=== PATIENT | male | born 1940 | race African-American/Black ===

== ENCOUNTER 2016-06-15 08:30 | Inpatient (IN) ==
--- NOTE | 2016-06-15 08:56 | Emergency Department Note ---
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 pt states having abd swelling . states he was seen here last week for same complaint. Mode of Arrival: Stretcher Limitations: No Limitations Source: Patient, Old Records Reviewed, RN Notes Reviewed Time Seen by Provider: 06/15/16 08:45 - History of Present Illness HPI Narrative: Patient is a 75-year-old black male with a known history of shortness of breath for the last 3 weeks. Patient was seen last week in the emergency department and diagnosed with congestive heart failure. Patient has a history of hypertension. He states that he has been taking his medications. He is unsure why he is on chronic anticoagulation. Patient states that he has orthopnea and wakes up multiple times during the night short of breath. The patient has dyspnea on exertion and can only walk short distances before becoming short of breath. Patient's Lasix was increased last week. He denies any lower extremity edema. Patient denies alcohol use over the last 20 years. He does not smoke having quit about 20 years ago at the same time he quit drinking. Onset (ago): week(s) (3) Consistency: constant Severity: moderate Allergies/Adverse Reactions: Allergies Allergy/AdvReac Type Severity Reaction Status Date / Time No Known Allergies Allergy Verified 03/30/15 08:48 Home Medications: Home Medications Medication Instructions Recorded Confirmed Type Allopurinol [Zyloprim] 300 mg PO QAM 06/03/16 06/15/16 History Carvedilol [Coreg] 25 mg PO BID 06/03/16 06/15/16 History Colchicine 0.6 mg PO QAM 06/03/16 06/15/16 History Furosemide Tab [Lasix Tab] 40 mg PO DAILY 06/03/16 06/15/16 History Potassium Chloride [Klor-Con M20] 20 meq PO BID 06/03/16 06/15/16 History Warfarin [Coumadin] 1 - 2 mg PO DAILY 06/03/16 06/15/16 History amLODIPine [Norvasc] 10 mg PO QAM 06/03/16 06/15/16 History Loratadine Tab [Claritin Tab] 10 mg PO DAILY 06/15/16 06/15/16 History Review of System - Review of System 12 point system: reviewed and no additional remarkable complaints except as stated - Review of System Constitutional: Absent: chills, fever Respiratory: Present: cough. Absent: respiratory distress, wheezing Cardiovascular: Present: dyspnea on exertion, orthopnea. Absent: chest pain, edema, syncope Medical,Surgical,& Family Hx - Medical History Cardio: History of: Hypertension, Cardiovascular Problems (? heart problems) Rheumatology: History of;: Gout - Social History Smoking Status: Never smoker Frequency of Alcohol Use: None Type of Drug Use: None Functional capacity: independent ambulation Exam Vital Signs: Vital Signs Temperature 98.4 F 06/15/16 08:30 Pulse Rate 91 H 06/15/16 08:30 Respiratory Rate 18 06/15/16 08:50 Blood Pressure 140/78 06/15/16 08:30 O2 Sat by Pulse Oximetry 99 06/15/16 08:30 GENERAL: This is a well-nourished well-developed black male chronically ill- appearing in no apparent distress. VITAL SIGNS: Reviewed HEENT: Head is atraumatic and normocephalic. Pupils are equal round react to light. Extraocular movements are intact. Oropharynx is benign with moist mucous membranes. NECK: Neck is soft and supple without tenderness. There are no masses. There is no lymphadenopathy. LUNGS: Lungs are clear to auscultation. Chest rises symmetrically. There is no chest wall tenderness. CV: Heart is regular rate and rhythm without murmurs rubs or gallops. No JVD. ABDOMEN: Abdomen is soft, nontender to palpation. There are no abdominal abnormal masses palpated. There is no organomegaly. Bowel sounds are present and active. SKIN: Skin is warm and dry. No rash. EXTREMITIES: Patient has full range of motion without tenderness. There is no pedal edema. NEUROLOGIC: Awake alert and oriented 4. Cranial nerves II through XII are grossly intact. Motor is 5 over 5 in all extremities bilaterally. Course - Consultations Consultation #1: Discussed with hospitalist. Patient will be admitted to their service. Time: 10:32 Results - Labs CBC & BMP: 06/15/16 08:42 06/15/16 08:42 Lab Results: I have reviewed the patients labs Labs: Laboratory Tests 06/15/16 08:42 B-Natriuretic Peptide 436 H - EKG EKG results: interpreted by ERMD - Impressions EKG: Normal sinus rhythm with rate of 89, first-degree AV block, LVH with ST segment changes. Normal axis. - Diagnostic Findings Procedure: Chest x-ray: image reviewed by me (Increased pulmonary markings bilaterally) Disposition Clinical Impression: Congestive heart failure, Essential hypertension, LVH (left ventricular hypertrophy), Chronic anticoagulation Case discussed with: patient Disposition: Still a Patient Condition: Stable Time of Disposition: 10:32
[2016-06-15 09:03] LABS: Basophils # 0.1 10*3/uL (0.0-0.2); Basophils % 0.5 % (0.0-0.8); Eosinophils # 0.1 10*3/uL (0.0-0.87); Eosinophils % 1.2 % (0.00-10.9); Immature Granulocytes % 0.6 %; Immature Granulocytes Absolute 0.07 #; Lymphocytes # 1.4 10*3/uL (1.4-4.0); Lymphocytes % 11.6 % (21.2-54.2); Mean Corpuscular HGB Conc 33.3 GM/DL (32-36); Mean Corpuscular Hemoglobin 33 PG (27-34); Mean Corpuscular Volume 98.2 FL (87-102); Mean Platelet Volume 12.5 FL (9.6-12.0); Monocytes # 0.7 10*3/uL (0.11-0.8); Monocytes % 6.1 % (1.7-12.7); Neutrophils # 9.7 10*3/uL (1.4-7.4); Platelet Count 236 T/CUMM (130-400); Red Blood Count 3.36 MC/CUMM (3.8-5.5); White Blood Count 12.2 T/CUMM (4-12)
--- NOTE | 2016-06-15 09:13 | XRay Report ---
Chest, 2 views History short of breath Comparison 06/03/2016 The heart and vessels are enlarged. Hilar contours unchanged The lungs are chronically hyperbarics and 8 There has been development of increasing bilateral hazy and interstitial pulmonary opacities with curly B lines in the lung bases and this light increasing pleural fluid. No more focal consolidation is seen Impression: Worsening of the pulmonary edema PROCEDURE INTERPRETED AT [facility] DEPARTMENT OF RADIOLOGY Final Report Signed by: Dr. Shanda Leach
[2016-06-15 09:18] LABS: INR 3.5
[2016-06-15 09:20] LABS: Apearance,Urine CLEAR (Clear); Bilirubin,Urine Negative (Negative); Blood, Urine Negative (Negative); Glucose,Urine (UA) Negative (Negative); Hyaline Casts,Urine 1 /LPF (0-3); Ketones,Urine Negative (Negative); Mucus,Urine Occasional /LPF (Occasional); Nitrite,Urine Negative (Negative); Protein,Urine >=500 MG/DL; RBC,Urine <1 /HPF (0-4); Squamous Epithelial Cell,Urine Occasional /HPF (0-10); Urine Color Yellow (Yellow); Urine Specific Gravity 1.014 (1.001-1.035); Urine Urobilinogen < 2.0 EU/DL (0.2-1.0); WBC,Urine <1 /HPF (0-6)
[2016-06-15 09:23] LABS: PT Patient Result 39.6 SECS; Partial Thromboplastin Time 58.7 SECS (0-40)
[2016-06-15 09:27] LABS: Barbiturates Screen,Urine Negative (Negative); Benzodiazepines Screen,Urine Negative (Negative); Cannabinoid Screen,Urine Negative (Negative); Opiate Screen,Urine Negative (Negative); Phencyclidine Screen,Urine Negative (Negative)
[2016-06-15 09:36] LABS: Alanine Aminotransferase 42 U/L (16-61); Albumin 3.6 G/DL (3.4-5.0); Alkaline Phosphatase 66 U/L (45-117); Aspartate Amino Transferase 29 U/L (0-37); Blood Urea Nitrogen 24 MG/DL (7-18); Calcium 8.5 MG/DL (8.5-10.1); Glucose 93 MG/DL (74-106); Osmolality,Calculated 284.3 MOS/KG (273-304); Potassium 4.3 MMOL/L (3.5-5.1); Sodium 141 MMOL/L (136-145); Total Protein 6.6 G/DL (6.4-8.3); Troponin I Only < 0.015 NG/ML (0.00-0.045)
--- NOTE | 2016-06-15 11:14 | Ultrasound Report ---
History short of breath Bilateral lower extremity venous Doppler performed with grayscale, spectral Doppler, and color flow analysis performed and interpreted. No evidence of echogenic, noncompressible thrombus seen in either common femoral, superficial femoral, popliteal, or saphenous veins Impression: No evidence of DVT seen in either lower extremity. PROCEDURE INTERPRETED AT [facility] DEPARTMENT OF RADIOLOGY Final Report Signed by: Dr. Shanda Leach
--- NOTE | 2016-06-15 11:18 | Hospitalist History & Physical ---
Assessment and Plan (1) Chronic anticoagulation Status: Acute Assessment and plan: The patient requires life-long anticoagulation due to paroxysmal atrial fib. We will obtain baseline PT/INR and adjust accordingly. Current Visit: Yes (2) Congestive heart failure Status: Acute Assessment and plan: We will obtain echocardiogram, bilateral venous and carotid dopplers. Will obtain BNP, lipid and thyroid panel now. CXR, CMP, Mg, Phos, and CBC in AM. Current Visit: Yes (3) Essential hypertension Status: Acute Assessment and plan: Will resume home medications and manage during the clinical encounter. Current Visit: Yes (4) LVH (left ventricular hypertrophy) Status: Acute Assessment and plan: Will obtain echocardiogram to assess current heart function. Will consult cardiology to assist in management. Current Visit: Yes History of Present Illness Chief complaint: "shortness of breath" History of present illness: This is a pleasant 75 year-old male that presents to the ED this morning with a chief compliant of "shortness of breath". The patient has a rather extensive medical history of hypertension, paroxysmal atrial fibrillation , hypertensive cardiomyopathy, and gouty arthritis. He also reports a remote history of alcohol and tobacco abuse; however reports he reports "stopping over 20 years ago". He reports the onset of shortness of breath about "two months ago " with gradual worsening of condition; for which he presented to the ED two times in recent months. He reports that the dyspnea is increased with exertion and during the night time hours. Pertinent positives include: cough ,vertigo, and dyspnea. Pertinent negatives include: chest pain, nausea, and vomiting. He reports that he is a current patient of Dr. Scanlon; whom currently manages his coumadin and cardiomyopathy. He will be admitted to the hospitalist services for continuation of care. We will consult Dr. Scanlon patient is known to him to assist in his care during this clinical encounter. Home Medications Medication Instructions Recorded Confirmed Type Allopurinol [Zyloprim] 300 mg PO QAM 06/03/16 06/15/16 History Carvedilol [Coreg] 25 mg PO BID 06/03/16 06/15/16 History Colchicine 0.6 mg PO QAM 06/03/16 06/15/16 History Furosemide Tab [Lasix Tab] 40 mg PO DAILY 06/03/16 06/15/16 History Potassium Chloride [Klor-Con M20] 20 meq PO BID 06/03/16 06/15/16 History Warfarin [Coumadin] 1 - 2 mg PO DAILY 06/03/16 06/15/16 History amLODIPine [Norvasc] 10 mg PO QAM 06/03/16 06/15/16 History Loratadine Tab [Claritin Tab] 10 mg PO DAILY 06/15/16 06/15/16 History Allergies Allergy/AdvReac Type Severity Reaction Status Date / Time No Known Allergies Allergy Verified 03/30/15 08:48 Medical,Surgical,& Family Hx - Medical History Cardio: History of: Hypertension, Cardiovascular Problems (? heart problems) Rheumatology: History of;: Gout - Social History Smoking Status: Former smoker (Remote history; reports stopping in 1999) Frequency of Alcohol Use: None (Remote histroy of ETOH abuse;reports stopping in 1999) Type of Drug Use: None 12 point system: reviewed and no additional remarkable complaints except as stated Exam - Constitutional Vitals: Period Temp Pulse Resp BP Sys/Garcia Pulse Ox Last 24 Hr 98.4 F-98.4 F 91-91 18-18 140-140/78-78 99 General appearance: normal weight, no acute distress - Head Head exam: Present: normal inspection, normocephalic, atraumatic - Eye Eye exam: Present: EOMI Pupils: Present: LORETTA - ENT ENT exam: Present: normal exam - Neck Neck exam: Present: normal inspection. Absent: lymphadenopathy, meningismus, tenderness, thyromegaly - Respiratory Respiratory exam: Present: decreased breath sounds. Absent: accessory muscle use, rales, rhonchi, stridor, wheezes - Cardiovascular Cardiovascular exam: Present: regular rate and rhythm. Absent: gallop, JVD, rubs, tachycardia - GI/Abdominal GI/Abdominal exam: Present: normal bowel sounds, soft. Absent: firm, guarding - Extremities Exam Extremities exam: Present: full ROM. Absent: normal inspection, edema - Back Exam Back exam: Present: normal inspection - Neurological Exam Neurological exam: Present: alert, oriented X3, CN II-XII intact - Psychiatric Psychiatric exam: Present: normal affect - Skin Skin exam: Present: normal color, dry Results - Labs CBC & BMP: 06/15/16 08:42 06/15/16 08:42 Lab Results: I have reviewed the past 24 hour labs Quality Measures - VTE Deep Vein Thrombosis/Pulmonary Embolism Present on Admission: No
--- NOTE | 2016-06-15 13:37 | Ultrasound Report ---
History is hypertension Grayscale, spectral Doppler, and color flow analysis performed and interpreted There is a [id number] amount of soft and partially calcified plaque in the distal common and proximal internal carotid arteries bilaterally There is more prominent elongated soft plaque in the distal common carotid artery on the right maximum systolic velocities are 73 in the right and 49 on the left Peak systolic ratios are 0.3 on the right and 1.1 on the left There is antegrade flow in both vertebral arteries NASCET criteria utilized Impression: 1. Mild to moderate amounts of plaque with less than 50% diameter stenoses of both proximal ICAs. 2. Elevated velocities and large amount of soft plaque in the distal common carotid artery on the right raising question of at least moderate right common carotid artery stenosis PROCEDURE INTERPRETED AT [facility] DEPARTMENT OF RADIOLOGY Final Report Signed by: Dr. Shanda Leach
[2016-06-15] MEDS ORDERED: MORPHINE 2 MG/1 ML SYRINGE IV PRN (15:45)
[2016-06-15] MEDS ORDERED: ONDANSETRON 4 MG/2 ML VIAL IV PRN (15:45)
[2016-06-15] MEDS ORDERED: DOCUSATE SODIUM 100 MG CAPSULE PO PRN (15:45)
[2016-06-15] MEDS ORDERED: ZALEPLON 5 MG CAPSULE PO PRN (15:45)
[2016-06-15] MEDS ORDERED: ACETAMINOPHEN 325 MG TABLET PO PRN (15:45)
[2016-06-15] MEDS ORDERED: guaiFENesin/DM ER 600-30 MG TABLET PO PRN (15:45)
[2016-06-15] MEDS ORDERED: ALBUTEROL/IPRATROPIUM 3 ML NEB RESP TX PRN (15:49)
[2016-06-15] MEDS ORDERED: methylPREDNISolone SOD SUC 125 MG/2 ML VIAL IV ONE (15:49)
[2016-06-15] MEDS ORDERED: FUROSEMIDE 40 MG/4 ML VIAL IV STA (15:51)
[2016-06-15] MEDS ORDERED: FUROSEMIDE 40 MG/4 ML VIAL IV SCH (16:00)
[2016-06-15] MEDS: ALBUTEROL/IPRATROPIUM 3 ML NEB RESP TX SCH ×2 (16:01→20:42)
[2016-06-15] MEDS: cefTRIAXone 1,000 MG in SODIUM CHLORIDE 0.9% 100 ML IV SCH (17:07)
[2016-06-15 17:13] LABS: INR 3.1
[2016-06-15 17:29] LABS: Troponin I Only < 0.015 NG/ML (0.00-0.045)
--- NOTE | 2016-06-15 17:48 | ECHO Report ---
Aki Terry Exam Date: 06/15/2016 09:36 Referring Physician: Technologist: Age: 75 Ht (in): Wt (lb): Gender: M Exam Location: [facility] Echo Indications: BP: / HR: Rhythm: Sinus Technical Quality: IMPRESSIONS Mildly increased left ventricular cavity size. Mild concentric hypertrophy. Severe global hypokinesis, estimated left ventricle ejection fraction 15%. Grade 3 diastolic dysfunction. Mildly dilated right ventricle, with normal systolic function and mild pulmonary hypertension. Mild biatrial enlargement. Mild to moderate mitral valve regurgitation. Mild aortic valve sclerosis, without stenosis or insufficiency. MEASUREMENTS (Male / Female) Normal Values 2D ECHO LV Diastolic Diameter PLAX 5.1 cm 4.2 - 5.9 / 3.9 - 5.3 cm LV Systolic Diameter PLAX 4.9 cm LV Fractional Shortening PLAX 4.1 % IVS Diastolic Thickness 1.1 cm 0.6 - 1.0 / 0.6 - 0.9 cm LVPW Diastolic Thickness 1.2 cm 0.6 - 1.0 / 0.6 - 0.9 cm RV Internal Dim ED PLAX 2.6 cm Aortic Root Diameter 2.9 cm LA Systolic Diameter LX 4.3 cm 3.0 - 4.0 / 2.7 - 3.8 cm DOPPLER TR Peak Velocity 345.0 cm/s TR Peak Gradient 47.6 mmHg FINDINGS Left Ventricle Mildly increased left ventricular cavity size. Mild concentric hypertrophy. Severe global hypokinesis, estimated left ventricle ejection fraction 15%. Grade 3 diastolic dysfunction Right Ventricle Mildly dilated right ventricle, with normal systolic function. Right Atrium Mild right atrial enlargement. Left Atrium Mild left atrial enlargement. Mitral Valve Mild to moderate mitral valve regurgitation, structurally normal mitral valve. Aortic Valve Mild aortic valve sclerosis, without stenosis or insufficiency. Tricuspid Valve Mild tricuspid valve sclerosis. Moderate tricuspid valve regurgitation. Tricuspid regurgitation velocities suggest a PAP of 47.6 mmHg + RAP. Pulmonic Valve Morphologically normal pulmonic valve. Pericardium No pericardial effusion. Aorta Normal size aortic root and proximal ascending aorta. Amarjit Dockery (Electronically Signed) Final Date: 15 June 2016 17:47
--- NOTE | 2016-06-15 17:59 | Cardiology Consult Note ---
Roby Grier Vanessa, RN, am scribing for, and in the presence of, Amarjit Dockery MD 17 :57. Assessment and Plan - Time spent with patient Time spent with patient: Greater than 30 minutes (Due to assessment, planning, documentation, medication review) (1) Congestive heart failure Status: Acute Assessment and plan: 75 year old black male with PMHx of HTN, NICM, PAF, CRI, hypertensive heart disease, former tobacco and ETOH abuse, GERD. He has chronic dyspnea and easy fatigability. Admitted with worsening of shortness of breath, orthopnea, PND, and abd swelling over the past 3-4 days. 12 lead EKG is without acute ST changes , cardiac biomarkers are normal. Chest x-ray with worsening of pulmonary edema vs CXR on 06/03/16. LVEF 15%, mild PHTN. NSVT on telemetry. Na, Bp in normal range. -Acute on chronic systolic plus diastolic CHF. Fair response to diuretics so far. Continue Lasix 40 mg IV twice daily, monitor electrolytes and replete as needed. -Nonsustained VT. Continue beta-giovana, as blood pressure allows. -If becomes hypotensive, may hold CCB -Follow renal Fx. May add ACEI if stable. Otherwise, NTG/hydralazine will be an option -He seems to be adequately perfused, but has severe systolic dysfunction. It is difficult to diurese, may consider dobutamine or milrinone. -PAF. No in SR. Continue anticoagulation with Coumadin. -Cardiac rehab consult Current Visit: Yes (2) NICM (nonischemic cardiomyopathy) Status: Acute Current Visit: Yes (3) Chronic anticoagulation Status: Acute Current Visit: Yes (4) Essential hypertension Status: Acute Current Visit: Yes (5) LVH (left ventricular hypertrophy) Status: Acute Current Visit: Yes History of Present Illness - Data of Consult Patient: known to practice within the last 3 years Consult date: 06/15/16 Requesting Physician: Hugh Davila Primary care physician: Zaida Nieves - Consult Narrative Reason for consult: shortness of breath History of present illness: Mr. Terry is a 75 year old black male followed by Dr. Pino Scanlon for cardiology. PMHx includes HTN, hypertensive heart disease, NICM with EF 35-40%, paroxsymal AF, chronic anticoagulation, former tobacco and ETOH abuse, GERD, gout, and arthritis. Presented to the ER today with c/o of increasing dyspnea at rest and with exertion, orthopnea, and abd swelling, onset 3-4 days ago. He was seen in the ER with same complaint on 06/03/16 with similar complaint. Chest x-ray on 06/03 with pulmonary edema vs PNA. Home Lasix dosage was increased from 40 mg by mouth daily to twice daily. Chest x-ray today showed worsening of pulmonary edema. He is now admitted to telemetry to hospitalist service for further treatment of CHF. Cardiology has been consulted for evaluation. 12 lead EKG shows SR with pulse rate 80s, LVH, no acute ST segment changes. Venous doppler US BLE's negative for DVT findings. Carotid doppler US mild to moderate plaque with less than 50% stenoses of bilateral proximal ICA's. Cardiac biomarkers are normal. BNP on today's blood work is 436 (599 on 06/03). Other labs reviewed: WBC 12,200, H/H 11 & 33, INR 3.5, K+ 4.3, creatinine is 1.5 with GFR 56 (last creatinine 1.9 on 06/03), Na+ 141. Last cardiac catheterization was in 1998. He has widely patent coronary arteries and decreased LV EF 25-30% range. Says he has not seen Dr. Scanlon in clinic in "about 2 years." He does go for routine INR checks at [facility] as he is anticoagulated with Coumadin for stroke prevention. Last echocardiogram December 2014 with EF 35-40%, severe anteroapical hypokinesis, mild TR with PA pressure 40 mmHg, aortic sclerosis, grade I diastolic dysfunction. Echocardiogram has been ordered this admission and will be reviewed. Patient seen and examined in room on telemetry. Family is present at bedside. His resp distress improved.effort. Oxygen via NC. Denies recent or current CP. Denies recent or current LE edema. Reports chronic shortness of breath, but orthopnea worsened over the past few days and he has to elevate to 90 degrees to breathe comfortably. Reports PND which has worsened over last 3-4 days also. No recent chills or fever. Does have wet, nonproductive cough. Denies phlegm production. Slight abd discomfort with palpation, no rebound tenderness, and it is not severely distended. BP is 140/70. CC: Erika Da Silva MD - Home Medications and Allergies Home Medications: Home Medications Medication Instructions Recorded Confirmed Type Allopurinol [Zyloprim] 300 mg PO QAM 06/03/16 06/15/16 History Carvedilol [Coreg] 25 mg PO BID 06/03/16 06/15/16 History Colchicine 0.6 mg PO QAM 06/03/16 06/15/16 History Furosemide Tab [Lasix Tab] 40 mg PO DAILY 06/03/16 06/15/16 History Potassium Chloride [Klor-Con M20] 20 meq PO BID 06/03/16 06/15/16 History Warfarin [Coumadin] 3 mg PO MOWEFR 06/03/16 06/15/16 History amLODIPine [Norvasc] 10 mg PO QAM 06/03/16 06/15/16 History Hydrocodone/Acetaminophen 1 tablet PO TID PRN 06/15/16 06/15/16 History [Hydrocodon-Acetaminoph 7.5-325] Loratadine Tab [Claritin Tab] 10 mg PO DAILY 06/15/16 06/15/16 History Warfarin [Coumadin] 1.5 mg PO TUTHSA 06/15/16 06/15/16 History Allergies/Adverse Reactions: Allergies Allergy/AdvReac Type Severity Reaction Status Date / Time No Known Allergies Allergy Verified 03/30/15 08:48 - Constitutional Constitutional: Present: daytime sleepiness, weakness. Absent: chills, fever(s) , night sweats, stops breathing during sleep, weight gain, weight loss - EENT Ears: Absent: decreased hearing Nose, mouth and throat: Absent: dysphagia, epistaxis, neck pain, sinus pressure , throat swelling, vertigo - Cardiovascular Cardiovascular: Present: dyspnea, dyspnea on exertion, orthopnea, PND. Absent: chest pain at rest, chest pain with activity, claudication, diaphoresis, edema, radiating jaw, neck or arm pain, lightheadedness, palpitations - Respiratory Respiratory: Present: cough (nonproductive), dyspnea, dyspnea on exertion, wheezing (expiratory). Absent: hemoptysis, snoring, change in phlegm color - Gastrointestinal Gastrointestinal: Absent: abdominal pain, bloating, constipation, cramping, dyspepsia, dysphagia, heartburn, melena, nausea, vomiting - Genitourinary Genitourinary: Present: difficulty urinating, dysuria. Absent: flank pain, hematuria, testicular pain, urinary frequency, urinary incontinence - Musculoskeletal Musculoskeletal: Present: arthralgias. Absent: limited range of motion, myalgias - Neurological Neurological: Absent: abnormal speech, confusion, dizziness, syncope, tremor(s) - Psychiatric Psychiatric: Absent: anxiety, difficulty concentrating - Endocrine Endocrine: Present: fatigue. Absent: cold intolerance, heat intolerance - Hematologic/Lymphatic Hematologic/Lymphatic: Present: easy bleeding, easy bruising Medical,Surgical,& Family Hx - Medical History Cardio: History of: Cardiac Dysrhythmia (pAF), CHF, Hypertension, Cardiovascular Problems (: states has "heart problems and heart doctor but doenst know why") No history of: Congenital Heart Disease, VT, Pacemaker, PVD Neurology: No history of: Seizures, TIA Endocrine: No history of: Diabetes Mellitus (IDDM), Diabetes Mellitus (NIDDM) Rheumatology: History of;: Gout Respiratory: History of: COPD Renal: History of: Renal Problems (Chronic renal insufficiency) Gastrointestinal: History of: GERD Musculoskeletal: History of: Musculoskeletal Problems (Arthritis) Hematology: No history of: Anemia, Bleeding Problems, Clotting Problems, Hematologic Cancer Other: No history of: Cancer - Surgical History Cardiac Surgeries: Sugical HX of: Cardiac Catheterization (1998- patent coronaries, EF 25-30%) Patient Denies: Cardiac Surgery, Carotid Endarterectomy, Internal Defibrillator HEENT Surgeries: Patient denies: Carotid Endarterectomy - Family History Family History: Reports;: Family Diabetes (brother mother), Family Heart Disease , Family Hypertension, Family Stroke - Social History Smoking Status: Never smoker Frequency of Alcohol Use: None Type of Drug Use: None Marital Status: Single Functional capacity: independent ambulation Physical Examination Vital Signs Temp Pulse Resp BP Pulse Ox 98.4 F 91 H 18 140/78 99 06/15/16 08:30 06/15/16 08:30 06/15/16 08:30 06/15/16 08:30 06/15/16 08:30 General: Present: Other (mild distress) HEENT: Present: PERRL, Normocephaly, Mucus Membranes Moist. Absent: Jaundice, Pallor Neck: Present: Supple Neck, Midline Trachea, JVD/HJR, No Masses, No Bruit Cardiac: Present: Reg Rate and Rhythm, No Murmur. Absent: Tachycardia, Bradycardia Lungs: Present: Decreased Breath Sounds, Rales - Left, Rales - Right, Wheezes ( expirational; RLL), Oxygen. Absent: Ventilated Respirations Neuro: Present: Grossly Intact. Absent: Numbness, Weakness, Resting Tremor, Essential Tremor Abdomen: Present: Soft, Active Bowel Sounds. Absent: Ascites, Tender, Firm Skin: Present: Clear. Absent: Rash, Suspicious Lesions Musculoskeletal: Present: Decreased Range of Motion, No Fluid Collection Extremities: Present: No Clubbing, No Cyanosis, Normal Upper Extr. Pulses (2+ bilaterally), Normal Lower Extr. Pulses (2+ bilaterally), Capillary Refill ( normal) Result/EKG - Labs CBC & BMP: 06/15/16 08:42 06/15/16 08:42 Lab Results: I have reviewed the past 24 hour labs Labs: Laboratory Results - last 24 hr 06/15/16 06/15/16 16:21 16:21 INR 3.1 PT Patient/Control Mix 35.0 Total Creatine Kinase 111 CK-MB (CK-2) 1.5 Troponin I < 0.015 - Diagnostic Findings Procedure: Chest x-ray: report reviewed by me, image reviewed by me (06/15/16: Worsening of pulmonary edema when compared to film on 06/03/16), Ultrasound: image reviewed by me, report reviewed by me - EKG EKG results: interpreted by me EKG shows: sinus rhythm Quality Measures - VTE Deep Vein Thrombosis/Pulmonary Embolism Present on Admission: No Nahed Grier Attila, MD, personally performed the services described in this documentation, ascribed by Cathy Ca RN in my presence, and it is both accurate and complete 759 .
[2016-06-15] MEDS ORDERED: WARFARIN 3 MG TABLET PO SCH (18:00)
[2016-06-15] MEDS: POTASSIUM CHLORIDE 20 MEQ TABLET PO SCH (20:25)
[2016-06-15] MEDS: CARVEDILOL 25 MG TABLET PO SCH (20:26)
[2016-06-15 22:28] LABS: Troponin I Only < 0.015 NG/ML (0.00-0.045)
[2016-06-16] MEDS: methylPREDNISolone SOD SUC 125 MG/2 ML VIAL IV SCH ×4 (00:25→23:53)
[2016-06-16] MEDS: ALBUTEROL/IPRATROPIUM 3 ML NEB RESP TX SCH ×4 (01:06→19:46)
[2016-06-16 06:25] LABS: Hematocrit 32.9 VOL% (42.0-52.0); Immature Granulocytes % 0.6 %; Immature Granulocytes Absolute 0.04 #; Lymphocytes # 0.6 10*3/uL (1.4-4.0); Lymphocytes % 8.7 % (21.2-54.2); Mean Corpuscular HGB Conc 33.4 GM/DL (32-36); Mean Corpuscular Hemoglobin 33 PG (27-34); Mean Corpuscular Volume 98.2 FL (87-102); Mean Platelet Volume 12.9 FL (9.6-12.0); Monocytes % 0.6 % (1.7-12.7); Neutrophils # 5.9 10*3/uL (1.4-7.4); Neutrophils % 90.1 % (38.7-73.9); Platelet Count 189 T/CUMM (130-400); Red Blood Count 3.35 MC/CUMM (3.8-5.5); Red Cell Distribution Width 15.7 % (9.3-17.3); White Blood Count 6.5 T/CUMM (4-12)
[2016-06-16 06:39] LABS: INR 2.7
[2016-06-16 07:01] LABS: Magnesium 2.7 MG/DL (1.8-2.4); Phosphorous 1.8 MG/DL (2.5-4.9)
[2016-06-16 07:12] LABS: Blood Urea Nitrogen 30 MG/DL (7-18); Calcium 8.9 MG/DL (8.5-10.1); Cholesterol 173 MG/DL (50-200); Glucose 209 MG/DL (74-106); HDL Cholesterol 66 MG/DL (40-60); Potassium 4.2 MMOL/L (3.5-5.1); Risk Ratio 2.62; Sodium 136 MMOL/L (136-145); Triglycerides 117 MG/DL (2-150); Troponin I Only < 0.015 NG/ML (0.00-0.045); VLDL CHOLESTEROL 23.4 MG/DL
--- NOTE | 2016-06-16 07:44 | XRay Report ---
Referring Physician: ALCON Davila Exam: XR chest 1V portable Date: June 16, 2016 at 6:12 AM Reason: COPD Comparison: Chest 2 views June 15, 2016 Findings: The heart is borderline enlarged. The interstitial markings are prominent bilaterally, which likely reflects mild pulmonary edema. No pneumothorax or pleural effusion is identified. No acute osseous process is seen. Impression: Mild pulmonary edema, improved since the previous study. PROCEDURE INTERPRETED AT [facility] DEPARTMENT OF RADIOLOGY Final Report Signed by: Dr. Susu Sanon
[2016-06-16] MEDS ORDERED: FUROSEMIDE 20 MG/2 ML VIAL IV ONE (08:02)
[2016-06-16] MEDS: amLODIPine 10 MG TABLET PO SCH (09:12)
[2016-06-16] MEDS: COLCHICINE 0.6 MG TABLET PO SCH (09:12)
[2016-06-16] MEDS: PANTOPRAZOLE 40 MG TABLET PO SCH (09:13)
[2016-06-16] MEDS: CARVEDILOL 25 MG TABLET PO SCH ×2 (09:13→21:16)
[2016-06-16] MEDS: POTASSIUM CHLORIDE 20 MEQ TABLET PO SCH ×2 (09:14→21:20)
[2016-06-16] MEDS: LORATADINE 10 MG TABLET PO SCH (09:14)
[2016-06-16] MEDS: ALLOPURINOL 300 MG TABLET PO SCH (09:14)
[2016-06-16] MEDS: FUROSEMIDE 40 MG/4 ML VIAL IV SCH ×2 (09:38→15:45)
--- NOTE | 2016-06-16 10:06 | EKG Report ---
Stationary ECG Study 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
--- NOTE | 2016-06-16 11:09 | Hospitalist Progress Note ---
Assessment and Plan (1) Chronic anticoagulation Status: Chronic Assessment and plan: The patient requires life-long anticoagulation due to paroxysmal atrial fib. Coumadin held on yesterday; INR 3.1. INR today 2.7; will resume Coumadin dose per Cardiology recommendations. Current Visit: Yes (2) Congestive heart failure Status: Acute Assessment and plan: Diuresed on yesterday; however BNP increased to 797 from 436 on yesterday. Will give an extra dose of lasix this morning and recheck BNP in AM. Current Visit: Yes (3) Essential hypertension Status: Chronic Assessment and plan: Will resume home medications and manage during the clinical encounter. Current Visit: Yes (4) LVH (left ventricular hypertrophy) Status: Chronic Assessment and plan: Echo on yesterday confirmed an EF of 15%. Cardiology to mange medically. Current Visit: Yes (5) Paroxysmal atrial fibrillation Status: Acute Assessment and plan: Continue coumadin per Cardiology recommendations. Current Visit: Yes (6) Renal function impairment Status: Acute Assessment and plan: Subtle changes in renal function; BUN/Creatinine 30/1.90 today; up from 24/1.50 on yesterday. Agree with Cardiology recommendations to start nitrates/hydralize. Current Visit: Yes Hospitalist: Subjective Interval history: Patient seen and examined. No signficant overnight events reported. Diuresed on yesterday; UOP significant; however BNP elevated further at 797 up from 436. He appears to be in no acute distress and is not short of breath at the time of encounter. He states " I feel much better than I did when I came here". Exam - Constitutional Vitals: Period Temp Pulse Resp BP Sys/Garcia Pulse Ox Last 24 Hr 97.2 F-99.2 F 60-112 16-20 119-146/57-81 93-100 General appearance: normal weight, no acute distress - Head Head exam: Present: normal inspection, normocephalic - Eye Eye exam: Present: EOMI. Absent: conjunctival injection, nystagmus, periorbital swelling, scleral icterus Pupils: Present: LORETTA, normal accommodation - ENT ENT exam: Present: normal exam - Neck Neck exam: Present: normal inspection. Absent: lymphadenopathy, meningismus, tenderness, thyromegaly - Respiratory Respiratory exam: Present: decreased breath sounds. Absent: rales, rhonchi, stridor, wheezes - Cardiovascular Cardiovascular exam: Present: regular rate and rhythm. Absent: carotid bruit, diastolic murmur, gallop, JVD, rubs, systolic murmur - GI/Abdominal GI/Abdominal exam: Present: normal bowel sounds, soft. Absent: distended, guarding, mass, tenderness - Extremities Exam Extremities exam: Present: normal inspection, edema (+2 lower extremeties) - Neurological Exam Neurological exam: Present: alert, oriented X3, CN II-XII intact - Psychiatric Psychiatric exam: Present: normal affect, normal mood - Skin Skin exam: Present: normal color, warm, dry Results - Labs CBC & BMP: 06/16/16 05:42 06/16/16 05:42 Lab Results: I have reviewed the past 24 hour labs Quality Measures - VTE Deep Vein Thrombosis/Pulmonary Embolism Present on Admission: No Specialty Discharge - Follow Up or Referrals
[2016-06-16] MEDS: cefTRIAXone 1,000 MG in SODIUM CHLORIDE 0.9% 100 ML IV SCH (16:22)
--- NOTE | 2016-06-16 16:55 | Cardiology Progress Note ---
Roby Grier Vanessa, RN, am scribing for, and in the presence of, Amarjit Dockery MD 16 :50. Assessment and Plan - Time spent with patient Time spent with patient: Greater than 30 minutes (1) Congestive heart failure Status: Acute Assessment and plan: 75 year old black male with PMHx of HTN, NICM, PAF, CRI, hypertensive heart disease, former tobacco and ETOH abuse, GERD. He has chronic dyspnea and easy fatigability. Admitted with worsening of shortness of breath, orthopnea, PND, and abd swelling over the past 3-4 days. 12 lead EKG is without acute ST changes , cardiac biomarkers remain normal. CXR with improvement of pulmonary edema today. Echo yesterday with LV EF 15%, mild PHTN. BP good range. 1. Acute on chronic systolic + diastolic CHF. Continue diuresis with IV Lasix. Continue to monitor electrolytes, replete as needed. 2. NSVT- continue BB. BP tolerating well. 3. HTN - well controlled 4. Worsened CMP. Add Imdur 30 mg qd, hydralazine 10 mg tid. If hypotension limit dose titration, may d/c amlodipine. CKD limits ACEI 5. PAF- remains in SR. Continue Coumadin 6. NSVT - no recurrence since CHF improved. If LVEF remains depressed despite medical management, he can be a candidate for ICD. No SCIENTIFIC ILLUSTRATOR indication Current Visit: Yes (2) NICM (nonischemic cardiomyopathy) Status: Chronic Current Visit: Yes (3) Chronic anticoagulation Status: Chronic Current Visit: Yes (4) Essential hypertension Status: Chronic Current Visit: Yes (5) LVH (left ventricular hypertrophy) Status: Chronic Current Visit: Yes Cardiology - PN: Subj Interval history: Feeling much better today. Denies CP, SOB. Some mild FONSECA with ambulation to bathroom and back to bed. BP stable. Chest x-ray with some improvement, BNP is elevated today to 797. Creatinine increased to 1.9 today. SR with HR 80s. Telemetry reviewed and no recurrence of NSVT overnight. Exam (Progress Note) - Constitutional Vitals: Period Temp Pulse Resp BP Sys/Garcia Pulse Ox Last 24 Hr 97.2 F-99.2 F 60-112 16-20 119-146/57-81 93-100 Exam: General: Present: No acute distress HEENT: Present: PERRL, Normocephaly, Mucus Membranes Moist. Absent: Jaundice, Pallor Neck: Present: Supple Neck, Midline Trachea, JVD/HJR, No Masses, No Bruit Cardiac: Present: Reg Rate and Rhythm, No Murmur. Absent: Tachycardia, Bradycardia Lungs: Present: Decreased Breath Sounds, scattered rales throughout-some improvement today, Oxygen. Absent: Ventilated Respirations, wheeze, rhonchi Neuro: Present: Grossly Intact. Absent: Numbness, Weakness, Resting Tremor, Essential Tremor Abdomen: Present: Soft, Active Bowel Sounds. Absent: Ascites, Tender, Firm Skin: Present: Clear. Absent: Rash, Suspicious Lesions Musculoskeletal: Present: Decreased Range of Motion, No Fluid Collection Extremities: Present: No Clubbing, No Cyanosis, Normal Upper Extr. Pulses (2+ bilaterally), Normal Lower Extr. Pulses (2+ bilaterally), Capillary Refill ( normal) Result/EKG - Labs CBC & BMP: 06/16/16 05:42 06/16/16 05:42 Lab Results: I have reviewed the past 24 hour labs Labs: Laboratory Results - last 24 hr 06/15/16 06/15/16 06/15/16 16:21 16:21 21:21 WBC RBC Hgb Hct MCV MCH MCHC RDW Plt Count MPV Neut % (Auto) Lymph % (Auto) [place]not[place] % (Auto) Eos % (Auto) Baso % (Auto) Neut # (Auto) Lymph # (Auto) [place] # (Auto) Eos # (Auto) Baso # (Auto) Immature Gran % Nucleated RBC % Immature Gran # Nucleated RBCs # INR 3.1 PT Patient/Control Mix 35.0 Sodium Potassium Chloride Carbon Dioxide Anion Gap BUN Creatinine GFR Calculation BUN/Creatinine Ratio Glucose Calculated Osmolality Calcium Phosphorus Magnesium Total Creatine Kinase 111 114 CK-MB (CK-2) 1.5 1.4 Troponin I < 0.015 < 0.015 B-Natriuretic Peptide Triglycerides Cholesterol LDL Cholesterol VLDL Cholesterol HDL Cholesterol Heart Disease Risk Ratio TSH 3rd Generation 06/16/16 06/16/16 06/16/16 05:42 05:42 05:42 WBC RBC Hgb Hct MCV MCH MCHC RDW Plt Count MPV Neut % (Auto) Lymph % (Auto) [place] % (Auto) Eos % (Auto) Baso % (Auto) Neut # (Auto) Lymph # (Auto) [place] # (Auto) Eos # (Auto) Baso # (Auto) Immature Gran % Nucleated RBC % Immature Gran # Nucleated RBCs # INR 2.7 PT Patient/Control Mix 31.0 Sodium 136 Potassium 4.2 Chloride 103 Carbon Dioxide 23 Anion Gap 14.2 BUN 30 H Creatinine 1.90 H GFR Calculation 42 BUN/Creatinine Ratio 15.00 Glucose 209 H Calculated Osmolality 283.0 Calcium 8.9 Phosphorus Magnesium Total Creatine Kinase 115 CK-MB (CK-2) 1.0 Troponin I < 0.015 B-Natriuretic Peptide 797 H Triglycerides 117 Cholesterol 173 LDL Cholesterol 97.0 VLDL Cholesterol 23.4 HDL Cholesterol 66 H Heart Disease Risk Ratio 2.62 TSH 3rd Generation 1.210 06/16/16 06/16/16 05:42 05:42 WBC 6.5 D RBC 3.35 L Hgb 11.0 L Hct 32.9 L MCV 98.2 MCH 33 MCHC 33.4 RDW 15.7 Plt Count 189 MPV 12.9 H Neut % (Auto) 90.1 H Lymph % (Auto) 8.7 L Knott % (Auto) 0.6 L Eos % (Auto) 0.0 Baso % (Auto) 0.0 Neut # (Auto) 5.9 Lymph # (Auto) 0.6 L K[place]t # (Auto) 0.0 L Eos # (Auto) 0.0 Baso # (Auto) 0.0 Immature Gran % 0.6 Nucleated RBC % 0.0 Immature Gran # 0.04 Nucleated RBCs # 0.00 INR PT Patient/Control Mix Sodium Potassium Chloride Carbon Dioxide Anion Gap BUN Creatinine GFR Calculation BUN/Creatinine Ratio Glucose Calculated Osmolality Calcium Phosphorus 1.8 L Magnesium 2.7 H Total Creatine Kinase CK-MB (CK-2) Troponin I B-Natriuretic Peptide Triglycerides Cholesterol LDL Cholesterol VLDL Cholesterol HDL Cholesterol Heart Disease Risk Ratio TSH 3rd Generation - Diagnostic Findings Procedure: Chest x-ray: image reviewed by me, report reviewed by me (06/16/16: mild pulmonary edema; improved from previous film) - EKG EKG results: interpreted by me EKG shows: sinus rhythm Quality Measures - VTE Deep Vein Thrombosis/Pulmonary Embolism Present on Admission: No Specialty Discharge - Follow Up or Referrals Nahed Grier Attila, MD, personally performed the services described in this documentation, ascribed by Cathy Ca RN in my presence, and it is both accurate and complete 655 .
[2016-06-16] MEDS ORDERED: WARFARIN 2 MG TABLET ONE (17:39)
[2016-06-16] MEDS ORDERED: WARFARIN 3 MG TABLET PO SCH (18:00)
[2016-06-16] MEDS: hydrALAZINE 10 MG TABLET PO SCH (21:20)
[2016-06-16] MEDS: ISOSORBIDE MONONITRATE 30 MG TABLET PO SCH (21:21)
[2016-06-17] MEDS: ALBUTEROL/IPRATROPIUM 3 ML NEB RESP TX SCH ×2 (01:33→06:56)
[2016-06-17 04:03] LABS: Basophils % 0.1 % (0.0-0.8); Hematocrit 30.3 VOL% (42.0-52.0); Hemoglobin 10.1 GM/DL (14.0-18.0); Immature Granulocytes % 0.6 %; Immature Granulocytes Absolute 0.07 #; Lymphocytes # 0.8 10*3/uL (1.4-4.0); Lymphocytes % 6.7 % (21.2-54.2); Mean Corpuscular HGB Conc 33.3 GM/DL (32-36); Mean Corpuscular Hemoglobin 33 PG (27-34); Mean Corpuscular Volume 97.7 FL (87-102); Mean Platelet Volume 13.2 FL (9.6-12.0); Monocytes # 0.2 10*3/uL (0.11-0.8); Monocytes % 1.5 % (1.7-12.7); NRBC # 0.03 10*3/uL; Neutrophils # 10.6 10*3/uL (1.4-7.4); Neutrophils % 91.1 % (38.7-73.9); Platelet Count 189 T/CUMM (130-400); Red Cell Distribution Width 15.6 % (9.3-17.3); White Blood Count 11.6 T/CUMM (4-12)
[2016-06-17 04:13] LABS: INR 2.4
[2016-06-17 04:23] LABS: PT Patient Result 27.4 SECS
[2016-06-17 04:39] LABS: Albumin 3.3 G/DL (3.4-5.0); Bilirubin,Total 0.6 MG/DL (0.2-1.0); Calcium 8.9 MG/DL (8.5-10.1); Hypochromasia Slight; Lymphocytes 5 % (20-55); Osmolality,Calculated 289.5 MOS/KG (273-304); Phosphorous 3.1 MG/DL (2.5-4.9); Platelet Estimate Adequate; Potassium 4.6 MMOL/L (3.5-5.1); Segmented Neutrophils 95 % (50-85); Target Cells Slight; Total Cells Counted 100; Total Protein 6.2 G/DL (6.4-8.3)
[2016-06-17 04:40] LABS: Magnesium 2.8 MG/DL (1.8-2.4); Osmolality,Calculated 287.7 MOS/KG (273-304); Potassium 4.6 MMOL/L (3.5-5.1)
[2016-06-17 08:36] VITALS: BP 115/76
[2016-06-17] MEDS: CARVEDILOL 25 MG TABLET PO SCH (08:46)
[2016-06-17] MEDS: POTASSIUM CHLORIDE 20 MEQ TABLET PO SCH (08:46)
[2016-06-17] MEDS: PANTOPRAZOLE 40 MG TABLET PO SCH (08:46)
[2016-06-17] MEDS: ISOSORBIDE MONONITRATE 30 MG TABLET PO SCH (08:46)
[2016-06-17] MEDS: amLODIPine 10 MG TABLET PO SCH (08:46)
[2016-06-17] MEDS: COLCHICINE 0.6 MG TABLET PO SCH (08:46)
[2016-06-17] MEDS: hydrALAZINE 10 MG TABLET PO SCH (08:46)
[2016-06-17] MEDS: LORATADINE 10 MG TABLET PO SCH (08:46)
[2016-06-17] MEDS: ALLOPURINOL 300 MG TABLET PO SCH (08:46)
--- NOTE | 2016-06-17 08:49 | Discharge Summary ---
<Sidra Davilada - Last Filed: 06/17/16 09:00> Hospital Course - Hospital Course Hospital Course: This is a pleasant 75 year-old male that presented to the ED on 06/15 with a chief compliant of "shortness of breath". The patient has a rather extensive medical history of hypertension, paroxysmal atrial fibrillation , hypertensive cardiomyopathy, and gouty arthritis. He also reported a remote history of alcohol and tobacco abuse; however reported that he "stopping over 20 years ago". He reported the onset of shortness of breath about two months ago prior to admission with gradual worsening of condition; for which he presented to the ED two times in recent months. He reported that the dyspnea was increased with exertion and during the night time hours. Pertinent positives include: cough ,vertigo,and dyspnea. Pertinent negatives include: chest pain, nausea, and vomiting. He reported that he is a current patient of Dr. Scanlon; whom currently manages his coumadin and cardiomyopathy. He was be admitted to the hospitalist services for continuation of care. Dr. Scanlon was consulted; the patient was known to him.He assisted in his care during the clinical encounter. At the time of admission, the patient was noted to be experiencing severe dyspnea. He was gently diuresed and his symptoms improved. An echocardiogram was performed to assess current heart function; which revealed significant left ventricular systolic dysfunction with an ejection fraction of 15%. His medication regimen was adjusted on yesterday, Imdur and Hydralazine were started. His condition is stable. He has not experienced any significant overnight events. After speaking with Cardiology this morning, we agree that the patient is appropriate for discharge. He is to follow-up with Dr. Scanlon in 2 weeks. Diagnosis - Discharge Diagnosis (1) Chronic anticoagulation Status: Chronic (2) Congestive heart failure Status: Acute (3) Essential hypertension Status: Chronic (4) LVH (left ventricular hypertrophy) Status: Chronic (5) Paroxysmal atrial fibrillation Status: Acute (6) Renal function impairment Status: Acute Specialty Discharge - Follow Up or Referrals Follow up with: Gary Scanlon MD [Primary Care Provider] - 07/02/16 8:00 am Discharge Plan - Discharge Data Disposition: Disch To Home/Self Care - Discharge Medications New Albuterol Inhaler [Proventil Inhaler] 2 puff INH Q6H PRN #1 inhaler PRN Reason: Shortness Of Breath/Wheezing Isosorbide Mononitrate [Imdur] 30 mg PO DAILY #30 tablet hydrALAZINE TAB [Apresoline Tab] 10 mg PO TID #90 tablet methylPREDNISolone DOSEPAK [Medrol Dosepak] 4 mg PO DIRECTED #1 pack Continue amLODIPine [Norvasc] 10 mg PO QAM Furosemide Tab [Lasix Tab] 40 mg PO DAILY Colchicine 0.6 mg PO QAM Warfarin [Coumadin] 3 mg PO MOWEFR Potassium Chloride [Klor-Con M20] 20 meq PO BID Allopurinol [Zyloprim] 300 mg PO QAM Hydrocodone/Acetaminophen [Hydrocodon-Acetaminoph 7.5-325] 1 tablet PO TID PRN PRN Reason: Pain Carvedilol [Coreg] 25 mg PO BID Loratadine Tab [Claritin Tab] 10 mg PO DAILY Warfarin [Coumadin] 1.5 mg PO TUTHSA - Follow Up or Referral Follow Up: Gary Scanlon MD [Primary Care Provider] - 07/02/16 8:00 am - Forms/Instructions Instructions: Heart Failure (GEN), Low Sodium Diet (GEN) Exam - Constitutional Vitals: Period Temp Pulse Resp BP Sys/Garcia Pulse Ox Last 24 Hr 97.3 F-99 F 72-87 14-20 91-134/67-76 96-100 General appearance: normal weight, no acute distress - Head Head exam: Present: normal inspection, normocephalic - Eye Eye exam: Present: EOMI. Absent: conjunctival injection, nystagmus, periorbital swelling, scleral icterus Pupils: Present: LORETTA, normal accommodation - ENT ENT exam: Present: normal exam - Neck Neck exam: Present: normal inspection - Respiratory Respiratory exam: Present: clear to auscultation bilaterally. Absent: accessory muscle use, chest wall tenderness, decreased breath sounds, prolonged expiratory phase, rales, rhonchi, stridor, wheezes - Cardiovascular Cardiovascular exam: Present: regular rate and rhythm. Absent: carotid bruit, diastolic murmur, gallop, JVD, rubs, systolic murmur - GI/Abdominal GI/Abdominal exam: Present: normal bowel sounds, soft. Absent: distended, firm , tenderness - Extremities Exam Extremities exam: Absent: normal inspection, full ROM - Back Exam Back exam: Present: normal inspection - Neurological Exam Neurological exam: Present: alert, oriented X3, CN II-XII intact - Psychiatric Psychiatric exam: Present: normal affect, normal mood - Skin Skin exam: Present: normal color, warm, dry Discharge Results Labs on day of discharge: Labs from last 24 hours 06/17/16 06/17/16 06/17/16 03:19 03:19 03:19 WBC RBC Hgb Hct MCV MCH MCHC RDW Plt Count MPV Neut % (Auto) Lymph % (Auto) [place] % (Auto) Eos % (Auto) Baso % (Auto) Neut # (Auto) Lymph # (Auto) [place] # (Auto) Eos # (Auto) Baso # (Auto) Total Counted Immature Gran % Nucleated RBC % Immature Gran # Segmented Neutrophils Lymphocytes Nucleated RBCs # Platelet Estimate Hypochromasia Target Cells INR 2.4 PT Patient/Control Mix 27.4 Sodium 139 138 Potassium 4.6 4.6 Chloride 106 105 Carbon Dioxide 22 22 Anion Gap 15.6 H 15.6 H BUN 40 H 40 H D Creatinine 2.00 H 2.00 H GFR Calculation 39 39 BUN/Creatinine Ratio 20.00 20.00 Glucose 159 H 159 H Calculated Osmolality 289.5 287.7 Calcium 8.9 9.0 Phosphorus 3.1 Magnesium 2.8 H Total Bilirubin 0.60 AST 14 ALT 27 Alkaline Phosphatase 59 Total Protein 6.2 L Albumin 3.3 L Globulin 2.9 Albumin/Globulin Ratio 1.1 06/17/16 03:19 WBC 11.6 D RBC 3.10 L Hgb 10.1 L Hct 30.3 L MCV 97.7 MCH 33 MCHC 33.3 RDW 15.6 Plt Count 189 MPV 13.2 H Neut % (Auto) 91.1 H Lymph % (Auto) 6.7 L [place] % (Auto) 1.5 L Eos % (Auto) 0.0 Baso % (Auto) 0.1 Neut # (Auto) 10.6 H Lymph # (Auto) 0.8 L [place] # (Auto) 0.2 Eos # (Auto) 0.0 Baso # (Auto) 0.0 Total Counted 100 Immature Gran % 0.6 Nucleated RBC % 0.3 Immature Gran # 0.07 Segmented Neutrophils 95 H Lymphocytes 5 L Nucleated RBCs # 0.03 Platelet Estimate Adequate Hypochromasia Slight Target Cells Slight INR PT Patient/Control Mix Sodium Potassium Chloride Carbon Dioxide Anion Gap BUN Creatinine GFR Calculation BUN/Creatinine Ratio Glucose Calculated Osmolality Calcium Phosphorus Magnesium Total Bilirubin AST ALT Alkaline Phosphatase Total Protein Albumin Globulin Albumin/Globulin Ratio DS: Provider Date of admission: 06/15/16 10:41 Primary care physician: Gary Scanlon MD Attending physician on admission: Erika Da Silva MD Consults: 06/15/16 10:44 Consult to Physician [CONS] Routine Comment: Consulting Provider: Gary Scanlon When should Consulting Provider be notified: Now 06/15/16 16:16 Consult to Pharmacy [CONS] Routine Reason for Pharmacy Consult: Adjust Meds Renal Funct 06/15/16 17:59 Consult to Cardiac Rehabilitation [CONS] Routine Reason for Cardiac Rehabilitation: Risk Factor Modification Discharging clinician: Hugh Davila CNP <Erika Da Silva - Last Filed: 06/17/16 09:54> Hospital Course - Hospital Course Hospital Course: I evaluated this patient and completed an independent history and physical examination. I coordinated care with BOSTON Martinez. I agree with the documentation that she provides below. The patient was seen and examined by cardiology. Medications were adjusted. The patient was aggressively diuresed with IV Lasix. His ejection fraction is noted to be 15%. He is no longer short of breath and his chest x-ray is much improved. His symptoms have resolved and he is being discharged home. He is instructed to follow-up with cardiology as an outpatient in [address] Scanlon. INR is therapeutic and Coumadin is continued. A steroid taper was given due to his history of COPD with acute exacerbation in addition to congestive heart failure acute on chronic left-sided systolic with acute exacerbation. The patient's renal function worsened during the course of the hospitalization with increasing creatinine with diuretics. Unfortunately this was necessary to adequately diurese him and improve his respiratory distress related to pulmonary edema and congestive heart failure. - Time spent with patient Time with patient DS: Greater than 30 minutes (Total discharge time for this patient, including [id number] time, clinical documentation, medication reconciliation, and discharge planning was 41 minutes.) Diagnosis - Discharge Diagnosis (1) VILMA (acute kidney injury) Status: Acute (2) Congestive heart failure Status: Chronic (3) Essential hypertension Status: Chronic (4) LVH (left ventricular hypertrophy) Status: Chronic (5) Chronic anticoagulation Status: Chronic (6) NICM (nonischemic cardiomyopathy) Status: Chronic (7) Paroxysmal atrial fibrillation Status: Chronic Discharge Plan - Discharge Data Condition at Discharge: Stable Discharge Diet: heart healthy Activity: resume usual activities as tolerated Hygiene: no restrictions Weight Bearing at Discharge: full weight bearing Driving: no restrictions Contact your physician if you experience:: fever over 101, Nausea/Vomiting, Shortness of breath, pain uncontrolled by pain medications DS: Provider Expected date of discharge: 06/17/16
[2016-06-17] MEDS: methylPREDNISolone SOD SUC 125 MG/2 ML VIAL IV SCH (08:51)
[2016-06-17] MEDS: FUROSEMIDE 40 MG/4 ML VIAL IV SCH (08:51)
--- NOTE | 2016-06-17 09:04 | XRay Report ---
Portable chest. Indication: COPD. Comparison: June 16, 2016. The heart is normal in size. The pulmonary vasculature is mildly prominent. The left lung is clear. Patchy infiltrate has developed in the right lung base. No pneumothorax or pleural effusion. Stable osseous structures. Orthopedic hardware in the right humerus. Impression: Development of mild infiltrate in the right lung base. Venous congestion, stable. PROCEDURE INTERPRETED AT [facility] DEPARTMENT OF RADIOLOGY Final Report Signed by: Dr. Leida Leach
== END 2016-06-17 12:20 | disposition home or self-care (01) | DRG 291 ==
LOC: EDBD → EDUNIT# → N.ED 08:30 → N.EDINP 10:41 → N.TELES 12:08
PROVIDERS: ADMIT Family Medicine; ATTEND Family Medicine

== ENCOUNTER 2016-08-13 17:21 | Inpatient (IN) ==
[2016-08-13] MEDS ORDERED: methylPREDNISolone SOD SUC 125 MG/2 ML VIAL IV ONE (17:54)
[2016-08-13] MEDS ORDERED: ALBUTEROL 2.5 MG/3 ML NEB RESP TX STA (17:54)
--- NOTE | 2016-08-13 17:55 | Emergency Department Note ---
Eduar Grier Manpreet, am scribing for, and in the presence of, Hernan Turner MD 17:51. Johnny Grier Robert M, MD, personally performed the services described in this documentation, ascribed by Scotty Witt in my presence, and it is both accurate and complete [id number] . 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 Pt denies having CP and tobacco use. Pt had an inhaler but he states it did not work. No other pains/complaints reported to ED. Onset (ago): hour(s) Consistency: constant Severity: mild, moderate Severity scale (1-10): 4 Allergies/Adverse Reactions: Allergies Allergy/AdvReac Type Severity Reaction Status Date / Time No Known Allergies Allergy Verified 08/03/16 06:08 Home Medications: Home Medications Medication Instructions Recorded Confirmed Type Allopurinol [Zyloprim] 300 mg PO QAM 06/03/16 08/13/16 History Furosemide Tab [Lasix Tab] 40 mg PO DAILY 06/03/16 08/13/16 History Warfarin [Coumadin] 3 mg PO DAILY 06/03/16 08/13/16 History Loratadine Tab [Claritin Tab] 10 mg PO DAILY 06/15/16 08/13/16 History Albuterol Inhaler [Proventil 2 puff INH Q6H PRN #1 inhaler 06/17/16 08/13/16 Rx Inhaler] hydrALAZINE TAB [Apresoline Tab] 10 mg PO TID #90 tablet 06/17/16 08/13/16 Rx Isosorbide Mononitrate [Isosorbide 30 mg PO DAILY 07/14/16 08/13/16 History Mononitrate ER] Potassium Chloride [Klor-Con M20] 20 meq PO BID 07/14/16 08/13/16 History Colchicine [Colcrys] 0.6 mg PO DAILY 07/16/16 08/13/16 History Ibuprofen Tab [Motrin Tab] 600 mg PO QID #30 tablet 08/03/16 08/13/16 Rx Methocarbamol Tab [Robaxin Tab] 500 mg PO QID PRN #20 tablet 08/03/16 08/13/16 Rx Review of System - Review of System 12 point system: reviewed and no additional remarkable complaints except as stated - Review of System Constitutional: Absent: chills, diaphoresis, fever Respiratory: Present: respiratory distress, wheezing. Absent: cough Cardiovascular: Absent: chest pain, dyspnea on exertion Gastrointestinal: Absent: abdominal pain, nausea, vomiting Musculoskeletal: Absent: back pain Neurological: Absent: headache, weakness Medical,Surgical,& Family Hx - Medical History Cardio: History of: Cardiac Dysrhythmia (AF), CHF, Hypertension, Cardiovascular Problems (: states has "heart problems and heart doctor but doenst know why" DR PEARSON) No history of: Congenital Heart Disease, [place], Pacemaker, PVD Neurology: No history of: Seizures, TIA HEENT: History of: Eye Problem (GLASSES) Endocrine: No history of: Diabetes Mellitus (IDDM), Diabetes Mellitus (NIDDM) Rheumatology: History of;: Gout Respiratory: History of: COPD, Respiratory Problems (SOB) Renal: History of: Renal Problems (Chronic renal insufficiency) Gastrointestinal: History of: GERD, GI Problems (OCCASIONAL CONSTIPATION) Musculoskeletal: History of: Musculoskeletal Problems (Arthritis) Hematology: No history of: Anemia, Bleeding Problems, Clotting Problems, Hematologic Cancer Other: No history of: Cancer - Surgical History Cardiac Surgeries: Sugical HX of: Cardiac Catheterization (1998- patent coronaries, EF 25-30%) Patient Denies: Cardiac Surgery, Carotid Endarterectomy, Internal Defibrillator HEENT Surgeries: Patient denies: Carotid Endarterectomy Orthopedic Surgeries: Surgical HX of;: Implanted Devices (PINS LEFT SHOULDER), Orthopedic Surgery (LEFT SHOULDER) - Family History Family History: Reports;: Family Diabetes (brother mother), Family Heart Disease , Family Hypertension, Family Stroke - Social History Smoking Status: Never smoker Frequency of Alcohol Use: None Type of Drug Use: None Exam Vital Signs: Vital Signs Temperature 97.3 F L 08/13/16 18:20 Pulse Rate 109 H 08/13/16 18:20 Respiratory Rate 08/13/16 18:20 Blood Pressure 132/65 08/13/16 18:20 O2 Sat by Pulse Oximetry 99 06/01/17 18:11 - General General appearance: alert, in no apparent distress - Head Head exam: Present: atraumatic, normocephalic, normal inspection - Eye Eye exam: Present: normal appearance, PERRL, EOMI - ENT ENT exam: Present: normal exam, normal oropharynx, mucous membranes moist, TM's normal bilaterally - Neck Neck exam: Present: normal inspection, full ROM, trachea midline. Absent: tenderness, thyromegaly - Chest Chest inspection: Present: normal inspection, symmetric chest wall rise - Respiratory Respiratory exam: Present: respiratory distress, wheezes - Cardiovascular Cardiovascular exam: Present: regular rate, normal rhythm, normal heart sounds - Abdominal Exam Abdominal exam: Present: soft, normal bowel sounds. Absent: distention, tenderness - Extremities Exam Extremities exam: Present: normal inspection - Back Exam Back exam: Present: normal inspection, full ROM. Absent: tenderness - Neurological Exam Neurological exam: Present: alert, oriented X3, CN II-XII intact, reflexes normal - Psychiatric Psychiatric exam: Present: normal affect, normal mood - Skin Skin exam: Present: warm, dry, intact, normal color. Absent: pallor Course - Reevaluation(s) Reevaluation #1: The patient has improved. He does seem to have more of a CHF/pulmonary edema component than asthma. I will admit him to the hospitalist service. Time: 20:00 - Consultations Consultation #1: Dr. Tony Hunt will admit the patient. Time: 20:00 Results - Labs CBC & BMP: 08/13/16 18:07 08/13/16 18:07 Disposition Clinical Impression: Congestive heart failure, Essential hypertension, LVH (left ventricular hypertrophy), NICM (nonischemic cardiomyopathy), Chronic anticoagulation, Renal function impairment Case discussed with: patient, patient's family Disposition: Still a Patient Condition: Stable Time of Disposition: 20:04
[2016-08-13] MEDS ORDERED: methylPREDNISolone SOD SUC 125 MG/2 ML VIAL ONE (18:03)
--- NOTE | 2016-08-13 18:18 | XRay Report ---
XR chest 1V portable Indication: Chest pain/SOB Comparison: Chest x-ray dated July 14, 2016 Technique: Frontal views of the chest. Findings: Mild cardiomegaly. There is nonspecific prominence of lung markings suspicious for interstitial pulmonary edema. Chronic/fibrotic change and interstitial pneumonia may have similar appearance. More hazy opacification within the bilateral infrahilar regions suspicious for consolidating pulmonary edema or pneumonia. Constellation of findings most consistent with pulmonary edema/CHF. Visualized osseous and surrounding soft tissue structures appear grossly unchanged. Metallic foreign body again projects over the left axillary region. IMPRESSION: As above. PROCEDURE INTERPRETED AT [facility] DEPARTMENT OF RADIOLOGY Final Report Signed by: Dr Demetrius Mackay
[2016-08-13 18:19] LABS: Basophils # 0.1 10*3/uL (0.0-0.2); Basophils % 0.5 % (0.0-0.8); Eosinophils # 0.4 10*3/uL (0.0-0.87); Eosinophils % 2.2 % (0.00-10.9); Hematocrit 31.8 VOL% (42.0-52.0); Hemoglobin 10.6 GM/DL (14.0-18.0); Immature Granulocytes % 0.5 %; Immature Granulocytes Absolute 0.09 #; Lymphocytes # 1.8 10*3/uL (1.4-4.0); Lymphocytes % 9.6 % (21.2-54.2); Mean Corpuscular HGB Conc 33.3 GM/DL (32-36); Mean Corpuscular Hemoglobin 33 PG (27-34); Mean Corpuscular Volume 98.5 FL (87-102); Mean Platelet Volume 11.7 FL (9.6-12.0); Monocytes # 1.3 10*3/uL (0.11-0.8); Neutrophils # 14.8 10*3/uL (1.4-7.4); Neutrophils % 80.2 % (38.7-73.9); Platelet Count 287 T/CUMM (130-400); Red Blood Count 3.23 MC/CUMM (3.8-5.5); Red Cell Distribution Width 16.7 % (9.3-17.3); White Blood Count 18.5 T/CUMM (4-12)
[2016-08-13] MEDS ORDERED: FUROSEMIDE 40 MG/4 ML VIAL IV STA (18:50)
[2016-08-13] MEDS ORDERED: FUROSEMIDE 40 MG/4 ML VIAL ONE (19:07)
[2016-08-13 19:17] LABS: Blood Urea Nitrogen 19 MG/DL (7-18); Calcium 8.7 MG/DL (8.5-10.1); Glucose 105 MG/DL (74-106); Magnesium 2.2 MG/DL (1.8-2.4); Osmolality,Calculated 280.4 MOS/KG (273-304); Potassium 4.3 MMOL/L (3.5-5.1); Sodium 140 MMOL/L (136-145); Troponin I Only < 0.015 NG/ML (0.00-0.045)
[2016-08-13] MEDS ORDERED: METHOCARBAMOL 500 MG TABLET PO PRN (21:15)
--- NOTE | 2016-08-13 21:15 | Hospitalist History & Physical ---
Assessment and Plan (1) Acute on chronic systolic CHF (congestive heart failure) Status: Acute Current Visit: Yes (2) Chronic kidney disease, stage III (moderate) Status: Acute Current Visit: Yes (3) Chronic anticoagulation Status: Acute Current Visit: Yes (4) Essential hypertension Status: Chronic Current Visit: Yes (5) Paroxysmal atrial fibrillation Status: Chronic Assessment and plan: Plan: Start IV Lasix, daily weights, ins and outs, continue remainder of his CHF medical therapy. Mildly elevated white blood cell count, nonproductive cough, may consider antibiotics if repeat CBC shows persistent WBC elevation Hold NSAIDs Daily PT/INR Duo nebs, supplemental oxygen, supportive care Current Visit: No History of Present Illness Chief complaint: Worsening shortness of breath History of present illness: Mr. Terry is a 75 year old male with chronic systolic CHF, EF 15% on echo in June 2016, here with worsening shortness of breath since earlier today. Worse with exertion. He denies chest pain, nausea vomiting or diarrhea. He has a dry cough, no fever. He reports increased swelling of his lower extremities however at the bedside they appear fairly unremarkable. He states he feels "a little bloated," but has had a normal bowel movement earlier today. He states he is compliant with his medications including diuretics. He denies dysuria. He states he is having to use his walker a little bit more due to weakness and shortness of breath. Home Medications Medication Instructions Recorded Confirmed Type Allopurinol [Zyloprim] 300 mg PO QAM 06/03/16 08/13/16 History Furosemide Tab [Lasix Tab] 40 mg PO DAILY 06/03/16 08/13/16 History Warfarin [Coumadin] 3 mg PO DAILY 06/03/16 08/13/16 History Loratadine Tab [Claritin Tab] 10 mg PO DAILY 06/15/16 08/13/16 History Albuterol Inhaler [Proventil 2 puff INH Q6H PRN #1 inhaler 06/17/16 08/13/16 Rx Inhaler] hydrALAZINE TAB [Apresoline Tab] 10 mg PO TID #90 tablet 06/17/16 08/13/16 Rx Isosorbide Mononitrate [Isosorbide 30 mg PO DAILY 07/14/16 08/13/16 History Mononitrate ER] Potassium Chloride [Klor-Con M20] 20 meq PO BID 07/14/16 08/13/16 History Colchicine [Colcrys] 0.6 mg PO DAILY 07/16/16 08/13/16 History Ibuprofen Tab [Motrin Tab] 600 mg PO QID #30 tablet 08/03/16 08/13/16 Rx Methocarbamol Tab [Robaxin Tab] 500 mg PO QID PRN #20 tablet 08/03/16 08/13/16 Rx Allergies Allergy/AdvReac Type Severity Reaction Status Date / Time No Known Allergies Allergy Verified 08/03/16 06:08 Medical,Surgical,& Family Hx - Medical History Cardio: History of: Cardiac Dysrhythmia (AF), CHF, Hypertension, Cardiovascular Problems (: states has "heart problems and heart doctor but doenst know why" DR PEARSON) No history of: Congenital Heart Disease, [place], Pacemaker, PVD Neurology: No history of: Seizures, TIA HEENT: History of: Eye Problem (GLASSES) Endocrine: No history of: Diabetes Mellitus (IDDM), Diabetes Mellitus (NIDDM) Rheumatology: History of;: Gout Respiratory: History of: COPD, Respiratory Problems (SOB) Renal: History of: Renal Problems (Chronic renal insufficiency) Gastrointestinal: History of: GERD, GI Problems (OCCASIONAL CONSTIPATION) Musculoskeletal: History of: Musculoskeletal Problems (Arthritis) Hematology: No history of: Anemia, Bleeding Problems, Clotting Problems, Hematologic Cancer Other: No history of: Cancer - Surgical History Cardiac Surgeries: Sugical HX of: Cardiac Catheterization (1998- patent coronaries, EF 25-30%) Patient Denies: Cardiac Surgery, Carotid Endarterectomy, Internal Defibrillator HEENT Surgeries: Patient denies: Carotid Endarterectomy Orthopedic Surgeries: Surgical HX of;: Implanted Devices (PINS LEFT SHOULDER), Orthopedic Surgery (LEFT SHOULDER) - Family History Family History: Reports;: Family Diabetes (brother mother), Family Heart Disease , Family Hypertension, Family Stroke - Social History Smoking Status: Never smoker Frequency of Alcohol Use: None Type of Drug Use: None Marital Status: Unknown Functional capacity: uses cane/walker Review of systems: A 12 point review of systems is negative except as specified in the HPI Exam - Constitutional Vitals: Period Temp Pulse Resp BP Sys/Garcia Pulse Ox Last 24 Hr 97.3 F-97.3 F 108-109 22-34 132-132/65-65 83-99 Exam: EXAM: CONSTITUTIONAL: non toxic, NAD HEENT: NC, AT, OP benign, [place], EOMI CV: Tachycardic, regular no m/g/r, mild JVD RESP: Bibasilar rales, no wheezes GI: abd soft, protuberant, NT, ND, +bowel sounds INTEGUMENTARY: no lesions or rash EXTREMITIES: 1+ pitting edema bilateral lower extremities NEURO: no focal deficits PSYCH: unremarkable, A/O x3 Results - Labs CBC & BMP: 08/13/16 18:07 08/13/16 18:07 Lab Results: I have reviewed the past 24 hour labs - EKG EKG shows: tachycardia, sinus rhythm - Diagnostic Findings Procedure: Chest x-ray: image reviewed by me, report reviewed by me
[2016-08-13] MEDS ORDERED: MORPHINE 2 MG/1 ML SYRINGE IV PRN (21:16)
[2016-08-13] MEDS ORDERED: BISACODYL 5 MG TABLET PO PRN (21:16)
[2016-08-13] MEDS ORDERED: ONDANSETRON 4 MG/2 ML VIAL IV PRN (21:16)
[2016-08-13] MEDS ORDERED: ACETAMINOPHEN 325 MG TABLET PO PRN (21:16)
[2016-08-13] MEDS ORDERED: ALBUTEROL/IPRATROPIUM 3 ML NEB RESP TX PRN (21:19)
[2016-08-14 04:13] LABS: Basophils % 0.2 % (0.0-0.8); Hematocrit 29.2 VOL% (42.0-52.0); Hemoglobin 9.8 GM/DL (14.0-18.0); Immature Granulocytes % 0.2 %; Immature Granulocytes Absolute 0.01 #; Lymphocytes # 0.5 10*3/uL (1.4-4.0); Lymphocytes % 12.8 % (21.2-54.2); Mean Corpuscular HGB Conc 33.6 GM/DL (32-36); Mean Corpuscular Hemoglobin 32 PG (27-34); Mean Corpuscular Volume 95.7 FL (87-102); Monocytes # 0.1 10*3/uL (0.11-0.8); Monocytes % 1.2 % (1.7-12.7); Neutrophils # 3.6 10*3/uL (1.4-7.4); Neutrophils % 85.6 % (38.7-73.9); Platelet Count 268 T/CUMM (130-400); Red Blood Count 3.05 MC/CUMM (3.8-5.5); Red Cell Distribution Width 16.6 % (9.3-17.3); White Blood Count 4.2 T/CUMM (4-12)
[2016-08-14 04:27] LABS: INR 2.7
[2016-08-14 04:28] LABS: PT Patient Result 30.5 SECS
[2016-08-14 04:49] LABS: Magnesium 2.2 MG/DL (1.8-2.4); Osmolality,Calculated 283.5 MOS/KG (273-304); Potassium 4.1 MMOL/L (3.5-5.1)
[2016-08-14 04:53] LABS: Apearance,Urine CLEAR (Clear); Bilirubin,Urine Negative (Negative); Blood, Urine Negative (Negative); Glucose,Urine (UA) Negative (Negative); Ketones,Urine Negative (Negative); Nitrite,Urine Negative (Negative); Protein,Urine 30 MG/DL; RBC,Urine <1 /HPF (0-4); Urine Color Straw (Yellow); Urine Specific Gravity 1.005 (1.001-1.035); Urine Urobilinogen < 2.0 EU/DL (0.2-1.0); WBC,Urine 1 /HPF (0-6)
[2016-08-14] MEDS: ISOSORBIDE MONONITRATE 30 MG TABLET PO SCH (08:52)
[2016-08-14] MEDS: CARVEDILOL 25 MG TABLET PO SCH ×2 (08:52→23:53)
[2016-08-14] MEDS: LORATADINE 10 MG TABLET PO SCH (08:52)
[2016-08-14] MEDS: ALLOPURINOL 300 MG TABLET PO SCH (08:52)
[2016-08-14] MEDS: FUROSEMIDE 40 MG/4 ML VIAL IV SCH ×2 (08:52→15:25)
[2016-08-14] MEDS: POTASSIUM CHLORIDE 20 MEQ TABLET PO SCH ×2 (08:52→23:52)
[2016-08-14] MEDS: PANTOPRAZOLE 40 MG TABLET PO SCH (08:52)
[2016-08-14] MEDS: hydrALAZINE 10 MG TABLET PO SCH ×3 (08:52→23:53)
[2016-08-14] MEDS: COLCHICINE 0.6 MG TABLET PO SCH (08:52)
--- NOTE | 2016-08-14 09:27 | Hospitalist Progress Note ---
Assessment and Plan - Time spent with patient Time spent with patient: Greater than 30 minutes (1) Essential hypertension Status: Chronic Current Visit: Yes (2) LVH (left ventricular hypertrophy) Status: Chronic Current Visit: Yes (3) Chronic anticoagulation Status: Chronic Current Visit: Yes (4) Renal function impairment Status: Acute Current Visit: Yes (5) Acute on chronic systolic CHF (congestive heart failure) Status: Acute Current Visit: Yes (6) Chronic kidney disease, stage III (moderate) Status: Acute Assessment and plan: He appears to have responded well to Lasix so far in terms of the shortness of breath. I wonder if urine output recorded accurately, only 200 cc since admission. Continue IV Lasix, accurately input and output recording. Monitor renal function and electrolytes while on Lasix. Supplemental oxygen to keep saturation above 92%. Continue his other CHF regimen, I doubt any need for cardiology consult. He may likely be able to go home tomorrow. Continue warfarin and daily INR check. Current Visit: Yes Hospitalist: Subjective Interval history: 75-year-old man with known CHF and ejection fraction of 15%, admitted overnight for gradually worsening shortness of breath. Being managed for exacerbation. Started on IV Lasix, with good response. Respiratory status significantly improved. Lower extremity edema is reduced. Renal function has remained stable Denies any chest pain, palpitation. No fever Exam - Constitutional Vitals: Period Temp Pulse Resp BP Sys/Garcia Pulse Ox Last 24 Hr 97.3 F-98.1 F 89-109 18-34 120-138/65-80 83-99 General appearance: under weight - Head Head exam: Present: normal inspection, normocephalic - Eye Eye exam: Present: EOMI. Absent: periorbital swelling, scleral icterus Pupils: Present: LORETTA - ENT ENT exam: Present: normal external ear exam - Respiratory Respiratory exam: Present: clear to auscultation bilaterally. Absent: rhonchi, stridor, wheezes - Cardiovascular Cardiovascular exam: Present: regular rate and rhythm - GI/Abdominal GI/Abdominal exam: Present: normal bowel sounds. Absent: ascites, distended - Extremities Exam Extremities exam: Present: full ROM. Absent: calf tenderness, edema - Neurological Exam Neurological exam: Present: alert, oriented X3 - Skin Skin exam: Present: normal color, warm, dry. Absent: erythema Results - Labs CBC & BMP: 08/14/16 03:45 08/14/16 03:45 Lab Results: I have reviewed the past 24 hour labs - Diagnostic Findings Procedure: KUB x-ray: report reviewed by me Quality Measures - VTE Contraindication to Pharmacological VTE Prophylaxis: Already on Theraputic Agent , No Prophylaxis Needed
[2016-08-14] MEDS ORDERED: WARFARIN 3 MG TABLET PO SCH (18:00)
--- NOTE | 2016-08-15 07:19 | EKG Report ---
Stationary ECG Study [facility] ER Test Date: 08/13/2016 5:42:06 PM Pat Name: Aki FERREIRA Department: Room: 229 Gender: M [employer]crete Form [employer]ter: MARIAELENA Brown : 1940 Requested by: Hernan Turner Order Number: [id number] Reading MD: SHAYNE STEELE Intervals [place] Rate: 111 P: 77 [place]: 172 QRS: 59 QRSD: 96 T: 91 QT: 311 QTc: 377 Interpretive Statements SINUS TACHYCARDIA ST DEVIATION AND MODERATE T-WAVE ABNORMALITY, CONSIDER LATERAL ISCHEMIA Electronically Signed On 08-17-16 13:45:20 CDT by SHAYNE STEELE [email or web address]
[2016-08-15 08:32] LABS: INR 2.4
[2016-08-15 08:35] LABS: PT Patient Result 27.2 SECS
[2016-08-15] MEDS: POTASSIUM CHLORIDE 20 MEQ TABLET PO SCH (09:08)
[2016-08-15] MEDS: PANTOPRAZOLE 40 MG TABLET PO SCH (09:08)
[2016-08-15] MEDS: COLCHICINE 0.6 MG TABLET PO SCH (09:08)
[2016-08-15] MEDS: ALLOPURINOL 300 MG TABLET PO SCH (09:08)
[2016-08-15] MEDS: CARVEDILOL 25 MG TABLET PO SCH (09:09)
[2016-08-15] MEDS: LORATADINE 10 MG TABLET PO SCH (09:09)
[2016-08-15] MEDS: hydrALAZINE 10 MG TABLET PO SCH (09:09)
[2016-08-15] MEDS: ISOSORBIDE MONONITRATE 30 MG TABLET PO SCH (09:09)
[2016-08-15] MEDS: FUROSEMIDE 40 MG/4 ML VIAL IV SCH (09:10)
--- NOTE | 2016-08-15 11:22 | Discharge Summary ---
Hospital Course - Hospital Course Hospital Course: 75 year old male with chronic systolic CHF and cardiomyopathy with EF 15% on echo in June 2016, who presented this time with worsening shortness of breath which started on the day of admission. Worse with exertion. He denied any chest pain, nausea vomiting or diarrhea. He had no fever. He reported increased swelling of his lower extremities however at the bedside they appear fairly unremarkable. He was admitted to the floor for management of acute decompensated CHF, started on IV Lasix while monitoring the electrolyte and renal function. Beta blockers were added to his CHF regimen His symptoms improved rapidly, shortness of breath resolved and no lower extremity swelling was noted. On the day of discharge, he was back to his baseline, in no obvious respiratory distress. Stable enough for discharge to outpatient follow-up with his primary care physician and cardiology. We discussed compliance with his medication clinic appointments and he verbalized understanding. - Time spent with patient Time with patient DS: Greater than 30 minutes (Time to continue coordination of posthospital care and documentation.) Diagnosis - Discharge Diagnosis (1) Essential hypertension Status: Chronic (2) LVH (left ventricular hypertrophy) Status: Chronic (3) Chronic anticoagulation Status: Chronic (4) Renal function impairment Status: Acute (5) Acute on chronic systolic CHF (congestive heart failure) Status: Acute (6) Chronic kidney disease, stage III (moderate) Status: Acute Discharge Plan - Discharge Data Disposition: Disch To Home/Self Care Condition at Discharge: Stable Discharge Diet: heart healthy, low salt diet Activity: resume usual activities as tolerated Hygiene: no restrictions - Discharge Medications New Carvedilol [Coreg] 12.5 mg PO BID #30 tablet Pantoprazole Tab [Protonix Tab] 40 mg PO DAILY #30 tablet Continue Furosemide Tab [Lasix Tab] 40 mg PO DAILY Warfarin [Coumadin] 3 mg PO DAILY Allopurinol [Zyloprim] 300 mg PO QAM Albuterol Inhaler [Proventil Inhaler] 2 puff INH Q6H PRN #1 inhaler PRN Reason: Shortness Of Breath/Wheezing hydrALAZINE TAB [Apresoline Tab] 10 mg PO TID #90 tablet Isosorbide Mononitrate [Isosorbide Mononitrate ER] 30 mg PO DAILY Potassium Chloride [Klor-Con M20] 20 meq PO BID Colchicine [Colcrys] 0.6 mg PO DAILY Methocarbamol Tab [Robaxin Tab] 500 mg PO QID PRN #20 tablet PRN Reason: low back pain/muscle strain Loratadine Tab [Claritin Tab] 10 mg PO DAILY Discontinued Ibuprofen Tab [Motrin Tab] 600 mg PO QID #30 tablet - Follow Up or Referral - Forms/Instructions Instructions: Heart Failure (DC) Additional Discharge Instructions: PCP in 1-2 weeks. Return to his [facility] [employer] in 1 week Exam - Constitutional Vitals: Period Temp Pulse Resp BP Sys/Garcia Pulse Ox Last 24 Hr 97.9 F-98.3 F 79-96 18-20 107-132/60-78 98-98 Discharge Results Procedures and tests throughout hospitalization: Pending Orders 08/15/16 04:00 XR chest 1V portable IN 48 HOURS 08/16/16 04:00 Prothrombin Time INR IN AM Labs on day of discharge: Labs from last 24 hours 08/15/16 07:47 INR 2.4 PT Patient/Control Mix 27.2 DS: Provider Date of admission: 08/13/16 21:16 Primary care physician: Mamadou Rao Attending physician on admission: Tony Hunt DO Consults: 08/13/16 21:19 Consult to Physical Therapy [CONS] Routine Reason for Physical Therapy: Weakness Discharging clinician: Heri Guerrero MD
[2016-08-15 11:47] VITALS: BP 107/63
--- NOTE | 2016-08-15 13:01 | XRay Report ---
Exam: XR chest 1V portable Indication: Congestive heart failure Shortness of breath Comparison study: 08/13/2016 Findings: Chronic silhouette is mildly enlarged, similar to prior mediastinal contours are within normal limits. There is improved aeration within the lung bases with clearing of patchy interstitial opacity seen previously, likely representing resolving interstitial edema. Lung bases are now predominantly clear. There is no focal consolidation, pneumothorax or pleural effusion identified. Impression: No acute cardiopulmonary process. Similar mild cardiomegaly. Significantly improved aeration within the lung bases with clearing of probable interstitial edema and/or basilar atelectasis. PROCEDURE INTERPRETED AT [facility] DEPARTMENT OF RADIOLOGY Final Report Signed by: Sami Bartlett
== END 2016-08-15 14:00 | disposition home or self-care (01) | DRG 291 ==
LOC: N.ED 17:21 → N.EDINP 21:16 → SUATTDRO 21:16 → N.2E 22:13
PROVIDERS: ADMIT Internal Medicine; ATTEND Internal Medicine

== ENCOUNTER 2018-02-28 07:53 | Inpatient (IN) ==
[2018-02-28] MEDS ORDERED: methylPREDNISolone SOD SUC 125 MG/2 ML VIAL IV STA (08:07)
[2018-02-28] MEDS ORDERED: ALBUTEROL 2.5 MG/3 ML NEB RESP TX STA (08:12)
[2018-02-28 08:34] LABS: ABG Base Excess -2.6 MMOL/L (-2.5-2.5); ABG HCO3 20.3 MMOL/L (20-26); ABG Oxygen Saturation 92.6 % (95-100); ABG PCO2 29.7 MM HG (35-48); ABG PH 7.452 (7.35-7.45); ABG PO2 66.4 MM HG (80-95); ABG TCO2 21.2 MMOL/L (23-27)
[2018-02-28 08:52] LABS: Basophils % 0.7 % (0.0-0.8); Eosinophils # 0.3 10*3/uL (0.0-0.87); Eosinophils % 6.8 % (0.00-10.9); Hematocrit 36.7 VOL% (42.0-52.0); Hemoglobin 12.3 GM/DL (14.0-18.0); Lymphocytes # 1.2 10*3/uL (1.4-4.0); Lymphocytes % 26.3 % (21.2-54.2); Mean Corpuscular HGB Conc 33.5 GM/DL (32-36); Mean Corpuscular Hemoglobin 32 PG (27-34); Mean Corpuscular Volume 93.9 FL (87-102); Mean Platelet Volume 13.2 FL (9.6-12.0); Monocytes # 0.5 10*3/uL (0.11-0.8); Monocytes % 11.9 % (1.7-12.7); Neutrophils # 2.4 10*3/uL (1.4-7.4); Neutrophils % 54.3 % (38.7-73.9); Platelet Count 104 T/CUMM (130-400); Red Blood Count 3.91 MC/CUMM (3.8-5.5); Red Cell Distribution Width 14.4 % (9.3-17.3); White Blood Count 4.4 T/CUMM (4-12)
[2018-02-28 09:24] LABS: Band Neutrophils 1 % (0-10); Eosinophils 8 % (0-10); Hypochromasia 1+; Lymphocytes 17 % (20-55); Platelet Estimate Decreased; Segmented Neutrophils 65 % (50-85); Total Cells Counted 100
[2018-02-28 09:43] LABS: Albumin 3.6 G/DL (3.4-5.0); Bilirubin,Total 0.6 MG/DL (0.2-1.0); Calcium 8.9 MG/DL (8.5-10.1); Osmolality,Calculated 282.5 MOS/KG (273-304); Potassium 4.5 MMOL/L (3.5-5.1); Total Protein 7.9 G/DL (6.4-8.3)
[2018-02-28] MEDS ORDERED: ALBUTEROL 2.5 MG/3 ML NEB RESP TX PRN (10:55)
[2018-02-28] MEDS ORDERED: guaiFENesin/DM ER 600-30 MG TABLET PO PRN (10:55)
[2018-02-28] MEDS ORDERED: ACETAMINOPHEN 325 MG TABLET PO PRN (10:55)
[2018-02-28] MEDS ORDERED: ONDANSETRON 4 MG/2 ML VIAL IV PRN (10:55)
[2018-02-28] MEDS ORDERED: NON-FORMULARY MEDICATION (Albuterol Inhaler 2 PUFF) INH PRN (12:13)
[2018-02-28 14:12] LABS: INR 2.6
[2018-02-28 14:17] LABS: PT Patient Result 27.9 SECS
[2018-02-28] MEDS: WARFARIN 3 MG TABLET PO SCH (18:34)
[2018-02-28] MEDS: methylPREDNISolone SOD SUC 40 MG/1 ML VIAL IV SCH (20:50)
[2018-02-28] MEDS: POTASSIUM CHLORIDE 20 MEQ TABLET PO SCH (20:50)
[2018-03-01 05:00] LABS: Basophils % 0.4 % (0.0-0.8); Hematocrit 34.7 VOL% (42.0-52.0); Hemoglobin 11.7 GM/DL (14.0-18.0); Immature Granulocytes % 0.4 %; Immature Granulocytes Absolute 0.01 #; Lymphocytes # 0.9 10*3/uL (1.4-4.0); Lymphocytes % 31.8 % (21.2-54.2); Mean Corpuscular HGB Conc 33.7 GM/DL (32-36); Mean Corpuscular Hemoglobin 31 PG (27-34); Mean Platelet Volume 14.2 FL (9.6-12.0); Monocytes # 0.2 10*3/uL (0.11-0.8); Monocytes % 5.6 % (1.7-12.7); Neutrophils # 1.7 10*3/uL (1.4-7.4); Neutrophils % 61.8 % (38.7-73.9); Platelet Count 100 T/CUMM (130-400); Red Blood Count 3.73 MC/CUMM (3.8-5.5); Red Cell Distribution Width 14.2 % (9.3-17.3); White Blood Count 2.7 T/CUMM (4-12)
[2018-03-01 05:47] LABS: Osmolality,Calculated 283.8 MOS/KG (273-304); Potassium 4.4 MMOL/L (3.5-5.1); Thyroid Stimulating Hormone 1.03 uIU/ml (0.358-3.74)
[2018-03-01 06:01] LABS: Eosinophils 1 % (0-10); Lymphocytes 34 % (20-55); Platelet Estimate Decreased; Segmented Neutrophils 64 % (50-85); Total Cells Counted 100
[2018-03-01 06:02] LABS: Hypochromasia 1+; Microcytosis 1+; Pappenheimer Bodies Few
[2018-03-01] MEDS: POTASSIUM CHLORIDE 20 MEQ TABLET PO SCH ×2 (08:39→21:21)
[2018-03-01] MEDS: amLODIPine 10 MG TABLET PO SCH (08:39)
[2018-03-01] MEDS: PANTOPRAZOLE 40 MG TABLET PO SCH (08:39)
[2018-03-01] MEDS: methylPREDNISolone SOD SUC 40 MG/1 ML VIAL IV SCH ×2 (08:39→21:22)
[2018-03-01] MEDS: FUROSEMIDE 40 MG TABLET PO SCH (08:39)
[2018-03-01] MEDS ORDERED: INFLUENZA VIRUS VACCINE 0.5 ML SYRINGE IM ONE (12:06)
[2018-03-01] MEDS: WARFARIN 3 MG TABLET PO SCH (18:30)
[2018-03-02 05:32] LABS: Basophils % 0.1 % (0.0-0.8); Hematocrit 32.2 VOL% (42.0-52.0); Hemoglobin 10.6 GM/DL (14.0-18.0); Immature Granulocytes % 0.5 %; Immature Granulocytes Absolute 0.04 #; Lymphocytes # 1.2 10*3/uL (1.4-4.0); Lymphocytes % 14.9 % (21.2-54.2); Mean Corpuscular HGB Conc 32.9 GM/DL (32-36); Mean Corpuscular Hemoglobin 31 PG (27-34); Mean Corpuscular Volume 93.1 FL (87-102); Mean Platelet Volume 14.2 FL (9.6-12.0); Monocytes # 0.1 10*3/uL (0.11-0.8); Monocytes % 1.7 % (1.7-12.7); Neutrophils # 6.4 10*3/uL (1.4-7.4); Neutrophils % 82.8 % (38.7-73.9); Platelet Count 122 T/CUMM (130-400); Red Blood Count 3.46 MC/CUMM (3.8-5.5); White Blood Count 7.8 T/CUMM (4-12)
[2018-03-02 05:35] LABS: INR 2.6
[2018-03-02 05:40] LABS: PT Patient Result 27.9 SECS
[2018-03-02 05:54] LABS: Calcium 9.6 MG/DL (8.5-10.1); Osmolality,Calculated 289.5 MOS/KG (273-304); Potassium 4.8 MMOL/L (3.5-5.1)
[2018-03-02 06:13] LABS: Lymphocytes 15 % (20-55); Segmented Neutrophils 84 % (50-85); Total Cells Counted 100
[2018-03-02 06:14] LABS: Platelet Estimate Decreased; Polychromasia Few
[2018-03-02] MEDS: amLODIPine 10 MG TABLET PO SCH (09:01)
[2018-03-02] MEDS: methylPREDNISolone SOD SUC 40 MG/1 ML VIAL IV SCH ×2 (09:01→20:19)
[2018-03-02] MEDS: POTASSIUM CHLORIDE 20 MEQ TABLET PO SCH ×2 (09:01→20:19)
[2018-03-02] MEDS: FUROSEMIDE 40 MG TABLET PO SCH (09:01)
[2018-03-02] MEDS: PANTOPRAZOLE 40 MG TABLET PO SCH (09:01)
[2018-03-02] MEDS: SODIUM CHLORIDE 0.9% 1,000 ML IV SCH (10:15)
[2018-03-02] MEDS: WARFARIN 3 MG TABLET PO SCH (17:47)
[2018-03-03 05:25] LABS: INR 2.8
[2018-03-03 05:41] LABS: PT Patient Result 30.5 SECS
[2018-03-03] MEDS: SODIUM CHLORIDE 0.9% 1,000 ML IV SCH (06:17)
[2018-03-03] MEDS: PANTOPRAZOLE 40 MG TABLET PO SCH (08:57)
[2018-03-03] MEDS: methylPREDNISolone SOD SUC 40 MG/1 ML VIAL IV SCH ×2 (08:57→21:38)
[2018-03-03] MEDS: FUROSEMIDE 40 MG TABLET PO SCH (08:57)
[2018-03-03] MEDS: amLODIPine 10 MG TABLET PO SCH (08:57)
[2018-03-03] MEDS: POTASSIUM CHLORIDE 20 MEQ TABLET PO SCH (08:57)
[2018-03-03 09:40] LABS: Calcium 8.4 MG/DL (8.5-10.1); Osmolality,Calculated 288.7 MOS/KG (273-304); Potassium 5.4 MMOL/L (3.5-5.1)
[2018-03-03] MEDS ORDERED: SODIUM POLYSTYRENE SULFATE 15 GM/60 ML BOTTLE PO ONE (11:26)
[2018-03-03] MEDS: WARFARIN 3 MG TABLET PO SCH (17:37)
[2018-03-04] MEDS: SODIUM CHLORIDE 0.9% 1,000 ML IV SCH (00:43)
[2018-03-04 05:39] LABS: Calcium 8.4 MG/DL (8.5-10.1); Osmolality,Calculated 288.5 MOS/KG (273-304); Potassium 4.2 MMOL/L (3.5-5.1)
[2018-03-04 07:39] LABS: INR 2.9
[2018-03-04 07:58] VITALS: BP 150/95
[2018-03-04 08:40] LABS: PT Patient Result 31.5 SECS
[2018-03-04] MEDS: methylPREDNISolone SOD SUC 40 MG/1 ML VIAL IV SCH (08:49)
[2018-03-04] MEDS: amLODIPine 10 MG TABLET PO SCH (08:50)
[2018-03-04] MEDS: PANTOPRAZOLE 40 MG TABLET PO SCH (08:51)
[2018-03-04] MEDS: FUROSEMIDE 40 MG TABLET PO SCH (08:51)
== END 2018-03-04 11:40 | disposition home health service (06) | DRG 191 ==
LOC: EDBD → EDUNIT# → N.ED 07:53 → N.EDINP 07:53 → N.3E 10:43
PROVIDERS: ADMIT Internal Medicine; ATTEND Internal Medicine

== ENCOUNTER 2018-04-12 16:51 | Observation (INO) ==
[2018-04-12 17:20] LABS: Basophils % 0.3 % (0.0-0.8); Eosinophils # 0.1 10*3/uL (0.0-0.87); Eosinophils % 0.5 % (0.00-10.9); Hematocrit 37.5 VOL% (42.0-52.0); Immature Granulocytes Absolute 0.11 #; Lymphocytes # 0.8 10*3/uL (1.4-4.0); Lymphocytes % 7.6 % (21.2-54.2); Mean Corpuscular Hemoglobin 31 PG (27-34); Mean Corpuscular Volume 98.2 FL (87-102); Mean Platelet Volume 13.1 FL (9.6-12.0); Monocytes # 0.6 10*3/uL (0.11-0.8); Monocytes % 5.2 % (1.7-12.7); Neutrophils # 9.5 10*3/uL (1.4-7.4); Neutrophils % 85.4 % (38.7-73.9); Platelet Count 90 T/CUMM (130-400); Red Blood Count 3.82 MC/CUMM (3.8-5.5); White Blood Count 11.1 T/CUMM (4-12)
[2018-04-12] MEDS ORDERED: methylPREDNISolone SOD SUC 125 MG/2 ML VIAL IV STA (17:21)
[2018-04-12] MEDS ORDERED: ALBUTEROL NEB SOLN 5 MG/ML 20 ML/BOTTLE RESP TX SCH (17:30)
[2018-04-12 17:36] LABS: Albumin 3.6 G/DL (3.4-5.0); Bilirubin,Total 0.7 MG/DL (0.2-1.0); Calcium 8.8 MG/DL (8.5-10.1); Total Protein 7.7 G/DL (6.4-8.3)
[2018-04-12 17:37] LABS: Potassium 4.3 MMOL/L (3.5-5.1)
[2018-04-12 17:44] LABS: INR 1.7; PT Patient Result 18.1 SECS
[2018-04-12] MEDS ORDERED: FUROSEMIDE 40 MG/4 ML VIAL IV STA (18:05)
[2018-04-12] MEDS ORDERED: MAGNESIUM SULF RIDER 4 GM in PREMIX 1 EACH IV PRN (19:08)
[2018-04-12] MEDS ORDERED: ONDANSETRON 4 MG/2 ML VIAL IV PRN (19:08)
[2018-04-12] MEDS ORDERED: ACETAMINOPHEN 325 MG TABLET PO PRN (19:08)
[2018-04-12] MEDS ORDERED: MAGNESIUM SULF RIDER 2 GM in PREMIX 1 EACH IV PRN (19:08)
[2018-04-12] MEDS ORDERED: ALBUTEROL 2.5 MG/3 ML NEB RESP TX PRN (19:08)
[2018-04-12 19:39] LABS: Platelet Estimate Decreased
[2018-04-12 19:40] LABS: Anisocytosis 1+; Giant Platelets Few
[2018-04-12] MEDS ORDERED: cefTRIAXone 1,000 MG in SYRINGE 1 EACH IV SCH (20:00)
[2018-04-12] MEDS ORDERED: PNEUMOCOCCAL VACCINE (13 VALENT) 0.5 ML SYRINGE IM ONE (21:12)
[2018-04-13] MEDS: ALBUTEROL/IPRATROPIUM 3 ML NEB RESP TX SCH ×3 (00:23→12:00)
[2018-04-13 06:03] LABS: Basophils % 0.2 % (0.0-0.8); Hematocrit 34.7 VOL% (42.0-52.0); Hemoglobin 11.4 GM/DL (14.0-18.0); Immature Granulocytes % 0.6 %; Immature Granulocytes Absolute 0.03 #; Lymphocytes # 0.6 10*3/uL (1.4-4.0); Lymphocytes % 10.7 % (21.2-54.2); Mean Corpuscular HGB Conc 32.9 GM/DL (32-36); Mean Corpuscular Hemoglobin 32 PG (27-34); Mean Corpuscular Volume 95.9 FL (87-102); Mean Platelet Volume 12.6 FL (9.6-12.0); Monocytes # 0.1 10*3/uL (0.11-0.8); Monocytes % 1.6 % (1.7-12.7); Neutrophils # 4.5 10*3/uL (1.4-7.4); Neutrophils % 86.9 % (38.7-73.9); Platelet Count 81 T/CUMM (130-400); Red Blood Count 3.62 MC/CUMM (3.8-5.5); Red Cell Distribution Width 16.6 % (9.3-17.3); White Blood Count 5.1 T/CUMM (4-12)
[2018-04-13 06:10] LABS: INR 1.3; PT Patient Result 14.2 SECS
[2018-04-13 06:27] LABS: Hypochromasia 1+; Lymphocytes 9 % (20-55); Ovalocytes Slight; Platelet Estimate Decreased; Segmented Neutrophils 89 % (50-85); Total Cells Counted 100
[2018-04-13] MEDS: FUROSEMIDE 40 MG/4 ML VIAL IV SCH ×2 (08:54→17:19)
[2018-04-13] MEDS ORDERED: POTASSIUM CHLORIDE 20 MEQ TABLET PO SCH (09:00)
[2018-04-13] MEDS ORDERED: amLODIPine 10 MG TABLET PO SCH (09:00)
[2018-04-13] MEDS ORDERED: PANTOPRAZOLE 40 MG TABLET PO SCH (09:00)
[2018-04-13] MEDS ORDERED: RIVAROXABAN 15 MG TABLET PO SCH (09:00)
[2018-04-13] MEDS ORDERED: AZITHROMYCIN 250 MG TABLET PO SCH (09:00)
[2018-04-13] MEDS ORDERED: predniSONE 20 MG TABLET PO SCH (09:00)
[2018-04-13] MEDS ORDERED: ASPIRIN EC 81 MG TABLET PO SCH (10:30)
[2018-04-13 16:06] VITALS: BP 143/77
[2018-04-13] MEDS ORDERED: CARVEDILOL 3.125 MG TABLET PO SCH (17:00)
[2018-04-13] MEDS ORDERED: WARFARIN 3 MG TABLET PO SCH (18:00)
[2018-04-13] MEDS ORDERED: LOSARTAN 25 MG TABLET PO SCH (21:00)
[2018-04-13] MEDS ORDERED: BUDESONIDE/FORMOTEROL 160-4.5 INHALER 6 GM INH SCH (21:00)
== END 2018-04-13 18:03 | disposition home or self-care (01) ==
LOC: N.ED 16:51 → INTOOBSV 19:08 → N.EDINP 19:08 → N.2E 20:48
PROVIDERS: ADMIT Internal Medicine; ATTEND Internal Medicine

== ENCOUNTER 2018-05-10 09:31 | Inpatient (IN) ==
[2018-05-10] MEDS ORDERED: ALBUTEROL 2.5 MG/3 ML NEB RESP TX STA (09:52)
[2018-05-10 10:21] LABS: Basophils % 0.5 % (0.0-0.8); Eosinophils # 0.2 10*3/uL (0.0-0.87); Hematocrit 31.2 VOL% (42.0-52.0); Hemoglobin 9.9 GM/DL (14.0-18.0); Immature Granulocytes % 0.9 %; Immature Granulocytes Absolute 0.07 #; Lymphocytes # 1.5 10*3/uL (1.4-4.0); Lymphocytes % 20.8 % (21.2-54.2); Mean Corpuscular HGB Conc 31.7 GM/DL (32-36); Mean Corpuscular Hemoglobin 32 PG (27-34); Mean Corpuscular Volume 101.6 FL (87-102); Mean Platelet Volume 13.1 FL (9.6-12.0); Monocytes # 0.6 10*3/uL (0.11-0.8); Monocytes % 7.6 % (1.7-12.7); Neutrophils % 68.2 % (38.7-73.9); Platelet Count 182 T/CUMM (130-400); Red Blood Count 3.07 MC/CUMM (3.8-5.5); Red Cell Distribution Width 17.2 % (9.3-17.3); White Blood Count 7.4 T/CUMM (4-12)
[2018-05-10 10:30] LABS: PT Patient Result 10.4 SECS; Partial Thromboplastin Time 28.5 SECS (0-40)
[2018-05-10 10:53] LABS: Bilirubin,Total 0.4 MG/DL (0.2-1.0); Calcium 9.1 MG/DL (8.5-10.1); Osmolality,Calculated 281.3 MOS/KG (273-304); Potassium 4.1 MMOL/L (3.5-5.1); Total Protein 6.5 G/DL (6.4-8.3)
[2018-05-10] MEDS ORDERED: FUROSEMIDE 40 MG/4 ML VIAL IV STA (11:14)
[2018-05-10 12:03] LABS: Apearance,Urine CLEAR (Clear); Bilirubin,Urine Negative (Negative); Blood, Urine Negative (Negative); Glucose,Urine (UA) Negative (Negative); Ketones,Urine Negative (Negative); Nitrite,Urine Negative (Negative); Protein,Urine 30 MG/DL; Urine Color Colorless (Yellow); Urine Specific Gravity 1.005 (1.001-1.035); Urine Urobilinogen < 2.0 EU/DL (0.2-1.0)
[2018-05-10] MEDS ORDERED: DOCUSATE SODIUM 100 MG CAPSULE PO PRN (12:11)
[2018-05-10] MEDS ORDERED: ACETAMINOPHEN 325 MG TABLET PO PRN (12:11)
[2018-05-10] MEDS ORDERED: ONDANSETRON 4 MG/2 ML VIAL IV PRN (12:11)
[2018-05-10] MEDS: ALBUTEROL/IPRATROPIUM 3 ML NEB RESP TX SCH ×2 (13:05→19:11)
[2018-05-10 13:19] LABS: Risk Ratio 2.63; Thyroid Stimulating Hormone 5.2 uIU/ml (0.358-3.74); VLDL CHOLESTEROL 16.2 MG/DL
[2018-05-10] MEDS: predniSONE 20 MG TABLET PO SCH (13:38)
[2018-05-10] MEDS: CARVEDILOL 3.125 MG TABLET PO SCH (17:04)
[2018-05-10 18:50] LABS: Troponin I < 0.015 NG/ML (0.00-0.045)
[2018-05-10] MEDS: tiZANidine 4 MG TABLET PO SCH (21:38)
[2018-05-10] MEDS: LOSARTAN 25 MG TABLET PO SCH (21:38)
[2018-05-10] MEDS: BUDESONIDE/FORMOTEROL 160-4.5 INHALER 6 GM INH SCH (21:39)
[2018-05-10] MEDS: POTASSIUM CHLORIDE 20 MEQ TABLET PO SCH (21:39)
[2018-05-10 23:16] LABS: Troponin I 0.019 NG/ML (0.00-0.045)
[2018-05-11] MEDS: ALBUTEROL/IPRATROPIUM 3 ML NEB RESP TX SCH ×4 (00:37→19:37)
[2018-05-11 05:12] LABS: Basophils % 0.2 % (0.0-0.8); Hematocrit 31.7 VOL% (42.0-52.0); Immature Granulocytes % 1.4 %; Immature Granulocytes Absolute 0.07 #; Lymphocytes # 0.8 10*3/uL (1.4-4.0); Lymphocytes % 15.9 % (21.2-54.2); Mean Corpuscular HGB Conc 31.5 GM/DL (32-36); Mean Corpuscular Hemoglobin 32 PG (27-34); Mean Corpuscular Volume 100.6 FL (87-102); Mean Platelet Volume 13.1 FL (9.6-12.0); Monocytes # 0.3 10*3/uL (0.11-0.8); Monocytes % 5.3 % (1.7-12.7); Neutrophils # 3.8 10*3/uL (1.4-7.4); Neutrophils % 77.2 % (38.7-73.9); Platelet Count 183 T/CUMM (130-400); Red Blood Count 3.15 MC/CUMM (3.8-5.5); Red Cell Distribution Width 17.2 % (9.3-17.3); White Blood Count 4.9 T/CUMM (4-12)
[2018-05-11 05:42] LABS: Calcium 9.3 MG/DL (8.5-10.1); Osmolality,Calculated 284.4 MOS/KG (273-304)
[2018-05-11] MEDS: CARVEDILOL 3.125 MG TABLET PO SCH ×2 (09:28→16:12)
[2018-05-11] MEDS: ALLOPURINOL 300 MG TABLET PO SCH (09:28)
[2018-05-11] MEDS: POTASSIUM CHLORIDE 20 MEQ TABLET PO SCH ×2 (09:28→20:34)
[2018-05-11] MEDS: BUDESONIDE/FORMOTEROL 160-4.5 INHALER 6 GM INH SCH ×2 (09:29→20:35)
[2018-05-11] MEDS: PANTOPRAZOLE 40 MG TABLET PO SCH (09:29)
[2018-05-11] MEDS: predniSONE 20 MG TABLET PO SCH (09:29)
[2018-05-11] MEDS: tiZANidine 4 MG TABLET PO SCH (20:34)
[2018-05-11] MEDS: LOSARTAN 25 MG TABLET PO SCH (20:35)
[2018-05-12] MEDS: ALBUTEROL/IPRATROPIUM 3 ML NEB RESP TX SCH ×2 (01:07→08:25)
[2018-05-12] MEDS ORDERED: MAGNESIUM HYDROXIDE SUSP 30 ML UDCUP PO PRN (07:45)
[2018-05-12] MEDS: ALLOPURINOL 300 MG TABLET PO SCH (08:30)
[2018-05-12] MEDS: BUDESONIDE/FORMOTEROL 160-4.5 INHALER 6 GM INH SCH (08:30)
[2018-05-12] MEDS: predniSONE 20 MG TABLET PO SCH (08:30)
[2018-05-12] MEDS: CARVEDILOL 3.125 MG TABLET PO SCH (08:30)
[2018-05-12] MEDS: PANTOPRAZOLE 40 MG TABLET PO SCH (08:30)
[2018-05-12] MEDS: POTASSIUM CHLORIDE 20 MEQ TABLET PO SCH (08:30)
[2018-05-12 08:36] LABS: Basophils % 0.2 % (0.0-0.8); Eosinophils % 0.2 % (0.00-10.9); Hematocrit 31.8 VOL% (42.0-52.0); Hemoglobin 10.4 GM/DL (14.0-18.0); Immature Granulocytes % 0.8 %; Immature Granulocytes Absolute 0.07 #; Lymphocytes # 1.6 10*3/uL (1.4-4.0); Lymphocytes % 18.4 % (21.2-54.2); Mean Corpuscular HGB Conc 32.7 GM/DL (32-36); Mean Corpuscular Hemoglobin 33 PG (27-34); Mean Platelet Volume 12.9 FL (9.6-12.0); Monocytes # 0.6 10*3/uL (0.11-0.8); Monocytes % 6.4 % (1.7-12.7); Neutrophils # 6.5 10*3/uL (1.4-7.4); Platelet Count 204 T/CUMM (130-400); Red Blood Count 3.18 MC/CUMM (3.8-5.5); Red Cell Distribution Width 16.7 % (9.3-17.3); White Blood Count 8.8 T/CUMM (4-12)
[2018-05-12 09:02] LABS: Calcium 9.3 MG/DL (8.5-10.1); Osmolality,Calculated 278.8 MOS/KG (273-304); Potassium 4.1 MMOL/L (3.5-5.1)
[2018-05-12 11:48] VITALS: BP 188/92
== END 2018-05-12 12:01 | disposition home or self-care (01) | DRG 191 ==
LOC: N.ED 09:31 → N.EDINP 11:21 → N.2E 14:50
PROVIDERS: ADMIT Internal Medicine; ATTEND Internal Medicine

== ENCOUNTER 2018-06-13 08:38 | Observation (INO) ==
[2018-06-13] MEDS ORDERED: methylPREDNISolone SOD SUC 125 MG/2 ML VIAL IV STA (09:58)
[2018-06-13] MEDS ORDERED: ALBUTEROL 2.5 MG/3 ML NEB RESP TX SCH (10:00)
[2018-06-13 10:35] LABS: ABG Base Excess 0.2 MMOL/L (-2.5-2.5); ABG HCO3 24.5 MMOL/L (20-26); ABG Oxygen Saturation 94.9 % (95-100); ABG PCO2 34.2 MM HG (35-48); ABG PH 7.447 (7.35-7.45); ABG TCO2 20.9 MMOL/L (23-27)
[2018-06-13 10:50] LABS: Basophils # 0.1 10*3/uL (0.0-0.2); Basophils % 0.7 % (0.0-0.8); Eosinophils # 0.2 10*3/uL (0.0-0.87); Eosinophils % 1.5 % (0.00-10.9); Hematocrit 37.4 VOL% (42.0-52.0); Hemoglobin 11.9 GM/DL (14.0-18.0); Immature Granulocytes % 0.6 %; Immature Granulocytes Absolute 0.06 #; Lymphocytes # 1.7 10*3/uL (1.4-4.0); Lymphocytes % 17.1 % (21.2-54.2); Mean Corpuscular HGB Conc 31.8 GM/DL (32-36); Mean Corpuscular Hemoglobin 32 PG (27-34); Mean Platelet Volume 12.7 FL (9.6-12.0); Monocytes # 0.8 10*3/uL (0.11-0.8); Monocytes % 8.4 % (1.7-12.7); NRBC # 0.02 10*3/uL; Neutrophils % 71.7 % (38.7-73.9); Platelet Count 211 T/CUMM (130-400); Red Blood Count 3.74 MC/CUMM (3.8-5.5); Red Cell Distribution Width 15.7 % (9.3-17.3); White Blood Count 9.7 T/CUMM (4-12)
[2018-06-13 11:00] LABS: INR 1.9
[2018-06-13 11:19] LABS: Albumin 3.3 G/DL (3.4-5.0); Bilirubin,Total 0.6 MG/DL (0.2-1.0); Calcium 9.3 MG/DL (8.5-10.1); Osmolality,Calculated 272.1 MOS/KG (273-304); Potassium 4.2 MMOL/L (3.5-5.1); Total Protein 8.1 G/DL (6.4-8.3)
[2018-06-13] MEDS ORDERED: FUROSEMIDE 40 MG/4 ML VIAL IV STA (11:31)
[2018-06-13] MEDS ORDERED: guaiFENesin/DM ER 600-30 MG TABLET PO PRN (15:42)
[2018-06-13] MEDS ORDERED: MAGNESIUM SULF RIDER 4 GM in PREMIX 1 EACH IV PRN (15:42)
[2018-06-13] MEDS ORDERED: POTASSIUM CHLORIDE RIDER 10 MEQ in PREMIX 1 EACH IV PRN (15:42)
[2018-06-13] MEDS ORDERED: ZALEPLON 5 MG CAPSULE PO PRN (15:42)
[2018-06-13] MEDS ORDERED: ONDANSETRON 4 MG/2 ML VIAL IV PRN (15:42)
[2018-06-13] MEDS ORDERED: diphenhydrAMINE CAP 25 MG CAPSULE PO PRN (15:42)
[2018-06-13] MEDS ORDERED: MAGNESIUM SULF RIDER 2 GM in PREMIX 1 EACH IV PRN (15:42)
[2018-06-13] MEDS ORDERED: ACETAMINOPHEN 325 MG TABLET PO PRN (15:42)
[2018-06-13] MEDS ORDERED: ALBUTEROL 2.5 MG/3 ML NEB RESP TX PRN (15:42)
[2018-06-13] MEDS ORDERED: MAGNESIUM HYDROXIDE SUSP 30 ML UDCUP PO ONE (15:50)
[2018-06-13] MEDS: methylPREDNISolone SOD SUC 40 MG/1 ML VIAL IV SCH ×2 (16:13→21:21)
[2018-06-13] MEDS: FUROSEMIDE 40 MG/4 ML VIAL IV SCH (16:13)
[2018-06-13] MEDS: WARFARIN 3 MG TABLET PO SCH (18:00)
[2018-06-13] MEDS: ALBUTEROL/IPRATROPIUM 3 ML NEB RESP TX SCH (18:58)
[2018-06-13] MEDS: POTASSIUM CHLORIDE 20 MEQ TABLET PO SCH (21:20)
[2018-06-13] MEDS: CARVEDILOL 25 MG TABLET PO SCH (21:21)
[2018-06-13] MEDS: BUDESONIDE/FORMOTEROL 160-4.5 INHALER 6 GM INH SCH (21:21)
[2018-06-13] MEDS: DOCUSATE SODIUM 100 MG CAPSULE PO SCH (21:21)
[2018-06-14] MEDS: ALBUTEROL/IPRATROPIUM 3 ML NEB RESP TX SCH ×4 (01:30→19:25)
[2018-06-14] MEDS: methylPREDNISolone SOD SUC 40 MG/1 ML VIAL IV SCH ×4 (04:25→20:58)
[2018-06-14 05:32] LABS: INR 1.7; PT Patient Result 18.3 SECS
[2018-06-14 05:38] LABS: Basophils % 0.1 % (0.0-0.8); Hematocrit 34.5 VOL% (42.0-52.0); Hemoglobin 11.3 GM/DL (14.0-18.0); Immature Granulocytes % 0.5 %; Immature Granulocytes Absolute 0.04 #; Lymphocytes # 0.8 10*3/uL (1.4-4.0); Lymphocytes % 10.4 % (21.2-54.2); Mean Corpuscular HGB Conc 32.8 GM/DL (32-36); Mean Corpuscular Hemoglobin 32 PG (27-34); Mean Corpuscular Volume 98.6 FL (87-102); Mean Platelet Volume 13.5 FL (9.6-12.0); Monocytes # 0.1 10*3/uL (0.11-0.8); NRBC # 0.02 10*3/uL; Neutrophils # 6.9 10*3/uL (1.4-7.4); Platelet Count 205 T/CUMM (130-400); White Blood Count 7.9 T/CUMM (4-12)
[2018-06-14 05:55] LABS: Albumin 2.7 G/DL (3.4-5.0); Bilirubin,Total 0.8 MG/DL (0.2-1.0); Calcium 9.5 MG/DL (8.5-10.1); Potassium 4.2 MMOL/L (3.5-5.1); Total Protein 7.6 G/DL (6.4-8.3)
[2018-06-14] MEDS ORDERED: FUROSEMIDE 40 MG TABLET PO SCH (09:00)
[2018-06-14] MEDS: LINACLOTIDE 145 MCG CAPSULE PO SCH (09:47)
[2018-06-14] MEDS: ALLOPURINOL 300 MG TABLET PO SCH (10:15)
[2018-06-14] MEDS: PANTOPRAZOLE 40 MG TABLET PO SCH (10:15)
[2018-06-14] MEDS: COLCHICINE 0.6 MG CAPSULE PO SCH (10:15)
[2018-06-14] MEDS: CARVEDILOL 25 MG TABLET PO SCH ×2 (10:15→20:54)
[2018-06-14] MEDS: DOCUSATE SODIUM 100 MG CAPSULE PO SCH ×2 (10:15→20:55)
[2018-06-14] MEDS: BISACODYL 5 MG TABLET PO SCH (10:15)
[2018-06-14] MEDS: POTASSIUM CHLORIDE 20 MEQ TABLET PO SCH ×2 (10:16→20:55)
[2018-06-14] MEDS: BUDESONIDE/FORMOTEROL 160-4.5 INHALER 6 GM INH SCH ×2 (10:16→20:59)
[2018-06-14] MEDS: FUROSEMIDE 40 MG/4 ML VIAL IV SCH (10:18)
[2018-06-14] MEDS ORDERED: SODIUM CHLORIDE 23.4% CONC INJ 38.5 MEQ in STERILE WATER INJ 1,000 ML IV SCH (11:00)
[2018-06-14] MEDS: WARFARIN 3 MG TABLET PO SCH (18:30)
[2018-06-15] MEDS: ALBUTEROL/IPRATROPIUM 3 ML NEB RESP TX SCH ×2 (00:10→06:55)
[2018-06-15] MEDS: methylPREDNISolone SOD SUC 40 MG/1 ML VIAL IV SCH ×2 (02:59→10:17)
[2018-06-15 05:46] LABS: PT Patient Result 21.4 SECS
[2018-06-15 07:36] LABS: Basophils % 0.1 % (0.0-0.8); Hematocrit 31.4 VOL% (42.0-52.0); Immature Granulocytes % 0.5 %; Immature Granulocytes Absolute 0.07 #; Lymphocytes # 0.6 10*3/uL (1.4-4.0); Lymphocytes % 4.4 % (21.2-54.2); Mean Corpuscular HGB Conc 31.8 GM/DL (32-36); Mean Corpuscular Hemoglobin 32 PG (27-34); Mean Corpuscular Volume 100.3 FL (87-102); Mean Platelet Volume 13.9 FL (9.6-12.0); Monocytes # 0.2 10*3/uL (0.11-0.8); Monocytes % 1.8 % (1.7-12.7); NRBC # 0.02 10*3/uL; Neutrophils # 12.4 10*3/uL (1.4-7.4); Neutrophils % 93.2 % (38.7-73.9); Platelet Count 174 T/CUMM (130-400); Red Blood Count 3.13 MC/CUMM (3.8-5.5); Red Cell Distribution Width 15.5 % (9.3-17.3); White Blood Count 13.3 T/CUMM (4-12)
[2018-06-15 07:41] VITALS: BP 145/71
[2018-06-15 07:55] LABS: Hypochromasia 1+; Lymphocytes 4 % (20-55); Ovalocytes Slight; Platelet Estimate Adequate; Segmented Neutrophils 92 % (50-85); Total Cells Counted 100
[2018-06-15 07:56] LABS: Alanine Aminotransferase 11 U/L (16-61); Albumin 2.8 G/DL (3.4-5.0); Alkaline Phosphatase 55 U/L (45-117); Aspartate Amino Transferase 13 U/L (0-37); Bilirubin,Total < 0.39 MG/DL (0.2-1.0); Blood Urea Nitrogen 50 MG/DL (7-18); Calcium 8.8 MG/DL (8.5-10.1); Glucose 191 MG/DL (74-106); Osmolality,Calculated 287.1 MOS/KG (273-304); Potassium 4.7 MMOL/L (3.5-5.1); Sodium 135 MMOL/L (136-145); Total Protein 6.9 G/DL (6.4-8.3)
[2018-06-15] MEDS: POTASSIUM CHLORIDE 20 MEQ TABLET PO SCH (10:16)
[2018-06-15] MEDS: COLCHICINE 0.6 MG CAPSULE PO SCH (10:16)
[2018-06-15] MEDS: DOCUSATE SODIUM 100 MG CAPSULE PO SCH (10:16)
[2018-06-15] MEDS: PANTOPRAZOLE 40 MG TABLET PO SCH (10:16)
[2018-06-15] MEDS: BISACODYL 5 MG TABLET PO SCH (10:16)
[2018-06-15] MEDS: ALLOPURINOL 300 MG TABLET PO SCH (10:17)
[2018-06-15] MEDS: LINACLOTIDE 145 MCG CAPSULE PO SCH (10:18)
[2018-06-15] MEDS: CARVEDILOL 25 MG TABLET PO SCH (10:18)
[2018-06-15] MEDS: BUDESONIDE/FORMOTEROL 160-4.5 INHALER 6 GM INH SCH (10:19)
== END 2018-06-15 11:19 | disposition home or self-care (01) ==
LOC: N.ED 08:38 → INTOOBSV 12:51 → N.EDINP 12:51 → N.2E 15:45
PROVIDERS: ADMIT Internal Medicine; ATTEND Internal Medicine

== ENCOUNTER 2018-06-28 20:25 | Observation (INO) ==
[2018-06-28] MEDS ORDERED: methylPREDNISolone SOD SUC 125 MG/2 ML VIAL IV STA (20:53)
[2018-06-28] MEDS ORDERED: ONDANSETRON 4 MG/2 ML VIAL IV STA (20:53)
[2018-06-28] MEDS ORDERED: FUROSEMIDE 100 MG/10 ML VIAL IV STA (20:53)
[2018-06-28] MEDS ORDERED: ALBUTEROL 2.5 MG/3 ML NEB RESP TX SCH (21:00)
[2018-06-28] MEDS ORDERED: FUROSEMIDE 40 MG/4 ML VIAL ONE (21:18)
[2018-06-28 21:25] LABS: Basophils # 0.1 10*3/uL (0.0-0.2); Basophils % 0.5 % (0.0-0.8); Eosinophils # 0.1 10*3/uL (0.0-0.87); Eosinophils % 1.4 % (0.00-10.9); Hematocrit 25.8 VOL% (42.0-52.0); Hemoglobin 8.3 GM/DL (14.0-18.0); Immature Granulocytes % 0.5 %; Immature Granulocytes Absolute 0.05 #; Lymphocytes # 1.6 10*3/uL (1.4-4.0); Lymphocytes % 17.3 % (21.2-54.2); Mean Corpuscular HGB Conc 32.2 GM/DL (32-36); Mean Corpuscular Hemoglobin 32 PG (27-34); Mean Corpuscular Volume 100.8 FL (87-102); Monocytes # 0.6 10*3/uL (0.11-0.8); Monocytes % 6.9 % (1.7-12.7); Neutrophils # 6.7 10*3/uL (1.4-7.4); Neutrophils % 73.4 % (38.7-73.9); Platelet Count 120 T/CUMM (130-400); Red Blood Count 2.56 MC/CUMM (3.8-5.5); Red Cell Distribution Width 16.2 % (9.3-17.3); White Blood Count 9.1 T/CUMM (4-12)
[2018-06-28 21:35] LABS: INR 1.5; PT Patient Result 16.7 SECS
[2018-06-28 21:43] LABS: Partial Thromboplastin Time 43.7 SECS (0-40)
[2018-06-28 21:54] LABS: Bilirubin,Total 0.5 MG/DL (0.2-1.0); Calcium 8.3 MG/DL (8.5-10.1); Osmolality,Calculated 279.4 MOS/KG (273-304); Potassium 4.4 MMOL/L (3.5-5.1); Total Protein 6.3 G/DL (6.4-8.3)
[2018-06-28] MEDS ORDERED: FUROSEMIDE 40 MG/4 ML VIAL IV STA (22:29)
[2018-06-28 23:28] LABS: Apearance,Urine CLEAR (Clear); Bilirubin,Urine Negative (Negative); Blood, Urine Negative (Negative); Glucose,Urine (UA) Negative (Negative); Hyaline Casts,Urine 4 /LPF (0-3); Ketones,Urine Negative (Negative); Mucus,Urine Occasional /LPF (Occasional); Nitrite,Urine Negative (Negative); Protein,Urine 100 MG/DL; RBC,Urine 1 /HPF (0-4); Squamous Epithelial Cell,Urine Occasional /HPF (0-10); Urine Color Colorless (Yellow); Urine Specific Gravity 1.014 (1.001-1.035); Urine Urobilinogen < 2.0 EU/DL (0.2-1.0); WBC,Urine <1 /HPF (0-6)
[2018-06-28] MEDS ORDERED: MORPHINE 4 MG/1 ML VIAL IV PRN (23:36)
[2018-06-28] MEDS ORDERED: diphenhydrAMINE CAP 25 MG CAPSULE PO PRN (23:36)
[2018-06-28] MEDS ORDERED: guaiFENesin/DM ER 600-30 MG TABLET PO PRN (23:36)
[2018-06-28] MEDS ORDERED: ONDANSETRON 4 MG/2 ML VIAL IV PRN (23:36)
[2018-06-28] MEDS ORDERED: BISACODYL 5 MG TABLET PO PRN (23:36)
[2018-06-28] MEDS ORDERED: ACETAMINOPHEN 325 MG TABLET PO PRN (23:36)
[2018-06-29 00:01] LABS: Anisocytosis 1+; Platelet Estimate Decreased
[2018-06-29 06:11] LABS: Hematocrit 31.3 VOL% (42.0-52.0); Hemoglobin 10.3 GM/DL (14.0-18.0); Immature Granulocytes % 0.8 %; Immature Granulocytes Absolute 0.04 #; Lymphocytes # 0.3 10*3/uL (1.4-4.0); Lymphocytes % 6.8 % (21.2-54.2); Mean Corpuscular HGB Conc 32.9 GM/DL (32-36); Mean Corpuscular Hemoglobin 32 PG (27-34); Mean Corpuscular Volume 97.8 FL (87-102); Mean Platelet Volume 14.1 FL (9.6-12.0); Monocytes # 0.1 10*3/uL (0.11-0.8); Neutrophils # 4.4 10*3/uL (1.4-7.4); Neutrophils % 91.4 % (38.7-73.9); Platelet Count 123 T/CUMM (130-400); Red Cell Distribution Width 16.2 % (9.3-17.3); White Blood Count 4.8 T/CUMM (4-12)
[2018-06-29 06:38] LABS: Albumin 2.9 G/DL (3.4-5.0); Bilirubin,Total 0.7 MG/DL (0.2-1.0); Osmolality,Calculated 282.7 MOS/KG (273-304); Potassium 4.4 MMOL/L (3.5-5.1); Total Protein 7.1 G/DL (6.4-8.3)
[2018-06-29 06:54] LABS: Hypochromasia 1+; Lymphocytes 5 % (20-55); Ovalocytes Slight; Platelet Estimate Adequate; Segmented Neutrophils 95 % (50-85); Total Cells Counted 100
[2018-06-29] MEDS ORDERED: FUROSEMIDE 20 MG/2 ML VIAL IV SCH (08:00)
[2018-06-29 08:39] LABS: Troponin I 0.025 NG/ML (0.00-0.045)
[2018-06-29] MEDS ORDERED: SODIUM PHOSPHATE ENEMA 133 ML BOTTLE RECTAL ONE (08:47)
[2018-06-29] MEDS ORDERED: METHYLNALTREXONE 12 MG/0.6 ML VIAL SUBCUT ONE (08:47)
[2018-06-29] MEDS ORDERED: NON-FORMULARY MEDICATION (Budesonide/Formoterol 160-4.5 [Symbicort 160-4.5] 2 PUFF) INH SCH (09:00)
[2018-06-29] MEDS ORDERED: POTASSIUM CHLORIDE 20 MEQ TABLET PO SCH (09:00)
[2018-06-29] MEDS ORDERED: CARVEDILOL 25 MG TABLET PO SCH (09:00)
[2018-06-29] MEDS ORDERED: tiZANidine 4 MG TABLET PO SCH (09:00)
[2018-06-29] MEDS ORDERED: RIVAROXABAN 15 MG TABLET PO SCH (09:00)
[2018-06-29] MEDS ORDERED: PANTOPRAZOLE 40 MG TABLET PO SCH (09:00)
[2018-06-29] MEDS ORDERED: amLODIPine 10 MG TABLET PO SCH (09:00)
[2018-06-29 13:02] LABS: Troponin I 0.019 NG/ML (0.00-0.045)
[2018-06-29 16:17] VITALS: BP 102/55
[2018-06-29] MEDS ORDERED: WARFARIN 3 MG TABLET PO SCH (18:00)
== END 2018-06-29 17:15 | disposition home or self-care (01) ==
LOC: N.EDINP 20:25 → N.ED 20:25 → SUATTDRO 23:36 → N.TELES 06-29 00:59
PROVIDERS: ADMIT Internal Medicine; ATTEND Internal Medicine

== ENCOUNTER 2018-07-16 21:42 | Observation (INO) ==
[2018-07-16] MEDS ORDERED: ALBUTEROL 2.5 MG/3 ML NEB RESP TX SCH (22:00)
[2018-07-16] MEDS ORDERED: methylPREDNISolone SOD SUC 125 MG/2 ML VIAL IV STA (22:00)
[2018-07-16] MEDS ORDERED: AZITHROMYCIN INJ 500 MG in SODIUM CHLORIDE 0.9% 250 ML IV STA (22:00)
[2018-07-16] MEDS ORDERED: cefTRIAXone 1,000 MG in SODIUM CHLORIDE 0.9% 100 ML IV STA (22:00)
[2018-07-16 22:19] LABS: Basophils # 0.1 10*3/uL (0.0-0.2); Basophils % 0.4 % (0.0-0.8); Hematocrit 34.3 VOL% (42.0-52.0); Hemoglobin 11.1 GM/DL (14.0-18.0); Immature Granulocytes % 1.5 %; Immature Granulocytes Absolute 0.32 #; Lymphocytes % 4.6 % (21.2-54.2); Mean Corpuscular HGB Conc 32.4 GM/DL (32-36); Mean Corpuscular Volume 98.3 FL (87-102); Mean Platelet Volume 13.1 FL (9.6-12.0); Monocytes % 4.4 % (1.7-12.7); Neutrophils % 89.1 % (38.7-73.9); Platelet Count 198 T/CUMM (130-400); Red Blood Count 3.49 MC/CUMM (3.8-5.5); Red Cell Distribution Width 15.7 % (9.3-17.3); White Blood Count 21.8 T/CUMM (4-12)
[2018-07-16 22:30] LABS: Partial Thromboplastin Time 39.2 SECS (0-40)
[2018-07-16 22:36] LABS: PT Patient Result 22.1 SECS
[2018-07-16 22:38] LABS: Alanine Aminotransferase 13 U/L (16-61); Albumin 3.3 G/DL (3.4-5.0); Alkaline Phosphatase 56 U/L (45-117); Aspartate Amino Transferase 24 U/L (0-37); Blood Urea Nitrogen 19 MG/DL (7-18); Calcium 9.1 MG/DL (8.5-10.1); Glucose 80 MG/DL (74-106); Osmolality,Calculated 270.1 MOS/KG (273-304); Troponin I 0.031 NG/ML (0.00-0.045)
[2018-07-16] MEDS ORDERED: guaiFENesin/DM ER 600-30 MG TABLET PO PRN (22:45)
[2018-07-16] MEDS ORDERED: ALBUTEROL 2.5 MG/3 ML NEB RESP TX PRN (22:45)
[2018-07-16] MEDS ORDERED: ONDANSETRON 4 MG/2 ML VIAL IV PRN (22:45)
[2018-07-16] MEDS ORDERED: NICOTINE 21 MG/24 HR PATCH TRANSDERM PRN (22:45)
[2018-07-16] MEDS ORDERED: MORPHINE 4 MG/1 ML VIAL IV PRN (22:45)
[2018-07-16] MEDS ORDERED: BISACODYL 5 MG TABLET PO PRN (22:45)
[2018-07-16] MEDS ORDERED: ACETAMINOPHEN 325 MG TABLET PO PRN (22:45)
[2018-07-16] MEDS ORDERED: diphenhydrAMINE CAP 25 MG CAPSULE PO PRN (22:45)
[2018-07-16 23:00] LABS: Apearance,Urine Slightly Hazy (Clear); Bacteria,Urine Occasional /HPF (Few); Bilirubin,Urine Negative (Negative); Blood, Urine Small mg/dL (Negative); Glucose,Urine (UA) Negative (Negative); Hyaline Casts,Urine 16 /LPF (0-3); Ketones,Urine Negative (Negative); Mucus,Urine Occasional /LPF (Occasional); Nitrite,Urine Negative (Negative); Protein,Urine >=500 MG/DL; RBC,Urine <1 /HPF (0-4); Squamous Epithelial Cell,Urine Occasional /HPF (0-10); Urine Color Yellow (Yellow); Urine Specific Gravity 1.012 (1.001-1.035); Urine Urobilinogen < 2.0 EU/DL (0.2-1.0); WBC,Urine 1 /HPF (0-6)
[2018-07-16 23:06] LABS: Barbiturates Screen,Urine Negative (Negative); Benzodiazepines Screen,Urine Negative (Negative); Cannabinoid Screen,Urine Negative (Negative); Opiate Screen,Urine Negative (Negative); Phencyclidine Screen,Urine Negative (Negative)
[2018-07-17 00:18] LABS: Band Neutrophils 1 % (0-10); Lymphocytes 5 % (20-55); Metamyelocytes 2 %; Segmented Neutrophils 87 % (50-85); Total Cells Counted 100
[2018-07-17 00:19] LABS: Hypochromasia 1+; Platelet Estimate Normal
[2018-07-17] MEDS: ALBUTEROL/IPRATROPIUM 3 ML NEB RESP TX SCH ×4 (01:29→19:38)
[2018-07-17 07:25] LABS: Basophils # 0.1 10*3/uL (0.0-0.2); Basophils % 0.2 % (0.0-0.8); Hematocrit 33.5 VOL% (42.0-52.0); Hemoglobin 10.9 GM/DL (14.0-18.0); Immature Granulocytes Absolute 0.46 #; Lymphocytes # 0.9 10*3/uL (1.4-4.0); Lymphocytes % 3.7 % (21.2-54.2); Mean Corpuscular HGB Conc 32.5 GM/DL (32-36); Mean Corpuscular Volume 98.8 FL (87-102); Mean Platelet Volume 13.6 FL (9.6-12.0); Monocytes % 2.1 % (1.7-12.7); Platelet Count 204 T/CUMM (130-400); Red Blood Count 3.39 MC/CUMM (3.8-5.5); Red Cell Distribution Width 15.6 % (9.3-17.3)
[2018-07-17 07:41] LABS: Calcium 9.3 MG/DL (8.5-10.1); Osmolality,Calculated 275.1 MOS/KG (273-304)
[2018-07-17 08:10] LABS: Band Neutrophils 6 % (0-10); Hypochromasia Slight; Lymphocytes 3 % (20-55); Ovalocytes Slight; Platelet Estimate Adequate; Segmented Neutrophils 87 % (50-85); Total Cells Counted 100
[2018-07-17] MEDS ORDERED: ALBUTEROL 2.5 MG/3 ML NEB RESP TX PRN (08:33)
[2018-07-17] MEDS: ALLOPURINOL 300 MG TABLET PO SCH (08:51)
[2018-07-17] MEDS: COLCHICINE 0.6 MG CAPSULE PO SCH (08:51)
[2018-07-17] MEDS: CARVEDILOL 25 MG TABLET PO SCH ×2 (08:51→21:32)
[2018-07-17] MEDS: PANTOPRAZOLE 40 MG TABLET PO SCH (08:52)
[2018-07-17] MEDS: methylPREDNISolone SOD SUC 40 MG/1 ML VIAL IV SCH ×2 (08:53→21:32)
[2018-07-17] MEDS ORDERED: methylPREDNISolone SOD SUC 40 MG/1 ML VIAL IV SCH (09:00)
[2018-07-17] MEDS ORDERED: LEVOFLOXACIN INJ 750 MG in PREMIX 1 EACH IV SCH (09:00)
[2018-07-17] MEDS ORDERED: FORMOTEROL INH SCH (09:00)
[2018-07-17] MEDS ORDERED: BUDESONIDE INH SCH (09:00)
[2018-07-17] MEDS ORDERED: FUROSEMIDE 40 MG/4 ML VIAL IV ONE (09:01)
[2018-07-17] MEDS: PIPERACILLIN/TAZOBACTAM 3,375 MG in SODIUM CHLORIDE 0.9% 100 ML IV SCH ×2 (14:31→21:33)
[2018-07-17] MEDS ORDERED: WARFARIN 3 MG TABLET PO SCH (18:00)
[2018-07-17] MEDS ORDERED: cefTRIAXone 1,000 MG in SYRINGE 1 EACH IV SCH (21:00)
[2018-07-17 23:00] LABS: Protein/Creatinine Ratio,Urine 1.1 RATIO
[2018-07-17] MEDS ORDERED: AZITHROMYCIN INJ 500 MG in SODIUM CHLORIDE 0.9% 250 ML IV SCH (23:00)
[2018-07-18] MEDS: ALBUTEROL/IPRATROPIUM 3 ML NEB RESP TX SCH ×4 (00:08→19:20)
[2018-07-18 05:11] LABS: Random Urine Protein (Bench) 117 MG/DL (<11.9)
[2018-07-18 05:44] LABS: INR 2.9; PT Patient Result 31.5 SECS
[2018-07-18 05:51] LABS: Basophils % 0.1 % (0.0-0.8); Hematocrit 30.1 VOL% (42.0-52.0); Hemoglobin 9.7 GM/DL (14.0-18.0); Immature Granulocytes % 1.8 %; Immature Granulocytes Absolute 0.34 #; Lymphocytes # 0.8 10*3/uL (1.4-4.0); Lymphocytes % 4.4 % (21.2-54.2); Mean Corpuscular HGB Conc 32.2 GM/DL (32-36); Mean Corpuscular Volume 97.7 FL (87-102); Mean Platelet Volume 13.6 FL (9.6-12.0); NRBC # 0.04 10*3/uL; Neutrophils % 91.7 % (38.7-73.9); Platelet Count 182 T/CUMM (130-400); Red Blood Count 3.08 MC/CUMM (3.8-5.5); Red Cell Distribution Width 15.5 % (9.3-17.3); White Blood Count 18.9 T/CUMM (4-12)
[2018-07-18 05:53] LABS: Osmolality,Calculated 279.4 MOS/KG (273-304)
[2018-07-18 06:24] LABS: Anisocytosis 1+; Band Neutrophils 3 % (0-10); Hypochromasia 2+; Lymphocytes 9 % (20-55); Macrocytosis 1+; Ovalocytes Few; Platelet Estimate Normal; Segmented Neutrophils 86 % (50-85); Target Cells 1+; Total Cells Counted 100
[2018-07-18] MEDS: PIPERACILLIN/TAZOBACTAM 3,375 MG in SODIUM CHLORIDE 0.9% 100 ML IV SCH ×3 (06:30→22:09)
[2018-07-18] MEDS ORDERED: LEVOFLOXACIN 500 MG TABLET PO SCH (08:30)
[2018-07-18] MEDS: CARVEDILOL 25 MG TABLET PO SCH ×2 (09:25→22:09)
[2018-07-18] MEDS: ALLOPURINOL 300 MG TABLET PO SCH (09:25)
[2018-07-18] MEDS: COLCHICINE 0.6 MG CAPSULE PO SCH (09:25)
[2018-07-18] MEDS: PANTOPRAZOLE 40 MG TABLET PO SCH (09:25)
[2018-07-19] MEDS: ALBUTEROL/IPRATROPIUM 3 ML NEB RESP TX SCH ×2 (00:25→07:58)
[2018-07-19] MEDS: PIPERACILLIN/TAZOBACTAM 3,375 MG in SODIUM CHLORIDE 0.9% 100 ML IV SCH (05:34)
[2018-07-19 06:57] LABS: Basophils % 0.1 % (0.0-0.8); Hematocrit 27.2 VOL% (42.0-52.0); Hemoglobin 8.9 GM/DL (14.0-18.0); Immature Granulocytes % 2.4 %; Immature Granulocytes Absolute 0.34 #; Lymphocytes # 0.8 10*3/uL (1.4-4.0); Lymphocytes % 5.8 % (21.2-54.2); Mean Corpuscular HGB Conc 32.7 GM/DL (32-36); Mean Corpuscular Volume 97.8 FL (87-102); Monocytes % 3.6 % (1.7-12.7); NRBC # 0.05 10*3/uL; Neutrophils % 88.1 % (38.7-73.9); Platelet Count 188 T/CUMM (130-400); Red Blood Count 2.78 MC/CUMM (3.8-5.5); Red Cell Distribution Width 15.7 % (9.3-17.3); White Blood Count 14.4 T/CUMM (4-12)
[2018-07-19 07:00] LABS: INR 2.7
[2018-07-19 07:06] LABS: PT Patient Result 28.8 SECS
[2018-07-19 07:12] VITALS: BP 125/64
[2018-07-19 07:31] LABS: Osmolality,Calculated 288.5 MOS/KG (273-304)
[2018-07-19] MEDS: COLCHICINE 0.6 MG CAPSULE PO SCH (08:02)
[2018-07-19] MEDS: ALLOPURINOL 300 MG TABLET PO SCH (08:02)
[2018-07-19] MEDS: CARVEDILOL 25 MG TABLET PO SCH (08:02)
[2018-07-19] MEDS: PANTOPRAZOLE 40 MG TABLET PO SCH (08:02)
[2018-07-19] MEDS ORDERED: LEVOFLOXACIN 500 MG TABLET PO SCH (08:30)
== END 2018-07-19 10:45 | disposition home or self-care (01) ==
LOC: EDUNIT# → EDBD → N.ED 21:42 → N.EDINP 21:42 → SUATTDRO 22:45 → N.5E 23:12 → SUATTDRO 07-17 00:46
PROVIDERS: ADMIT Internal Medicine; ATTEND Family Medicine

== ENCOUNTER 2019-01-28 11:48 | Inpatient (IN) ==
[2019-01-28 13:27] LABS: Basophils # 0.1 10*3/uL (0.0-0.2); Basophils % 0.6 % (0.0-0.8); Eosinophils # 0.3 10*3/uL (0.0-0.87); Eosinophils % 2.2 % (0.00-10.9); Hematocrit 40.5 VOL% (42.0-52.0); Hemoglobin 13.5 GM/DL (14.0-18.0); Immature Granulocytes % 0.5 %; Immature Granulocytes Absolute 0.06 #; Lymphocytes # 1.2 10*3/uL (1.4-4.0); Lymphocytes % 9.6 % (21.2-54.2); Mean Corpuscular HGB Conc 33.3 GM/DL (32-36); Mean Corpuscular Volume 96.9 FL (87-102); Mean Platelet Volume 13.5 FL (9.6-12.0); Monocytes % 5.1 % (1.7-12.7); Platelet Count 110 T/CUMM (130-400); Red Blood Count 4.18 MC/CUMM (3.8-5.5); Red Cell Distribution Width 15.4 % (9.3-17.3); White Blood Count 12.3 T/CUMM (4-12)
[2019-01-28 13:36] LABS: INR 2.9
[2019-01-28 13:40] LABS: PT Patient Result 31.2 SECS (9.6-12.2); Partial Thromboplastin Time 43.1 SECS (20.8-36.0)
[2019-01-28 13:49] LABS: Alanine Aminotransferase 21 U/L (16-61); Alkaline Phosphatase 63 U/L (45-117); Aspartate Amino Transferase 30 U/L (0-37); Blood Urea Nitrogen 26 MG/DL (7-18); Calcium 9.5 MG/DL (8.5-10.1); Estimated Glom Filtration Rate 34 ML/MIN; Glucose 83 MG/DL (74-106); Osmolality,Calculated 280.5 MOS/KG (273-304); Total Protein 8.5 G/DL (6.4-8.3); Troponin I < 0.015 NG/ML (0.00-0.045)
[2019-01-28] MEDS ORDERED: methylPREDNISolone SOD SUC 125 MG/2 ML VIAL IV STA (14:14)
[2019-01-28] MEDS ORDERED: ALBUTEROL/IPRATROPIUM 3 ML NEB RESP TX STA (14:14)
[2019-01-28] MEDS ORDERED: cefTRIAXone 1,000 MG in SODIUM CHLORIDE 0.9% 100 ML IV STA (14:14)
[2019-01-28] MEDS ORDERED: MORPHINE 4 MG/1 ML VIAL IV ONE (15:15)
[2019-01-28] MEDS ORDERED: ONDANSETRON 4 MG/2 ML VIAL IV STA (15:15)
[2019-01-28] MEDS ORDERED: ACETAMINOPHEN 325 MG TABLET PO PRN (15:44)
[2019-01-28] MEDS ORDERED: ONDANSETRON 4 MG/2 ML VIAL IV PRN (15:44)
[2019-01-28] MEDS ORDERED: guaiFENesin/DM ER 600-30 MG TABLET PO PRN (15:44)
[2019-01-28] MEDS ORDERED: ALBUTEROL/IPRATROPIUM 3 ML NEB RESP TX PRN (16:02)
[2019-01-28] MEDS: ENOXAPARIN 30 MG/0.3 ML SYRINGE SUBCUT SCH (18:35)
[2019-01-28] MEDS: ALBUTEROL 2.5 MG/3 ML NEB RESP TX SCH (19:43)
[2019-01-28] MEDS: BENZONATATE 100 MG CAPSULE PO SCH (21:02)
[2019-01-29] MEDS: ALBUTEROL 2.5 MG/3 ML NEB RESP TX SCH ×4 (00:42→19:33)
[2019-01-29 05:57] LABS: Basophils % 0.2 % (0.0-0.8); Hematocrit 34.8 VOL% (42.0-52.0); Hemoglobin 11.6 GM/DL (14.0-18.0); Immature Granulocytes % 0.9 %; Immature Granulocytes Absolute 0.05 #; Lymphocytes # 0.5 10*3/uL (1.4-4.0); Lymphocytes % 9.4 % (21.2-54.2); Mean Corpuscular HGB Conc 33.3 GM/DL (32-36); Mean Corpuscular Volume 97.5 FL (87-102); Mean Platelet Volume 14.5 FL (9.6-12.0); Monocytes % 1.7 % (1.7-12.7); Neutrophils % 87.8 % (38.7-73.9); Platelet Count 105 T/CUMM (130-400); Red Blood Count 3.57 MC/CUMM (3.8-5.5); White Blood Count 5.7 T/CUMM (4-12)
[2019-01-29 06:15] LABS: Calcium 9.3 MG/DL (8.5-10.1); Osmolality,Calculated 285.7 MOS/KG (273-304)
[2019-01-29 06:23] LABS: Hypochromasia 1+; Platelet Estimate Decreased
[2019-01-29] MEDS: BENZONATATE 100 MG CAPSULE PO SCH ×3 (09:15→20:38)
[2019-01-29] MEDS: PANTOPRAZOLE 40 MG TABLET PO SCH (09:16)
[2019-01-29 09:41] LABS: Apearance,Urine CLEAR (Clear); Bacteria,Urine Occasional /HPF (Few); Bilirubin,Urine Negative (Negative); Blood, Urine Small mg/dL (Negative); Glucose,Urine (UA) >=500 mg/dL (Negative); Ketones,Urine Negative (Negative); Nitrite,Urine Negative (Negative); Protein,Urine >=500 MG/DL; RBC,Urine 2 /HPF (0-4); Squamous Epithelial Cell,Urine Occasional /HPF (0-10); Urine Color Yellow (Yellow); Urine Specific Gravity 1.021 (1.001-1.035); Urine Urobilinogen < 2.0 EU/DL (0.2-1.0); WBC,Urine <1 /HPF (0-6)
[2019-01-29] MEDS: carvediloL 25 MG TABLET PO SCH ×2 (11:59→20:38)
[2019-01-29] MEDS ORDERED: ALBUTEROL 2.5 MG/3 ML NEB RESP TX PRN (15:31)
[2019-01-29] MEDS ORDERED: SODIUM CHLORIDE 0.9% 1,000 ML IV SCH (16:00)
[2019-01-29] MEDS ORDERED: DOCUSATE/SENNA 50-8.6 MG TABLET PO PRN (16:11)
[2019-01-29] MEDS: ENOXAPARIN 30 MG/0.3 ML SYRINGE SUBCUT SCH (16:13)
[2019-01-29] MEDS: cefTRIAXone 1,000 MG in SYRINGE 1 EACH IV SCH (16:18)
[2019-01-29] MEDS: AZITHROMYCIN INJ 500 MG in SODIUM CHLORIDE 0.9% 250 ML IV SCH (16:22)
[2019-01-29] MEDS: WARFARIN 2.5 MG TABLET PO SCH (18:59)
[2019-01-29] MEDS: BUDESONIDE/FORMOTEROL 160-4.5 INHALER 6 GM INH SCH (20:38)
[2019-01-29] MEDS: POLYETHYLENE GLYCOL POWDER 17 GM PACK PO SCH (20:38)
[2019-01-30] MEDS: ALBUTEROL 2.5 MG/3 ML NEB RESP TX SCH ×4 (00:37→18:50)
[2019-01-30 05:38] LABS: Basophils % 0.1 % (0.0-0.8); Eosinophils # 0.1 10*3/uL (0.0-0.87); Eosinophils % 1.6 % (0.00-10.9); Hematocrit 31.5 VOL% (42.0-52.0); Hemoglobin 10.2 GM/DL (14.0-18.0); Immature Granulocytes % 0.5 %; Immature Granulocytes Absolute 0.04 #; Lymphocytes # 1.4 10*3/uL (1.4-4.0); Lymphocytes % 15.6 % (21.2-54.2); Mean Corpuscular HGB Conc 32.4 GM/DL (32-36); Mean Corpuscular Volume 98.4 FL (87-102); Monocytes % 7.1 % (1.7-12.7); Neutrophils % 75.1 % (38.7-73.9); Red Cell Distribution Width 15.4 % (9.3-17.3); White Blood Count 8.7 T/CUMM (4-12)
[2019-01-30 05:39] LABS: Platelet Count 83 T/CUMM (130-400)
[2019-01-30 05:43] LABS: INR 2.6
[2019-01-30 05:58] LABS: Hypochromasia 1+; Ovalocytes Slight; Platelet Estimate Decreased
[2019-01-30 06:00] LABS: Calcium 8.9 MG/DL (8.5-10.1); Osmolality,Calculated 290.3 MOS/KG (273-304)
[2019-01-30 06:24] LABS: PT Patient Result 27.7 SECS (9.6-12.2)
[2019-01-30] MEDS: POLYETHYLENE GLYCOL POWDER 17 GM PACK PO SCH ×2 (08:26→21:26)
[2019-01-30] MEDS: BENZONATATE 100 MG CAPSULE PO SCH ×3 (08:26→21:25)
[2019-01-30] MEDS: BUDESONIDE/FORMOTEROL 160-4.5 INHALER 6 GM INH SCH ×2 (08:27→21:26)
[2019-01-30] MEDS: carvediloL 25 MG TABLET PO SCH ×2 (08:27→21:25)
[2019-01-30] MEDS: PANTOPRAZOLE 40 MG TABLET PO SCH (08:27)
[2019-01-30] MEDS: cefTRIAXone 1,000 MG in SYRINGE 1 EACH IV SCH (15:45)
[2019-01-30] MEDS: AZITHROMYCIN INJ 500 MG in SODIUM CHLORIDE 0.9% 250 ML IV SCH (15:45)
[2019-01-30] MEDS: ENOXAPARIN 30 MG/0.3 ML SYRINGE SUBCUT SCH ×2 (15:46→15:48)
[2019-01-30] MEDS: WARFARIN 2.5 MG TABLET PO SCH (17:12)
[2019-01-31] MEDS: ALBUTEROL 2.5 MG/3 ML NEB RESP TX SCH ×4 (00:20→20:29)
[2019-01-31 06:07] LABS: Basophils % 0.4 % (0.0-0.8); Eosinophils # 0.2 10*3/uL (0.0-0.87); Eosinophils % 2.5 % (0.00-10.9); Hematocrit 31.3 VOL% (42.0-52.0); Hemoglobin 10.3 GM/DL (14.0-18.0); Immature Granulocytes % 0.4 %; Immature Granulocytes Absolute 0.03 #; Lymphocytes # 1.3 10*3/uL (1.4-4.0); Lymphocytes % 17.6 % (21.2-54.2); Mean Corpuscular HGB Conc 32.9 GM/DL (32-36); Mean Corpuscular Volume 98.1 FL (87-102); Mean Platelet Volume 14.5 FL (9.6-12.0); Monocytes % 10.2 % (1.7-12.7); Neutrophils % 68.9 % (38.7-73.9); Red Blood Count 3.19 MC/CUMM (3.8-5.5); Red Cell Distribution Width 15.3 % (9.3-17.3); White Blood Count 7.2 T/CUMM (4-12)
[2019-01-31 06:09] LABS: Platelet Count 89 T/CUMM (130-400)
[2019-01-31 06:17] LABS: INR 2.2
[2019-01-31 06:24] LABS: PT Patient Result 23.9 SECS (9.6-12.2)
[2019-01-31 06:31] LABS: Calcium 8.6 MG/DL (8.5-10.1); Osmolality,Calculated 285.4 MOS/KG (273-304)
[2019-01-31] MEDS: carvediloL 25 MG TABLET PO SCH ×2 (08:32→21:06)
[2019-01-31] MEDS: PANTOPRAZOLE 40 MG TABLET PO SCH (08:33)
[2019-01-31] MEDS: POLYETHYLENE GLYCOL POWDER 17 GM PACK PO SCH ×2 (08:33→21:06)
[2019-01-31] MEDS: BENZONATATE 100 MG CAPSULE PO SCH ×3 (08:33→21:06)
[2019-01-31] MEDS: BUDESONIDE/FORMOTEROL 160-4.5 INHALER 6 GM INH SCH ×2 (08:34→21:06)
[2019-01-31] MEDS: cefTRIAXone 1,000 MG in SYRINGE 1 EACH IV SCH (16:59)
[2019-01-31] MEDS: AZITHROMYCIN INJ 500 MG in SODIUM CHLORIDE 0.9% 250 ML IV SCH (16:59)
[2019-01-31] MEDS: predniSONE 20 MG TABLET PO SCH (16:59)
[2019-01-31] MEDS: WARFARIN 2.5 MG TABLET PO SCH (17:00)
[2019-02-01] MEDS: ALBUTEROL 2.5 MG/3 ML NEB RESP TX SCH ×3 (01:15→13:55)
[2019-02-01 05:39] LABS: INR 2.2
[2019-02-01 06:33] LABS: PT Patient Result 23.6 SECS (9.6-12.2)
[2019-02-01] MEDS: BUDESONIDE/FORMOTEROL 160-4.5 INHALER 6 GM INH SCH (09:41)
[2019-02-01] MEDS: carvediloL 25 MG TABLET PO SCH (09:41)
[2019-02-01] MEDS: predniSONE 20 MG TABLET PO SCH (09:42)
[2019-02-01] MEDS: BENZONATATE 100 MG CAPSULE PO SCH (09:43)
[2019-02-01] MEDS: POLYETHYLENE GLYCOL POWDER 17 GM PACK PO SCH (09:43)
[2019-02-01] MEDS: PANTOPRAZOLE 40 MG TABLET PO SCH (09:44)
[2019-02-01 11:40] VITALS: BP 144/80
== END 2019-02-01 14:44 | disposition home or self-care (01) | DRG 194 ==
LOC: N.ED 11:48 → INTOOBSV 15:44 → SUATTDRO 15:44 → N.EDINP 15:44 → N.5E 16:17
PROVIDERS: ADMIT Internal Medicine; ATTEND Internal Medicine

== ENCOUNTER 2019-02-28 10:38 | Inpatient (IN) ==
[2019-02-28] MEDS ORDERED: SODIUM CHLORIDE 0.9% 1,000 ML IV STA (11:18)
[2019-02-28 11:41] LABS: Basophils # 0.1 10*3/uL (0.0-0.2); Basophils % 1.3 % (0.0-0.8); Eosinophils # 0.1 10*3/uL (0.0-0.87); Eosinophils % 2.2 % (0.00-10.9); Hematocrit 38.2 VOL% (42.0-52.0); Hemoglobin 12.4 GM/DL (14.0-18.0); Immature Granulocytes % 0.4 %; Immature Granulocytes Absolute 0.02 #; Lymphocytes # 1.1 10*3/uL (1.4-4.0); Lymphocytes % 24.1 % (21.2-54.2); Mean Corpuscular HGB Conc 32.5 GM/DL (32-36); Mean Corpuscular Volume 100.3 FL (87-102); Mean Platelet Volume 13.8 FL (9.6-12.0); Monocytes % 9.5 % (1.7-12.7); Neutrophils % 62.5 % (38.7-73.9); Platelet Count 155 T/CUMM (130-400); Red Blood Count 3.81 MC/CUMM (3.8-5.5); Red Cell Distribution Width 16.8 % (9.3-17.3); White Blood Count 4.6 T/CUMM (4-12)
[2019-02-28 12:05] LABS: Albumin 3.5 G/DL (3.4-5.0); Bilirubin,Total 1.3 MG/DL (0.2-1.0); Calcium 9.5 MG/DL (8.5-10.1); Osmolality,Calculated 287.4 MOS/KG (273-304); Total Protein 7.7 G/DL (6.4-8.3)
[2019-02-28 12:46] LABS: Apearance,Urine CLEAR (Clear); Bilirubin,Urine Negative (Negative); Blood, Urine Small mg/dL (Negative); Glucose,Urine (UA) Negative (Negative); Ketones,Urine Negative (Negative); Mucus,Urine Occasional /LPF (Occasional); Nitrite,Urine Negative (Negative); Protein,Urine >=500 MG/DL; RBC,Urine 1 /HPF (0-4); Squamous Epithelial Cell,Urine Occasional /HPF (0-10); Urine Color Yellow (Yellow)
[2019-02-28] MEDS ORDERED: FUROSEMIDE 40 MG/4 ML VIAL IV STA (15:19)
[2019-02-28] MEDS ORDERED: ONDANSETRON 4 MG/2 ML VIAL IV PRN (16:12)
[2019-02-28] MEDS ORDERED: ENOXAPARIN 30 MG/0.3 ML SYRINGE SUBCUT SCH (16:30)
[2019-02-28 18:49] LABS: INR 4.2
[2019-02-28 18:50] LABS: PT Patient Result 45.5 SECS (9.6-12.2)
[2019-02-28] MEDS: carvediloL 25 MG TABLET PO SCH (20:33)
[2019-02-28] MEDS: LEVALBUTEROL 0.63 MG/3 ML NEB RESP TX SCH ×3 (20:55→23:49)
[2019-03-01] MEDS: LEVALBUTEROL 0.63 MG/3 ML NEB RESP TX SCH ×6 (04:34→22:50)
[2019-03-01 05:29] LABS: INR 3.8
[2019-03-01 05:35] LABS: Basophils # 0.1 10*3/uL (0.0-0.2); Eosinophils # 0.1 10*3/uL (0.0-0.87); Eosinophils % 1.8 % (0.00-10.9); Hematocrit 35.5 VOL% (42.0-52.0); Hemoglobin 11.4 GM/DL (14.0-18.0); Immature Granulocytes % 0.4 %; Immature Granulocytes Absolute 0.02 #; Lymphocytes # 1.4 10*3/uL (1.4-4.0); Lymphocytes % 28.6 % (21.2-54.2); Mean Corpuscular HGB Conc 32.1 GM/DL (32-36); Mean Corpuscular Volume 100.6 FL (87-102); Mean Platelet Volume 13.6 FL (9.6-12.0); Monocytes % 10.6 % (1.7-12.7); Neutrophils % 57.6 % (38.7-73.9); Platelet Count 161 T/CUMM (130-400); Red Blood Count 3.53 MC/CUMM (3.8-5.5); Red Cell Distribution Width 16.5 % (9.3-17.3); White Blood Count 4.9 T/CUMM (4-12)
[2019-03-01 05:39] LABS: PT Patient Result 40.8 SECS (9.6-12.2)
[2019-03-01 05:51] LABS: Calcium 8.6 MG/DL (8.5-10.1); Osmolality,Calculated 290.1 MOS/KG (273-304); Risk Ratio 3.97; Thyroid Stimulating Hormone 2.68 uIU/ml (0.358-3.74); VLDL CHOLESTEROL 17.2 MG/DL
[2019-03-01] MEDS ORDERED: WARFARIN 3 MG TABLET PO SCH (09:00)
[2019-03-01] MEDS ORDERED: FUROSEMIDE 40 MG/4 ML VIAL IV SCH (09:00)
[2019-03-01] MEDS: PANTOPRAZOLE 40 MG TABLET PO SCH (10:28)
[2019-03-01] MEDS: carvediloL 25 MG TABLET PO SCH ×2 (10:28→21:16)
[2019-03-01] MEDS ORDERED: AMIODARONE INJ 150 MG in DEXTROSE 5% 100 ML IV ONE (13:57)
[2019-03-01] MEDS ORDERED: AMIODARONE INJ 450 MG in DEXTROSE 5% 241 ML IV SCH (14:00)
[2019-03-01] MEDS: FUROSEMIDE 40 MG/4 ML VIAL IV SCH (17:28)
[2019-03-01] MEDS: AMIODARONE INJ 450 MG in DEXTROSE 5% 241 ML IV SCH (21:18)
[2019-03-02] MEDS: AMIODARONE INJ 450 MG in DEXTROSE 5% 241 ML IV SCH ×2 (01:26→18:47)
[2019-03-02] MEDS: LEVALBUTEROL 0.63 MG/3 ML NEB RESP TX SCH ×5 (02:51→19:40)
[2019-03-02] MEDS: ACETAMINOPHEN 325 MG TABLET PO PRN ×2 (05:03→23:21)
[2019-03-02 06:11] LABS: Basophils # 0.1 10*3/uL (0.0-0.2); Basophils % 1.2 % (0.0-0.8); Eosinophils # 0.1 10*3/uL (0.0-0.87); Eosinophils % 2.4 % (0.00-10.9); Immature Granulocytes % 0.5 %; Immature Granulocytes Absolute 0.02 #; Lymphocytes # 1.3 10*3/uL (1.4-4.0); Lymphocytes % 31.9 % (21.2-54.2); Mean Corpuscular HGB Conc 32.4 GM/DL (32-36); Mean Corpuscular Volume 100.3 FL (87-102); Mean Platelet Volume 13.8 FL (9.6-12.0); Monocytes % 11.4 % (1.7-12.7); Neutrophils % 52.6 % (38.7-73.9); Platelet Count 144 T/CUMM (130-400); Red Blood Count 3.39 MC/CUMM (3.8-5.5); Red Cell Distribution Width 16.3 % (9.3-17.3); White Blood Count 4.1 T/CUMM (4-12)
[2019-03-02 06:17] LABS: INR 4.6
[2019-03-02 06:25] LABS: PT Patient Result 49.1 SECS (9.6-12.2)
[2019-03-02 06:28] LABS: Albumin 2.9 G/DL (3.4-5.0); Bilirubin,Total 0.9 MG/DL (0.2-1.0); Calcium 8.6 MG/DL (8.5-10.1); Osmolality,Calculated 292.3 MOS/KG (273-304); Total Protein 6.7 G/DL (6.4-8.3)
[2019-03-02] MEDS: FUROSEMIDE 40 MG/4 ML VIAL IV SCH ×2 (09:31→17:50)
[2019-03-02] MEDS: PANTOPRAZOLE 40 MG TABLET PO SCH (09:32)
[2019-03-02] MEDS: carvediloL 25 MG TABLET PO SCH ×2 (09:32→21:32)
[2019-03-02] MEDS: ALBUTEROL/IPRATROPIUM 3 ML NEB RESP TX SCH (19:40)
[2019-03-03] MEDS: LEVALBUTEROL 0.63 MG/3 ML NEB RESP TX SCH ×5 (00:01→19:10)
[2019-03-03] MEDS: ALBUTEROL/IPRATROPIUM 3 ML NEB RESP TX SCH ×2 (01:11→07:53)
[2019-03-03] MEDS: AMIODARONE INJ 450 MG in DEXTROSE 5% 241 ML IV SCH ×2 (02:28→16:34)
[2019-03-03 06:21] LABS: Bilirubin,Total 0.9 MG/DL (0.2-1.0); Calcium 8.5 MG/DL (8.5-10.1); Total Protein 6.6 G/DL (6.4-8.3)
[2019-03-03 06:22] LABS: INR 3.6
[2019-03-03 07:10] LABS: PT Patient Result 38.3 SECS (9.6-12.2)
[2019-03-03] MEDS: carvediloL 25 MG TABLET PO SCH ×2 (08:55→21:42)
[2019-03-03] MEDS: PANTOPRAZOLE 40 MG TABLET PO SCH (08:55)
[2019-03-03] MEDS: FUROSEMIDE 40 MG/4 ML VIAL IV SCH ×2 (08:55→16:18)
[2019-03-03] MEDS: ACETAMINOPHEN 325 MG TABLET PO PRN (08:55)
[2019-03-03] MEDS: IPRATROPIUM 500 MCG/2.5 ML NEB RESP TX SCH ×2 (12:48→19:10)
[2019-03-03] MEDS: AMIODARONE 200 MG TABLET PO SCH (21:41)
[2019-03-04] MEDS: LEVALBUTEROL 0.63 MG/3 ML NEB RESP TX SCH ×4 (00:05→20:44)
[2019-03-04] MEDS: IPRATROPIUM 500 MCG/2.5 ML NEB RESP TX SCH ×4 (00:05→20:44)
[2019-03-04 05:02] LABS: INR 3.2
[2019-03-04 05:04] LABS: PT Patient Result 34.4 SECS (9.6-12.2)
[2019-03-04 05:15] LABS: Calcium 8.6 MG/DL (8.5-10.1); Osmolality,Calculated 285.1 MOS/KG (273-304)
[2019-03-04] MEDS: carvediloL 25 MG TABLET PO SCH ×2 (09:23→21:29)
[2019-03-04] MEDS: AMIODARONE 200 MG TABLET PO SCH ×2 (09:23→21:28)
[2019-03-04] MEDS: PANTOPRAZOLE 40 MG TABLET PO SCH (09:23)
[2019-03-04] MEDS: FUROSEMIDE 40 MG/4 ML VIAL IV SCH ×2 (09:23→15:30)
[2019-03-04] MEDS: AMIODARONE INJ 450 MG in DEXTROSE 5% 241 ML IV SCH (09:24)
[2019-03-04] MEDS: ISOSORBIDE MONONITRATE 30 MG TABLET PO SCH (15:30)
[2019-03-04] MEDS: hydrALAZINE 10 MG TABLET PO SCH ×2 (15:30→21:28)
[2019-03-05] MEDS: IPRATROPIUM 500 MCG/2.5 ML NEB RESP TX SCH ×4 (01:08→20:55)
[2019-03-05] MEDS: LEVALBUTEROL 0.63 MG/3 ML NEB RESP TX SCH ×4 (01:08→20:55)
[2019-03-05 05:38] LABS: Basophils # 0.1 10*3/uL (0.0-0.2); Eosinophils # 0.1 10*3/uL (0.0-0.87); Eosinophils % 1.4 % (0.00-10.9); Hematocrit 31.3 VOL% (42.0-52.0); Hemoglobin 10.2 GM/DL (14.0-18.0); Immature Granulocytes Absolute 0.05 #; Lymphocytes # 1.4 10*3/uL (1.4-4.0); Lymphocytes % 28.3 % (21.2-54.2); Mean Corpuscular HGB Conc 32.6 GM/DL (32-36); Mean Corpuscular Volume 97.2 FL (87-102); Mean Platelet Volume 14.7 FL (9.6-12.0); Monocytes % 9.4 % (1.7-12.7); Neutrophils % 58.9 % (38.7-73.9); Platelet Count 132 T/CUMM (130-400); Red Blood Count 3.22 MC/CUMM (3.8-5.5); Red Cell Distribution Width 15.9 % (9.3-17.3); White Blood Count 4.9 T/CUMM (4-12)
[2019-03-05 05:42] LABS: Calcium 8.8 MG/DL (8.5-10.1); Osmolality,Calculated 283.2 MOS/KG (273-304)
[2019-03-05] MEDS: hydrALAZINE 10 MG TABLET PO SCH ×3 (08:16→20:20)
[2019-03-05] MEDS: AMIODARONE 200 MG TABLET PO SCH ×2 (08:17→20:19)
[2019-03-05] MEDS: ISOSORBIDE MONONITRATE 30 MG TABLET PO SCH (08:17)
[2019-03-05] MEDS: carvediloL 25 MG TABLET PO SCH ×2 (08:17→20:20)
[2019-03-05] MEDS: FUROSEMIDE 40 MG/4 ML VIAL IV SCH (08:17)
[2019-03-05] MEDS: PANTOPRAZOLE 40 MG TABLET PO SCH (08:17)
[2019-03-05] MEDS ORDERED: ALBUTEROL/IPRATROPIUM 3 ML NEB RESP TX STA (10:18)
[2019-03-06] MEDS: LEVALBUTEROL 0.63 MG/3 ML NEB RESP TX SCH ×4 (01:42→19:38)
[2019-03-06] MEDS: IPRATROPIUM 500 MCG/2.5 ML NEB RESP TX SCH ×4 (01:42→19:38)
[2019-03-06 06:04] LABS: Basophils # 0.1 10*3/uL (0.0-0.2); Basophils % 1.1 % (0.0-0.8); Eosinophils # 0.1 10*3/uL (0.0-0.87); Eosinophils % 1.3 % (0.00-10.9); Hemoglobin 10.2 GM/DL (14.0-18.0); Immature Granulocytes % 1.5 %; Immature Granulocytes Absolute 0.07 #; Lymphocytes # 1.1 10*3/uL (1.4-4.0); Lymphocytes % 24.5 % (21.2-54.2); Mean Corpuscular HGB Conc 32.9 GM/DL (32-36); Mean Corpuscular Volume 96.9 FL (87-102); Mean Platelet Volume 14.7 FL (9.6-12.0); Monocytes % 11.5 % (1.7-12.7); Neutrophils % 60.1 % (38.7-73.9); Platelet Count 128 T/CUMM (130-400); Red Cell Distribution Width 15.8 % (9.3-17.3); White Blood Count 4.6 T/CUMM (4-12)
[2019-03-06 06:26] LABS: Calcium 8.6 MG/DL (8.5-10.1); Osmolality,Calculated 279.5 MOS/KG (273-304)
[2019-03-06] MEDS: AMIODARONE 200 MG TABLET PO SCH ×2 (09:11→20:24)
[2019-03-06] MEDS: ISOSORBIDE MONONITRATE 30 MG TABLET PO SCH (09:11)
[2019-03-06] MEDS: hydrALAZINE 10 MG TABLET PO SCH ×3 (09:12→20:24)
[2019-03-06] MEDS: PANTOPRAZOLE 40 MG TABLET PO SCH (09:12)
[2019-03-06] MEDS: carvediloL 25 MG TABLET PO SCH ×2 (09:15→20:24)
[2019-03-06 11:17] LABS: INR 2.1
[2019-03-06 11:22] LABS: PT Patient Result 22.3 SECS (9.6-12.2)
[2019-03-07] MEDS: IPRATROPIUM 500 MCG/2.5 ML NEB RESP TX SCH ×4 (00:11→19:30)
[2019-03-07] MEDS: LEVALBUTEROL 0.63 MG/3 ML NEB RESP TX SCH ×4 (00:11→19:30)
[2019-03-07 03:56] LABS: INR 1.9
[2019-03-07 04:16] LABS: Calcium 8.6 MG/DL (8.5-10.1); Osmolality,Calculated 276.8 MOS/KG (273-304)
[2019-03-07] MEDS: carvediloL 25 MG TABLET PO SCH ×2 (08:50→20:42)
[2019-03-07] MEDS: ISOSORBIDE MONONITRATE 30 MG TABLET PO SCH (08:50)
[2019-03-07] MEDS: AMIODARONE 200 MG TABLET PO SCH ×2 (08:50→20:42)
[2019-03-07] MEDS: PANTOPRAZOLE 40 MG TABLET PO SCH (08:50)
[2019-03-07] MEDS: hydrALAZINE 10 MG TABLET PO SCH ×3 (08:50→20:42)
[2019-03-07] MEDS ORDERED: ALUMINUM/MAGNES/SIMETH MAX STR 30 ML UDCUP PO PRN (18:50)
[2019-03-08] MEDS: IPRATROPIUM 500 MCG/2.5 ML NEB RESP TX SCH ×4 (00:22→20:07)
[2019-03-08] MEDS: LEVALBUTEROL 0.63 MG/3 ML NEB RESP TX SCH ×4 (00:22→20:07)
[2019-03-08 04:46] LABS: INR 1.5; PT Patient Result 16.7 SECS (9.6-12.2)
[2019-03-08 05:07] LABS: Calcium 9.1 MG/DL (8.5-10.1); Osmolality,Calculated 283.1 MOS/KG (273-304)
[2019-03-08] MEDS: carvediloL 25 MG TABLET PO SCH ×2 (09:49→20:59)
[2019-03-08] MEDS: AMIODARONE 200 MG TABLET PO SCH ×2 (09:49→20:59)
[2019-03-08] MEDS: hydrALAZINE 10 MG TABLET PO SCH ×3 (09:49→20:59)
[2019-03-08] MEDS: PANTOPRAZOLE 40 MG TABLET PO SCH (09:49)
[2019-03-08] MEDS: ISOSORBIDE MONONITRATE 30 MG TABLET PO SCH (09:49)
[2019-03-09] MEDS: IPRATROPIUM 500 MCG/2.5 ML NEB RESP TX SCH ×4 (01:09→20:28)
[2019-03-09] MEDS: LEVALBUTEROL 0.63 MG/3 ML NEB RESP TX SCH ×4 (01:09→20:28)
[2019-03-09 05:13] LABS: INR 1.4; PT Patient Result 14.8 SECS (9.6-12.2)
[2019-03-09] MEDS ORDERED: INDOCYANINE GREEN 25 MG VIAL IV ONE (06:30)
[2019-03-09] MEDS: hydrALAZINE 10 MG TABLET PO SCH ×3 (08:45→20:30)
[2019-03-09] MEDS: ISOSORBIDE MONONITRATE 30 MG TABLET PO SCH (08:45)
[2019-03-09] MEDS: PANTOPRAZOLE 40 MG TABLET PO SCH (08:45)
[2019-03-09] MEDS: carvediloL 25 MG TABLET PO SCH ×2 (08:45→20:30)
[2019-03-09] MEDS: AMIODARONE 200 MG TABLET PO SCH ×2 (08:45→20:30)
[2019-03-09] MEDS ORDERED: TISSUE ADHESIVE 1 EACH APPLICATOR TOP ONE (09:07)
[2019-03-09] MEDS ORDERED: BUPIVACAINE MPF 0.25% 30 ML VIAL ONE (09:07)
[2019-03-09] MEDS ORDERED: LIDOCAINE 1%/EPI INJ 20 ML VIAL ONE (09:07)
[2019-03-09] MEDS ORDERED: HEPARIN/NACL 0.9% 2 UNITS/ML 500 ML IV ONE (09:32)
[2019-03-09] MEDS: LACTATED RINGERS 1,000 ML IV SCH (09:35)
[2019-03-09 10:55] LABS: Basophils # 0.1 10*3/uL (0.0-0.2); Basophils % 1.4 % (0.0-0.8); Eosinophils # 0.1 10*3/uL (0.0-0.87); Eosinophils % 1.2 % (0.00-10.9); Hematocrit 31.2 VOL% (42.0-52.0); Hemoglobin 10.1 GM/DL (14.0-18.0); Immature Granulocytes % 0.7 %; Immature Granulocytes Absolute 0.03 #; Lymphocytes # 0.8 10*3/uL (1.4-4.0); Lymphocytes % 18.5 % (21.2-54.2); Mean Corpuscular HGB Conc 32.4 GM/DL (32-36); Mean Corpuscular Volume 98.1 FL (87-102); Mean Platelet Volume 14.2 FL (9.6-12.0); Monocytes % 12.8 % (1.7-12.7); Neutrophils % 65.4 % (38.7-73.9); Platelet Count 126 T/CUMM (130-400); Red Blood Count 3.18 MC/CUMM (3.8-5.5); White Blood Count 4.2 T/CUMM (4-12)
[2019-03-09] MEDS ORDERED: SUGAMMADEX 200 MG/2 ML VIAL IV ONE (11:02)
[2019-03-09] MEDS ORDERED: LIDOCAINE 2% 5 ML VIAL ONE (11:15)
[2019-03-09] MEDS ORDERED: DESFLURANE 1 UNIT/15 MINUTE INH ONE (11:15)
[2019-03-09] MEDS ORDERED: KETAMINE 500 MG/10 ML VIAL ONE (11:16)
[2019-03-09] MEDS ORDERED: ETOMIDATE 40 MG/20 ML VIAL IV ONE (11:16)
[2019-03-09] MEDS ORDERED: MIDAZOLAM 2 MG/2 ML VIAL ONE (11:16)
[2019-03-09] MEDS ORDERED: GLYCOPYRROLATE 0.4 MG/2 ML VIAL ONE (11:16)
[2019-03-09] MEDS ORDERED: NEOSTIGMINE 10 MG/10 ML VIAL ONE (11:17)
[2019-03-09] MEDS ORDERED: ROCURONIUM 100 MG/10 ML VIAL IV ONE (11:17)
[2019-03-09] MEDS ORDERED: PHENYLEPHRINE 1 MG/10 ML SYRINGE IV ONE (11:17)
[2019-03-09 11:27] LABS: Calcium 8.5 MG/DL (8.5-10.1)
[2019-03-09 11:28] LABS: Osmolality,Calculated 282.1 MOS/KG (273-304)
[2019-03-09] MEDS: ACETAMINOPHEN 325 MG TABLET PO PRN (23:55)
[2019-03-10] MEDS: LEVALBUTEROL 0.63 MG/3 ML NEB RESP TX SCH ×4 (00:07→19:41)
[2019-03-10] MEDS: IPRATROPIUM 500 MCG/2.5 ML NEB RESP TX SCH ×4 (00:07→19:41)
[2019-03-10 03:26] LABS: Basophils # 0.1 10*3/uL (0.0-0.2); Eosinophils # 0.1 10*3/uL (0.0-0.87); Eosinophils % 1.4 % (0.00-10.9); Hematocrit 30.6 VOL% (42.0-52.0); Hemoglobin 10.2 GM/DL (14.0-18.0); Immature Granulocytes % 0.4 %; Immature Granulocytes Absolute 0.02 #; Lymphocytes # 0.5 10*3/uL (1.4-4.0); Lymphocytes % 11.2 % (21.2-54.2); Mean Corpuscular HGB Conc 33.3 GM/DL (32-36); Mean Corpuscular Volume 96.8 FL (87-102); Mean Platelet Volume 13.9 FL (9.6-12.0); Monocytes % 9.5 % (1.7-12.7); Neutrophils % 76.5 % (38.7-73.9); Platelet Count 118 T/CUMM (130-400); Red Blood Count 3.16 MC/CUMM (3.8-5.5); Red Cell Distribution Width 15.8 % (9.3-17.3); White Blood Count 4.8 T/CUMM (4-12)
[2019-03-10 03:46] LABS: Calcium 8.6 MG/DL (8.5-10.1); Osmolality,Calculated 284.8 MOS/KG (273-304)
[2019-03-10] MEDS: LACTATED RINGERS 1,000 ML IV SCH (07:09)
[2019-03-10] MEDS: AMIODARONE 200 MG TABLET PO SCH ×2 (08:25→20:52)
[2019-03-10] MEDS: hydrALAZINE 10 MG TABLET PO SCH ×3 (08:25→20:52)
[2019-03-10] MEDS: PANTOPRAZOLE 40 MG TABLET PO SCH (08:25)
[2019-03-10] MEDS: ISOSORBIDE MONONITRATE 30 MG TABLET PO SCH (08:25)
[2019-03-10] MEDS: carvediloL 25 MG TABLET PO SCH ×2 (08:25→20:52)
[2019-03-10] MEDS ORDERED: WARFARIN 3 MG TABLET PO SCH (18:00)
[2019-03-10] MEDS: ACETAMINOPHEN 325 MG TABLET PO PRN (18:26)
[2019-03-11] MEDS: IPRATROPIUM 500 MCG/2.5 ML NEB RESP TX SCH ×2 (01:06→08:32)
[2019-03-11] MEDS: LEVALBUTEROL 0.63 MG/3 ML NEB RESP TX SCH ×2 (01:06→08:32)
[2019-03-11 05:03] LABS: INR 1.4; PT Patient Result 14.7 SECS (9.6-12.2)
[2019-03-11 05:08] LABS: Calcium 8.7 MG/DL (8.5-10.1); Osmolality,Calculated 280.8 MOS/KG (273-304)
[2019-03-11] MEDS ORDERED: MAGNESIUM HYDROXIDE SUSP 30 ML UDCUP PO ONE (08:50)
[2019-03-11] MEDS: PANTOPRAZOLE 40 MG TABLET PO SCH (08:51)
[2019-03-11] MEDS: carvediloL 25 MG TABLET PO SCH (08:51)
[2019-03-11] MEDS: AMIODARONE 200 MG TABLET PO SCH (08:51)
[2019-03-11] MEDS: ACETAMINOPHEN 325 MG TABLET PO PRN (08:51)
[2019-03-11] MEDS: hydrALAZINE 10 MG TABLET PO SCH (08:51)
[2019-03-11] MEDS: ISOSORBIDE MONONITRATE 30 MG TABLET PO SCH (08:51)
[2019-03-11 12:01] VITALS: BP 95/36
== END 2019-03-11 12:33 | disposition home or self-care (01) | DRG 987 ==
LOC: N.ED 10:38 → SUATTDRO 16:10 → N.EDINP 16:10 → N.2E 17:34 → N.TELEN 03-01 15:22 → N.CC 03-09 12:18 → N.3E 03-10 09:23
PROVIDERS: ADMIT Internal Medicine; ATTEND Internal Medicine

== ENCOUNTER 2020-05-22 11:20 | Observation (INO) ==
[2020-05-22 12:48] LABS: Albumin 2.4 G/DL (3.4-5.0); Bilirubin,Total 0.7 MG/DL (0.2-1.0); Calcium 8.7 MG/DL (8.5-10.1); Potassium 4.1 MMOL/L (3.5-5.1); Total Protein 7.2 G/DL (5.0-7.5)
[2020-05-22 12:59] LABS: Basophils # 0.1 10*3/uL (0.0-0.2); Basophils % 0.9 % (0.0-0.8); Eosinophils # 0.3 10*3/uL (0.0-0.87); Eosinophils % 4.4 % (0.00-10.9); Hematocrit 24.3 VOL% (42.0-52.0); Hemoglobin 7.7 GM/DL (14.0-18.0); Immature Granulocytes % 0.6 %; Immature Granulocytes Absolute 0.04 #; Lymphocytes % 14.1 % (21.2-54.2); Mean Corpuscular HGB Conc 31.7 GM/DL (32-36); Mean Corpuscular Volume 103.4 FL (87-102); Monocytes % 4.3 % (1.7-12.7); Neutrophils % 75.7 % (38.7-73.9); Red Blood Count 2.35 MC/CUMM (3.8-5.5); Red Cell Distribution Width 18.7 % (9.3-17.3); White Blood Count 6.8 T/CUMM (4-12)
[2020-05-22 13:02] LABS: Platelet Count 83 T/CUMM (130-400)
[2020-05-22 13:27] LABS: Bacteria,Urine Occasional /HPF (Few); Bilirubin,Urine Negative (Negative); Blood, Urine Negative (Negative); Glucose,Urine (UA) Negative (Negative); Hyaline Casts,Urine 1 /LPF (0-3); Ketones,Urine Negative (Negative); Mucus,Urine Occasional /LPF (Occasional); Nitrite,Urine Negative (Negative); Protein,Urine 100 MG/DL; RBC,Urine 1 /HPF (0-4); Squamous Epithelial Cell,Urine Occasional /HPF (0-10); Urine Appearance Slightly Hazy (Clear); Urine Color Yellow (Yellow); Urine Specific Gravity 1.014 (1.001-1.035); WBC,Urine 4 /HPF (0-6)
[2020-05-22 13:54] LABS: Eosinophils 1 % (0-10); Lymphocytes 16 % (20-55); Segmented Neutrophils 83 % (50-85); Total Cells Counted 100
[2020-05-22 13:55] LABS: Anisocytosis Slight; Hypochromasia Slight; Microcytosis Slight
[2020-05-22 13:56] LABS: Platelet Estimate Decreased
[2020-05-22 13:59] LABS: INR 1.8; PT Patient Result 19.2 SECS (9.8-11.9)
[2020-05-22] MEDS ORDERED: SODIUM CHLORIDE 0.9% 1,000 ML IV PRN (15:30)
[2020-05-22] MEDS ORDERED: hydrALAZINE 20 MG/1 ML VIAL IV PRN (15:32)
[2020-05-22] MEDS ORDERED: GLUCAGON 1 MG VIAL IM PRN ×2 (15:32→15:35)
[2020-05-22] MEDS ORDERED: ONDANSETRON 4 MG/2 ML VIAL IV PRN (15:32)
[2020-05-22] MEDS ORDERED: DEXTROSE 50% 25 GM/50 ML VIAL IV PRN ×2 (15:32→15:35)
[2020-05-22] MEDS ORDERED: ALBUTEROL 2.5 MG/3 ML NEB RESP TX PRN (15:36)
[2020-05-22] MEDS: SODIUM CHLORIDE 0.9% 1,000 ML IV SCH (16:00)
[2020-05-22 16:09] LABS: % Iron Saturation 11.9 % (18-50)
[2020-05-22] MEDS: LACTULOSE 20 GM/30 ML UDCUP PO SCH (17:20)
[2020-05-22 17:39] LABS: Hepatitis B Core IgM Quant 0.15 Index; Hepatitis B Surface Ag Quant < 0.10 Index; Hepatitis B Surface Ag Result Non-Reactive (NonReactive); Hepatitis C Virus Ab Quant 0.07 Index; Hepatitis C Virus Ab Result Non-Reactive (NonReactive)
[2020-05-22] MEDS: hydrALAZINE 10 MG TABLET PO SCH (22:37)
[2020-05-22] MEDS: carvediloL 25 MG TABLET PO SCH (22:38)
[2020-05-22] MEDS: BUDESONIDE/FORMOTEROL 160-4.5 INHALER 6 GM INH SCH (22:38)
[2020-05-23] MEDS: PANTOPRAZOLE 40 MG VIAL IV SCH ×3 (01:30→21:44)
[2020-05-23] MEDS: LACTULOSE 20 GM/30 ML UDCUP PO SCH ×7 (01:30→21:43)
[2020-05-23 06:49] LABS: Basophils # 0.1 10*3/uL (0.0-0.2); Basophils % 0.8 % (0.0-0.8); Eosinophils # 0.2 10*3/uL (0.0-0.87); Eosinophils % 3.8 % (0.00-10.9); Hematocrit 27.5 VOL% (42.0-52.0); Hemoglobin 8.9 GM/DL (14.0-18.0); Immature Granulocytes % 0.6 %; Immature Granulocytes Absolute 0.04 #; Lymphocytes # 0.8 10*3/uL (1.4-4.0); Mean Corpuscular HGB Conc 32.4 GM/DL (32-36); Mean Corpuscular Volume 102.2 FL (87-102); Monocytes % 4.3 % (1.7-12.7); Neutrophils % 77.5 % (38.7-73.9); Platelet Count 80 T/CUMM (130-400); Red Blood Count 2.69 MC/CUMM (3.8-5.5); Red Cell Distribution Width 18.8 % (9.3-17.3); White Blood Count 6.3 T/CUMM (4-12)
[2020-05-23 07:09] LABS: INR 1.9; PT Patient Result 19.8 SECS (9.8-11.9)
[2020-05-23 07:10] LABS: Eosinophils 7 % (0-10); Hypochromasia 1+; Lymphocytes 8 % (20-55); Microcytosis 1+; Ovalocytes Slight; Platelet Estimate Decreased; Segmented Neutrophils 81 % (50-85); Total Cells Counted 100
[2020-05-23 07:34] LABS: Albumin 2.4 G/DL (3.4-5.0); Bilirubin,Direct 0.41 MG/DL (0.0-0.20); Bilirubin,Indirect 1.3 MG/DL (0.0-1.0); Bilirubin,Total 1.7 MG/DL (0.2-1.0); Calcium 8.6 MG/DL (8.5-10.1); Ferritin 347.7 ng/ml (26-388); Osmolality,Calculated 276.7 MOS/KG (273-304); Potassium 4.1 MMOL/L (3.5-5.1); Thyroid Stimulating Hormone 3.56 uIU/ml (0.358-3.74); Total Protein 7.4 G/DL (5.0-7.5)
[2020-05-23] MEDS: hydrALAZINE 10 MG TABLET PO SCH ×2 (10:52→21:44)
[2020-05-23] MEDS: AMIODARONE 200 MG TABLET PO SCH (10:53)
[2020-05-23] MEDS: ISOSORBIDE MONONITRATE 30 MG TABLET PO SCH (10:53)
[2020-05-23] MEDS: carvediloL 25 MG TABLET PO SCH ×2 (10:53→21:44)
[2020-05-23] MEDS: BUDESONIDE/FORMOTEROL 160-4.5 INHALER 6 GM INH SCH ×2 (10:54→21:45)
[2020-05-23] MEDS: methylPREDNISolone SOD SUC 40 MG/1 ML VIAL IV SCH ×2 (12:30→21:43)
[2020-05-23] MEDS: BUMETANIDE 1 MG/4 ML VIAL IV SCH ×2 (12:57→16:15)
[2020-05-23] MEDS: BENZONATATE 100 MG CAPSULE PO PRN (13:01)
[2020-05-23] MEDS: SODIUM CHLORIDE 0.9% 1,000 ML IV SCH (13:10)
[2020-05-23] MEDS: ALBUTEROL/IPRATROPIUM 3 ML NEB RESP TX SCH ×2 (15:36→19:35)
[2020-05-23] MEDS ORDERED: WARFARIN 3 MG TABLET PO SCH (18:00)
[2020-05-23 19:35] LABS: Folate 6.5 NG/ML (5.38-24.0)
[2020-05-24] MEDS: ALBUTEROL/IPRATROPIUM 3 ML NEB RESP TX SCH ×4 (00:24→10:55)
[2020-05-24] MEDS: SODIUM CHLORIDE 0.9% 1,000 ML IV SCH ×2 (01:20→08:14)
[2020-05-24] MEDS: BENZONATATE 100 MG CAPSULE PO PRN (01:22)
[2020-05-24] MEDS: LACTULOSE 20 GM/30 ML UDCUP PO SCH ×3 (01:27→08:23)
[2020-05-24] MEDS: methylPREDNISolone SOD SUC 40 MG/1 ML VIAL IV SCH ×2 (03:20→11:23)
[2020-05-24] MEDS ORDERED: LACTULOSE 20 GM/30 ML UDCUP PO PRN (08:12)
[2020-05-24] MEDS: ISOSORBIDE MONONITRATE 30 MG TABLET PO SCH (08:13)
[2020-05-24] MEDS: hydrALAZINE 10 MG TABLET PO SCH (08:13)
[2020-05-24] MEDS: BUMETANIDE 1 MG/4 ML VIAL IV SCH (08:13)
[2020-05-24] MEDS: carvediloL 25 MG TABLET PO SCH (08:13)
[2020-05-24] MEDS: AMIODARONE 200 MG TABLET PO SCH (08:13)
[2020-05-24] MEDS: BUDESONIDE/FORMOTEROL 160-4.5 INHALER 6 GM INH SCH (08:20)
[2020-05-24] MEDS: PANTOPRAZOLE 40 MG VIAL IV SCH (08:20)
[2020-05-24 10:00] LABS: PT Patient Result 30.1 SECS (9.8-11.9)
[2020-05-24 10:01] LABS: Calcium 8.8 MG/DL (8.5-10.1); Potassium 3.9 MMOL/L (3.5-5.1)
[2020-05-24 11:19] VITALS: BP 143/65
[2020-05-24 11:28] LABS: Hematocrit 29.3 VOL% (42.0-52.0); Hemoglobin 9.4 GM/DL (14.0-18.0); Immature Granulocytes % 1.2 %; Immature Granulocytes Absolute 0.08 #; Lymphocytes # 0.5 10*3/uL (1.4-4.0); Lymphocytes % 8.4 % (21.2-54.2); Mean Corpuscular HGB Conc 32.1 GM/DL (32-36); Mean Corpuscular Volume 102.1 FL (87-102); Monocytes % 1.4 % (1.7-12.7); Platelet Count 115 T/CUMM (130-400); Red Blood Count 2.87 MC/CUMM (3.8-5.5); Red Cell Distribution Width 17.9 % (9.3-17.3); White Blood Count 6.4 T/CUMM (4-12)
[2020-05-24 12:23] LABS: Lymphocytes 4 % (20-55); Segmented Neutrophils 96 % (50-85); Total Cells Counted 100
[2020-05-24 12:25] LABS: Burr Cells 1+
[2020-05-24 12:26] LABS: Ovalocytes Few
[2020-05-24 12:27] LABS: Platelet Estimate Normal
== END 2020-05-24 14:29 | disposition home health service (06) ==
LOC: EDUNIT# → EDBD → N.ED 11:20 → INTOOBSV 15:32 → N.EDINP 15:32 → N.3E 17:07
PROVIDERS: ADMIT Internal Medicine; ATTEND Internal Medicine

== ENCOUNTER 2020-06-08 12:18 | Inpatient (IN) ==
[2020-06-08] MEDS ORDERED: SODIUM CHLORIDE 0.9% 1,000 ML IV STA (12:49)
[2020-06-08 13:26] LABS: Basophils % 0.4 % (0.0-0.8); Eosinophils # 0.1 10*3/uL (0.0-0.87); Eosinophils % 0.9 % (0.00-10.9); Hematocrit 22.3 VOL% (42.0-52.0); Hemoglobin 6.8 GM/DL (14.0-18.0); Immature Granulocytes % 0.9 %; Immature Granulocytes Absolute 0.07 #; Lymphocytes # 1.2 10*3/uL (1.4-4.0); Lymphocytes % 15.2 % (21.2-54.2); Mean Corpuscular HGB Conc 30.5 GM/DL (32-36); Mean Corpuscular Volume 104.2 FL (87-102); NRBC # 0.02 10*3/uL; Neutrophils % 78.6 % (38.7-73.9); Platelet Count 113 T/CUMM (130-400); Red Blood Count 2.14 MC/CUMM (3.8-5.5); Red Cell Distribution Width 18.6 % (9.3-17.3)
[2020-06-08 13:35] LABS: Albumin 2.4 G/DL (3.4-5.0); Bilirubin,Total 0.8 MG/DL (0.2-1.0); Calcium 8.5 MG/DL (8.5-10.1); Osmolality,Calculated 281.7 MOS/KG (273-304); Potassium 4.4 MMOL/L (3.5-5.1); Total Protein 7.1 G/DL (6.4-8.2)
[2020-06-08 13:55] LABS: Eosinophils 1 % (0-10); Lymphocytes 9 % (20-55); Segmented Neutrophils 89 % (50-85); Total Cells Counted 100
[2020-06-08 13:56] LABS: Platelet Estimate Adequate; Polychromasia Few
[2020-06-08 13:57] LABS: Anisocytosis 1+; Hypochromasia 1+; Macrocytosis 1+
[2020-06-08 14:27] LABS: INR 4.8
[2020-06-08 14:27] LABS: Bilirubin,Urine Negative (Negative); Blood, Urine Negative (Negative); Glucose,Urine (UA) Negative (Negative); Ketones,Urine Negative (Negative); Nitrite,Urine Negative (Negative); Protein,Urine >=500 MG/DL; RBC,Urine 1 /HPF (0-4); Squamous Epithelial Cell,Urine Occasional /HPF (0-10); Urine Appearance CLEAR (Clear); Urine Color Yellow (Yellow); Urine Specific Gravity 1.015 (1.001-1.035); Urine Urobilinogen < 2.0 EU/DL (0.2-1.0); WBC,Urine 1 /HPF (0-6)
[2020-06-08 14:29] LABS: PT Patient Result 47.6 SECS (9.8-11.9); Partial Thromboplastin Time 49.5 SECS (23.9-33.8)
[2020-06-08] MEDS ORDERED: GLUCAGON 1 MG VIAL IM PRN (15:02)
[2020-06-08] MEDS ORDERED: DEXTROSE 50% 25 GM/50 ML VIAL IV PRN (15:02)
[2020-06-08] MEDS ORDERED: hydrALAZINE 20 MG/1 ML VIAL IV PRN (15:02)
[2020-06-08] MEDS ORDERED: LACTULOSE 20 GM/30 ML UDCUP PO PRN (15:02)
[2020-06-08] MEDS ORDERED: ONDANSETRON 4 MG/2 ML VIAL IV PRN (15:02)
[2020-06-08] MEDS ORDERED: SODIUM CHLORIDE 0.9% 1,000 ML IV PRN (15:06)
[2020-06-08 15:20] LABS: Folate 11.1 NG/ML (5.38-24.0)
[2020-06-08] MEDS ORDERED: ALBUTEROL 2.5 MG/3 ML NEB RESP TX PRN (15:31)
[2020-06-08] MEDS ORDERED: FUROSEMIDE 40 MG/4 ML VIAL IV ONE (16:30)
[2020-06-08] MEDS: hydrALAZINE 10 MG TABLET PO SCH (20:55)
[2020-06-08] MEDS: carvediloL 25 MG TABLET PO SCH (20:55)
[2020-06-08] MEDS: BUDESONIDE/FORMOTEROL 160-4.5 INHALER 6 GM INH SCH (21:07)
[2020-06-09] MEDS ORDERED: FUROSEMIDE 40 MG/4 ML VIAL IV ONE (00:30)
[2020-06-09 05:40] LABS: Basophils # 0.1 10*3/uL (0.0-0.2); Basophils % 0.7 % (0.0-0.8); Eosinophils # 0.1 10*3/uL (0.0-0.87); Eosinophils % 1.7 % (0.00-10.9); Hematocrit 30.2 VOL% (42.0-52.0); Hemoglobin 9.6 GM/DL (14.0-18.0); Immature Granulocytes % 1.4 %; Immature Granulocytes Absolute 0.12 #; Lymphocytes # 1.2 10*3/uL (1.4-4.0); Lymphocytes % 13.9 % (21.2-54.2); Mean Corpuscular HGB Conc 31.8 GM/DL (32-36); Mean Corpuscular Volume 98.4 FL (87-102); Monocytes % 3.6 % (1.7-12.7); NRBC # 0.02 10*3/uL; Neutrophils % 78.7 % (38.7-73.9); Platelet Count 114 T/CUMM (130-400); Red Blood Count 3.07 MC/CUMM (3.8-5.5); Red Cell Distribution Width 19.9 % (9.3-17.3); White Blood Count 8.3 T/CUMM (4-12)
[2020-06-09 06:01] LABS: PT Patient Result 50.6 SECS (9.8-11.9); Partial Thromboplastin Time 52.3 SECS (23.9-33.8)
[2020-06-09 06:03] LABS: INR 5.1
[2020-06-09 06:14] LABS: Calcium 8.3 MG/DL (8.5-10.1); Osmolality,Calculated 283.4 MOS/KG (273-304); Potassium 4.8 MMOL/L (3.5-5.1)
[2020-06-09 06:30] LABS: Eosinophils 3 % (0-10); Lymphocytes 7 % (20-55); Segmented Neutrophils 88 % (50-85); Total Cells Counted 100
[2020-06-09 06:31] LABS: Polychromasia Slight
[2020-06-09 06:32] LABS: Ovalocytes Few
[2020-06-09 06:33] LABS: Platelet Estimate Adequate
[2020-06-09] MEDS ORDERED: FUROSEMIDE 40 MG/4 ML VIAL IV SCH ×2 (08:00→16:00)
[2020-06-09] MEDS: ISOSORBIDE MONONITRATE 30 MG TABLET PO SCH (08:35)
[2020-06-09] MEDS: hydrALAZINE 10 MG TABLET PO SCH ×3 (08:36→20:59)
[2020-06-09] MEDS: carvediloL 25 MG TABLET PO SCH ×2 (08:36→20:59)
[2020-06-09] MEDS ORDERED: PANTOPRAZOLE 40 MG TABLET PO SCH (09:00)
[2020-06-09] MEDS: BUDESONIDE/FORMOTEROL 160-4.5 INHALER 6 GM INH SCH ×2 (09:38→20:59)
[2020-06-09 14:21] LABS: Basophils # 0.1 10*3/uL (0.0-0.2); Basophils % 0.8 % (0.0-0.8); Eosinophils # 0.2 10*3/uL (0.0-0.87); Eosinophils % 2.4 % (0.00-10.9); Hematocrit 30.1 VOL% (42.0-52.0); Hemoglobin 9.9 GM/DL (14.0-18.0); Immature Granulocytes % 0.7 %; Immature Granulocytes Absolute 0.06 #; Mean Corpuscular HGB Conc 32.9 GM/DL (32-36); Mean Corpuscular Volume 96.2 FL (87-102); Mean Platelet Volume 14.4 FL (9.6-12.0); Monocytes % 3.7 % (1.7-12.7); NRBC # 0.04 10*3/uL; Neutrophils % 80.4 % (38.7-73.9); Platelet Count 126 T/CUMM (130-400); Red Blood Count 3.13 MC/CUMM (3.8-5.5); Red Cell Distribution Width 20.3 % (9.3-17.3); White Blood Count 8.4 T/CUMM (4-12)
[2020-06-09 14:36] LABS: Calcium 8.5 MG/DL (8.5-10.1); Osmolality,Calculated 276.1 MOS/KG (273-304); Potassium 4.6 MMOL/L (3.5-5.1)
[2020-06-09] MEDS: PANTOPRAZOLE 40 MG TABLET PO SCH (20:59)
[2020-06-09] MEDS: POTASSIUM CHLORIDE 20 MEQ TABLET PO SCH (20:59)
[2020-06-10 05:57] LABS: Basophils # 0.1 10*3/uL (0.0-0.2); Basophils % 0.7 % (0.0-0.8); Eosinophils # 0.2 10*3/uL (0.0-0.87); Eosinophils % 2.3 % (0.00-10.9); Hematocrit 30.1 VOL% (42.0-52.0); Hemoglobin 9.7 GM/DL (14.0-18.0); Immature Granulocytes % 0.8 %; Immature Granulocytes Absolute 0.08 #; Lymphocytes # 1.2 10*3/uL (1.4-4.0); Lymphocytes % 11.9 % (21.2-54.2); Mean Corpuscular HGB Conc 32.2 GM/DL (32-36); Mean Corpuscular Volume 97.1 FL (87-102); Mean Platelet Volume 14.4 FL (9.6-12.0); Monocytes % 2.8 % (1.7-12.7); NRBC # 0.02 10*3/uL; Neutrophils % 81.5 % (38.7-73.9); Platelet Count 114 T/CUMM (130-400); Red Cell Distribution Width 19.5 % (9.3-17.3); White Blood Count 9.7 T/CUMM (4-12)
[2020-06-10 06:16] LABS: Calcium 8.2 MG/DL (8.5-10.1); Osmolality,Calculated 277.8 MOS/KG (273-304); Potassium 4.2 MMOL/L (3.5-5.1)
[2020-06-10 06:36] LABS: Eosinophils 3 % (0-10); Hypochromasia 1+; Lymphocytes 11 % (20-55); Microcytosis 1+; Segmented Neutrophils 83 % (50-85); Total Cells Counted 100
[2020-06-10 08:12] LABS: INR 4.5
[2020-06-10 08:14] LABS: PT Patient Result 44.4 SECS (9.8-11.9)
[2020-06-10] MEDS: FUROSEMIDE 40 MG TABLET PO SCH (09:21)
[2020-06-10] MEDS: AMIODARONE 200 MG TABLET PO SCH (09:21)
[2020-06-10] MEDS: ISOSORBIDE MONONITRATE 30 MG TABLET PO SCH (09:21)
[2020-06-10] MEDS: POTASSIUM CHLORIDE 20 MEQ TABLET PO SCH ×2 (09:22→21:01)
[2020-06-10] MEDS: hydrALAZINE 10 MG TABLET PO SCH ×3 (09:22→21:01)
[2020-06-10] MEDS: carvediloL 25 MG TABLET PO SCH ×2 (09:22→21:02)
[2020-06-10] MEDS: PANTOPRAZOLE 40 MG TABLET PO SCH ×2 (09:22→21:02)
[2020-06-10] MEDS: BUDESONIDE/FORMOTEROL 160-4.5 INHALER 6 GM INH SCH ×2 (09:24→21:03)
[2020-06-10] MEDS: POLYETHYLENE GLYCOL POWDER 17 GM PACK PO SCH ×2 (13:58→21:03)
[2020-06-10] MEDS: DOCUSATE SODIUM 100 MG CAPSULE PO SCH ×2 (13:58→21:01)
[2020-06-11 07:11] LABS: INR 4.4; PT Patient Result 43.7 SECS (9.8-11.9)
[2020-06-11 07:14] LABS: Albumin 2.3 G/DL (3.4-5.0); Basophils # 0.1 10*3/uL (0.0-0.2); Basophils % 1.1 % (0.0-0.8); Calcium 8.5 MG/DL (8.5-10.1); Eosinophils # 0.3 10*3/uL (0.0-0.87); Eosinophils % 3.8 % (0.00-10.9); Hematocrit 29.1 VOL% (42.0-52.0); Hemoglobin 9.5 GM/DL (14.0-18.0); Immature Granulocytes Absolute 0.08 #; Lymphocytes # 1.2 10*3/uL (1.4-4.0); Lymphocytes % 13.7 % (21.2-54.2); Mean Corpuscular HGB Conc 32.6 GM/DL (32-36); NRBC # 0.02 10*3/uL; Neutrophils % 77.4 % (38.7-73.9); Osmolality,Calculated 267.5 MOS/KG (273-304); Potassium 4.6 MMOL/L (3.5-5.1); Red Blood Count 3.03 MC/CUMM (3.8-5.5); Red Cell Distribution Width 18.8 % (9.3-17.3); Total Protein 7.2 G/DL (6.4-8.2); White Blood Count 8.4 T/CUMM (4-12)
[2020-06-11 07:15] LABS: Platelet Count 84 T/CUMM (130-400)
[2020-06-11 07:18] LABS: Lymphocytes 7 % (20-55); Segmented Neutrophils 86 % (50-85); Total Cells Counted 100
[2020-06-11 07:19] LABS: Eosinophils 3 % (0-10); Hypochromasia 1+; Microcytosis 1+; Nucleated Red Blood Cells 1 (0-5); Platelet Estimate Decreased
[2020-06-11] MEDS: SODIUM CHLORIDE 0.9% 1,000 ML IV SCH ×2 (08:38→11:59)
[2020-06-11] MEDS ORDERED: ETOMIDATE 20 MG/10 ML VIAL IV ONE (09:46)
[2020-06-11] MEDS ORDERED: propofoL 200 MG/20 ML VIAL IV ONE (09:46)
[2020-06-11] MEDS ORDERED: LIDOCAINE 2% 5 ML VIAL ONE (09:46)
[2020-06-11] MEDS: POLYETHYLENE GLYCOL POWDER 17 GM PACK PO SCH ×2 (10:40→21:57)
[2020-06-11] MEDS: BUDESONIDE/FORMOTEROL 160-4.5 INHALER 6 GM INH SCH ×2 (10:40→21:58)
[2020-06-11] MEDS: FUROSEMIDE 40 MG TABLET PO SCH (10:41)
[2020-06-11] MEDS: DOCUSATE SODIUM 100 MG CAPSULE PO SCH ×2 (10:42→21:56)
[2020-06-11] MEDS: carvediloL 25 MG TABLET PO SCH ×2 (10:42→21:57)
[2020-06-11] MEDS: AMIODARONE 200 MG TABLET PO SCH (10:42)
[2020-06-11] MEDS: ISOSORBIDE MONONITRATE 30 MG TABLET PO SCH (10:42)
[2020-06-11] MEDS: hydrALAZINE 10 MG TABLET PO SCH ×3 (10:42→21:56)
[2020-06-11] MEDS: PANTOPRAZOLE 40 MG TABLET PO SCH ×2 (10:42→21:57)
[2020-06-11] MEDS: POTASSIUM CHLORIDE 20 MEQ TABLET PO SCH ×2 (10:43→21:57)
[2020-06-11] MEDS: NYSTATIN 500,000 UNIT/5 ML UDCUP SWISH/SWAL SCH ×3 (12:11→21:56)
[2020-06-12 05:20] LABS: Basophils # 0.1 10*3/uL (0.0-0.2); Basophils % 1.1 % (0.0-0.8); Eosinophils # 0.3 10*3/uL (0.0-0.87); Eosinophils % 3.1 % (0.00-10.9); Hematocrit 30.2 VOL% (42.0-52.0); Hemoglobin 9.7 GM/DL (14.0-18.0); Immature Granulocytes % 0.7 %; Immature Granulocytes Absolute 0.06 #; Lymphocytes # 1.1 10*3/uL (1.4-4.0); Mean Corpuscular HGB Conc 32.1 GM/DL (32-36); Mean Corpuscular Volume 95.9 FL (87-102); Monocytes % 3.9 % (1.7-12.7); Neutrophils % 78.2 % (38.7-73.9); Platelet Count 83 T/CUMM (130-400); Red Blood Count 3.15 MC/CUMM (3.8-5.5); Red Cell Distribution Width 18.6 % (9.3-17.3); White Blood Count 8.7 T/CUMM (4-12)
[2020-06-12 05:30] LABS: PT Patient Result 49.1 SECS (9.8-11.9)
[2020-06-12 05:41] LABS: Calcium 8.6 MG/DL (8.5-10.1); Osmolality,Calculated 270.4 MOS/KG (273-304); Potassium 4.8 MMOL/L (3.5-5.1)
[2020-06-12 05:44] LABS: Eosinophils 5 % (0-10); Hypochromasia 1+; Lymphocytes 10 % (20-55); Segmented Neutrophils 84 % (50-85); Total Cells Counted 100
[2020-06-12 05:45] LABS: Anisocytosis 1+; Microcytosis 1+
[2020-06-12] MEDS: FUROSEMIDE 40 MG TABLET PO SCH (08:37)
[2020-06-12] MEDS: ISOSORBIDE MONONITRATE 30 MG TABLET PO SCH (08:39)
[2020-06-12] MEDS: PANTOPRAZOLE 40 MG TABLET PO SCH ×2 (08:39→21:44)
[2020-06-12] MEDS: AMIODARONE 200 MG TABLET PO SCH (08:39)
[2020-06-12] MEDS: carvediloL 25 MG TABLET PO SCH ×2 (08:41→21:44)
[2020-06-12] MEDS: DOCUSATE SODIUM 100 MG CAPSULE PO SCH ×2 (08:41→21:44)
[2020-06-12] MEDS: POTASSIUM CHLORIDE 20 MEQ TABLET PO SCH ×2 (08:42→21:44)
[2020-06-12] MEDS: hydrALAZINE 10 MG TABLET PO SCH ×3 (08:43→21:44)
[2020-06-12] MEDS: NYSTATIN 500,000 UNIT/5 ML UDCUP SWISH/SWAL SCH ×4 (08:44→21:49)
[2020-06-12] MEDS: BUDESONIDE/FORMOTEROL 160-4.5 INHALER 6 GM INH SCH ×2 (08:44→21:49)
[2020-06-12] MEDS: POLYETHYLENE GLYCOL POWDER 17 GM PACK PO SCH ×2 (08:45→21:45)
[2020-06-12] MEDS ORDERED: FUROSEMIDE 40 MG/4 ML VIAL IV ONE (09:43)
[2020-06-12] MEDS: SODIUM CHLORIDE 0.9% 1,000 ML IV SCH (14:53)
[2020-06-13 05:48] LABS: Calcium 8.2 MG/DL (8.5-10.1); Osmolality,Calculated 270.4 MOS/KG (273-304); Potassium 4.6 MMOL/L (3.5-5.1)
[2020-06-13 05:53] LABS: INR 4.6; PT Patient Result 45.3 SECS (9.8-11.9)
[2020-06-13] MEDS ORDERED: PHYTONADIONE 10 MG/1 ML AMP SUBCUT ONE (07:52)
[2020-06-13] MEDS ORDERED: SODIUM CHLORIDE 0.9% 1,000 ML IV PRN ×2 (08:19→08:21)
[2020-06-13] MEDS: DOCUSATE SODIUM 100 MG CAPSULE PO SCH ×2 (08:27→20:32)
[2020-06-13] MEDS: ISOSORBIDE MONONITRATE 30 MG TABLET PO SCH (08:28)
[2020-06-13] MEDS: FUROSEMIDE 40 MG TABLET PO SCH (08:28)
[2020-06-13] MEDS: PANTOPRAZOLE 40 MG TABLET PO SCH ×2 (08:28→20:32)
[2020-06-13] MEDS: hydrALAZINE 10 MG TABLET PO SCH ×3 (08:28→20:31)
[2020-06-13] MEDS: POLYETHYLENE GLYCOL POWDER 17 GM PACK PO SCH ×2 (08:28→20:31)
[2020-06-13] MEDS: BUDESONIDE/FORMOTEROL 160-4.5 INHALER 6 GM INH SCH ×2 (08:28→20:33)
[2020-06-13] MEDS: POTASSIUM CHLORIDE 20 MEQ TABLET PO SCH ×2 (08:28→20:31)
[2020-06-13] MEDS: carvediloL 25 MG TABLET PO SCH ×2 (08:28→20:32)
[2020-06-13] MEDS ORDERED: FLUCONAZOLE INJ 200 MG in PREMIX 1 EACH IV ONE (09:00)
[2020-06-13] MEDS: ITRACONAZOLE 100 MG CAPSULE PO SCH (12:20)
[2020-06-14 05:08] LABS: Basophils # 0.1 10*3/uL (0.0-0.2); Basophils % 0.7 % (0.0-0.8); Eosinophils # 0.3 10*3/uL (0.0-0.87); Hematocrit 30.8 VOL% (42.0-52.0); Hemoglobin 9.8 GM/DL (14.0-18.0); Immature Granulocytes Absolute 0.08 #; Lymphocytes # 1.1 10*3/uL (1.4-4.0); Lymphocytes % 13.6 % (21.2-54.2); Mean Corpuscular HGB Conc 31.8 GM/DL (32-36); Neutrophils % 76.7 % (38.7-73.9); Platelet Count 87 T/CUMM (130-400); Red Blood Count 3.11 MC/CUMM (3.8-5.5); Red Cell Distribution Width 17.9 % (9.3-17.3); White Blood Count 8.3 T/CUMM (4-12)
[2020-06-14 05:25] LABS: INR 1.5; PT Patient Result 15.4 SECS (9.8-11.9)
[2020-06-14 05:39] LABS: Anisocytosis 1+; Eosinophils 5 % (0-10); Hypochromasia 1+; Lymphocytes 13 % (20-55); Microcytosis 1+; Platelet Estimate Decreased; Segmented Neutrophils 79 % (50-85); Total Cells Counted 100
[2020-06-14 05:40] LABS: Ovalocytes Slight
[2020-06-14 05:43] LABS: Calcium 8.9 MG/DL (8.5-10.1); Osmolality,Calculated 271.4 MOS/KG (273-304); Potassium 5.3 MMOL/L (3.5-5.1)
[2020-06-14] MEDS ORDERED: FLUCONAZOLE INJ 100 MG in IV BAG 1 EACH IV SCH (09:00)
[2020-06-14] MEDS: ISOSORBIDE MONONITRATE 30 MG TABLET PO SCH (09:25)
[2020-06-14] MEDS: DOCUSATE SODIUM 100 MG CAPSULE PO SCH ×2 (09:25→20:17)
[2020-06-14] MEDS: FUROSEMIDE 40 MG TABLET PO SCH (09:25)
[2020-06-14] MEDS: hydrALAZINE 10 MG TABLET PO SCH ×3 (09:25→20:19)
[2020-06-14] MEDS: carvediloL 25 MG TABLET PO SCH ×2 (09:25→20:19)
[2020-06-14] MEDS: ITRACONAZOLE 100 MG CAPSULE PO SCH (09:26)
[2020-06-14] MEDS: POLYETHYLENE GLYCOL POWDER 17 GM PACK PO SCH ×2 (09:26→20:17)
[2020-06-14] MEDS: POTASSIUM CHLORIDE 20 MEQ TABLET PO SCH ×2 (09:26→20:19)
[2020-06-14] MEDS: PANTOPRAZOLE 40 MG TABLET PO SCH ×2 (09:26→20:17)
[2020-06-14] MEDS: BUDESONIDE/FORMOTEROL 160-4.5 INHALER 6 GM INH SCH ×2 (09:26→20:17)
[2020-06-14] MEDS ORDERED: ALBUMIN 25% 25 GM in PREMIX 1 EACH IV ONE (10:49)
[2020-06-14] MEDS ORDERED: ENOXAPARIN 30 MG/0.3 ML SYRINGE SUBCUT ONE (11:01)
[2020-06-15 05:11] LABS: Basophils # 0.1 10*3/uL (0.0-0.2); Basophils % 0.8 % (0.0-0.8); Eosinophils # 0.4 10*3/uL (0.0-0.87); Eosinophils % 4.9 % (0.00-10.9); Immature Granulocytes % 0.9 %; Immature Granulocytes Absolute 0.07 #; Lymphocytes # 0.9 10*3/uL (1.4-4.0); Lymphocytes % 11.5 % (21.2-54.2); Mean Corpuscular HGB Conc 32.6 GM/DL (32-36); Mean Corpuscular Volume 96.4 FL (87-102); Monocytes % 5.1 % (1.7-12.7); Neutrophils % 76.8 % (38.7-73.9); Red Cell Distribution Width 17.8 % (9.3-17.3); White Blood Count 7.9 T/CUMM (4-12)
[2020-06-15 05:19] LABS: INR 1.2; PT Patient Result 12.9 SECS (9.8-11.9)
[2020-06-15 05:21] LABS: Calcium 8.4 MG/DL (8.5-10.1); Osmolality,Calculated 272.4 MOS/KG (273-304); Potassium 5.2 MMOL/L (3.5-5.1)
[2020-06-15 05:26] LABS: Hemoglobin 8.8 GM/DL (14.0-18.0); Platelet Count 85 T/CUMM (130-400)
[2020-06-15 06:17] LABS: Hypochromasia 1+; Microcytosis 1+; Platelet Estimate Decreased
[2020-06-15] MEDS: carvediloL 25 MG TABLET PO SCH ×2 (09:11→21:20)
[2020-06-15] MEDS: ISOSORBIDE MONONITRATE 30 MG TABLET PO SCH (09:11)
[2020-06-15] MEDS: POLYETHYLENE GLYCOL POWDER 17 GM PACK PO SCH ×2 (09:11→21:19)
[2020-06-15] MEDS: FUROSEMIDE 40 MG TABLET PO SCH (09:11)
[2020-06-15] MEDS: PANTOPRAZOLE 40 MG TABLET PO SCH ×2 (09:11→21:20)
[2020-06-15] MEDS: DOCUSATE SODIUM 100 MG CAPSULE PO SCH ×2 (09:11→21:20)
[2020-06-15] MEDS: hydrALAZINE 10 MG TABLET PO SCH ×2 (09:11→09:19)
[2020-06-15] MEDS: POTASSIUM CHLORIDE 20 MEQ TABLET PO SCH (09:12)
[2020-06-15] MEDS: BUDESONIDE/FORMOTEROL 160-4.5 INHALER 6 GM INH SCH ×2 (09:16→22:25)
[2020-06-15] MEDS: ITRACONAZOLE 100 MG CAPSULE PO SCH (10:13)
[2020-06-15] MEDS ORDERED: SODIUM CHLORIDE 0.9% 1,000 ML IV SCH (10:30)
[2020-06-15 17:41] LABS: Hematocrit 27.8 VOL% (42.0-52.0); Hemoglobin 8.6 GM/DL (14.0-18.0)
[2020-06-16 06:36] LABS: Basophils # 0.1 10*3/uL (0.0-0.2); Basophils % 1.1 % (0.0-0.8); Eosinophils # 0.3 10*3/uL (0.0-0.87); Eosinophils % 4.9 % (0.00-10.9); Hematocrit 26.9 VOL% (42.0-52.0); Hemoglobin 8.5 GM/DL (14.0-18.0); Immature Granulocytes % 0.9 %; Immature Granulocytes Absolute 0.06 #; Lymphocytes # 0.9 10*3/uL (1.4-4.0); Lymphocytes % 13.9 % (21.2-54.2); Mean Corpuscular HGB Conc 31.6 GM/DL (32-36); Mean Corpuscular Volume 98.2 FL (87-102); Monocytes % 5.9 % (1.7-12.7); Neutrophils % 73.3 % (38.7-73.9); Platelet Count 84 T/CUMM (130-400); Red Blood Count 2.74 MC/CUMM (3.8-5.5); Red Cell Distribution Width 17.7 % (9.3-17.3); White Blood Count 6.6 T/CUMM (4-12)
[2020-06-16 06:52] LABS: Calcium 8.6 MG/DL (8.5-10.1); Osmolality,Calculated 273.2 MOS/KG (273-304); Potassium 4.6 MMOL/L (3.5-5.1)
[2020-06-16 06:57] LABS: Eosinophils 7 % (0-10); Hypochromasia 1+; Lymphocytes 10 % (20-55); Microcytosis 1+; Platelet Estimate Decreased; Segmented Neutrophils 79 % (50-85); Total Cells Counted 100
[2020-06-16] MEDS: ITRACONAZOLE 100 MG CAPSULE PO SCH (09:26)
[2020-06-16] MEDS: POLYETHYLENE GLYCOL POWDER 17 GM PACK PO SCH ×2 (09:26→21:13)
[2020-06-16] MEDS: DOCUSATE SODIUM 100 MG CAPSULE PO SCH ×2 (09:26→21:12)
[2020-06-16] MEDS: BUDESONIDE/FORMOTEROL 160-4.5 INHALER 6 GM INH SCH ×2 (09:27→21:12)
[2020-06-16] MEDS: ISOSORBIDE MONONITRATE 30 MG TABLET PO SCH (09:27)
[2020-06-16] MEDS: carvediloL 25 MG TABLET PO SCH ×2 (09:27→21:12)
[2020-06-16] MEDS: PANTOPRAZOLE 40 MG TABLET PO SCH ×2 (09:27→21:12)
[2020-06-16] MEDS: FUROSEMIDE 40 MG TABLET PO SCH (09:27)
[2020-06-16] MEDS ORDERED: BISACODYL 5 MG TABLET PO ONE (12:00)
[2020-06-16] MEDS: SODIUM CHLORIDE 0.9% 1,000 ML IV SCH (13:36)
[2020-06-16] MEDS ORDERED: POLYETHYLENE GLYCOL POWDER 255 GM BOTTLE PO ONE (18:00)
[2020-06-17] MEDS: SODIUM CHLORIDE 0.9% 1,000 ML IV SCH (04:54)
[2020-06-17 05:33] LABS: Basophils # 0.1 10*3/uL (0.0-0.2); Basophils % 0.9 % (0.0-0.8); Eosinophils # 0.3 10*3/uL (0.0-0.87); Hematocrit 25.3 VOL% (42.0-52.0); Immature Granulocytes % 0.9 %; Immature Granulocytes Absolute 0.06 #; Mean Corpuscular HGB Conc 31.6 GM/DL (32-36); Mean Corpuscular Volume 98.8 FL (87-102); Neutrophils % 73.2 % (38.7-73.9); Red Cell Distribution Width 17.8 % (9.3-17.3); White Blood Count 6.7 T/CUMM (4-12)
[2020-06-17 05:35] LABS: INR 1.3; PT Patient Result 13.4 SECS (9.8-11.9)
[2020-06-17 05:44] LABS: Calcium 8.4 MG/DL (8.5-10.1); Osmolality,Calculated 279.8 MOS/KG (273-304); Potassium 4.2 MMOL/L (3.5-5.1)
[2020-06-17 05:47] LABS: Platelet Count 81 T/CUMM (130-400); Red Blood Count 2.56 MC/CUMM (3.8-5.5)
[2020-06-17 06:05] LABS: Hypochromasia 1+
[2020-06-17 06:06] LABS: Microcytosis 1+; Ovalocytes Slight
[2020-06-17 06:07] LABS: Platelet Estimate Decreased
[2020-06-17] MEDS ORDERED: LACTATED RINGERS 1,000 ML IV SCH (08:00)
[2020-06-17] MEDS ORDERED: propofoL 200 MG/20 ML VIAL IV ONE (09:23)
[2020-06-17] MEDS ORDERED: LIDOCAINE 2% 5 ML VIAL ONE (09:23)
[2020-06-17] MEDS: ITRACONAZOLE 100 MG CAPSULE PO SCH (12:10)
[2020-06-17] MEDS: carvediloL 25 MG TABLET PO SCH (12:11)
[2020-06-17] MEDS: DOCUSATE SODIUM 100 MG CAPSULE PO SCH (12:11)
[2020-06-17] MEDS: ISOSORBIDE MONONITRATE 30 MG TABLET PO SCH (12:11)
[2020-06-17] MEDS: FUROSEMIDE 40 MG TABLET PO SCH (12:11)
[2020-06-17] MEDS: PANTOPRAZOLE 40 MG TABLET PO SCH (12:11)
[2020-06-17] MEDS: BUDESONIDE/FORMOTEROL 160-4.5 INHALER 6 GM INH SCH (12:11)
[2020-06-17] MEDS: POLYETHYLENE GLYCOL POWDER 17 GM PACK PO SCH (12:12)
[2020-06-17 19:09] VITALS: BP 110/47
== END 2020-06-17 18:57 | disposition home health service (06) | DRG 291 ==
LOC: N.ED 12:18 → N.EDINP 12:18 → SUATTDRO 15:02 → N.EDINP 16:29 → SUATTDRO 16:42 → N.TELEN 16:47
PROVIDERS: ADMIT Emergency Medicine; ATTEND Internal Medicine

== ENCOUNTER 2020-06-19 16:43 | Inpatient (IN) ==
[2020-06-19] MEDS ORDERED: FUROSEMIDE 100 MG/10 ML VIAL IV STA (17:11)
[2020-06-19 17:18] LABS: Basophils # 0.1 10*3/uL (0.0-0.2); Basophils % 0.8 % (0.0-0.8); Eosinophils # 0.4 10*3/uL (0.0-0.87); Eosinophils % 4.7 % (0.00-10.9); Hematocrit 26.6 VOL% (42.0-52.0); Hemoglobin 8.2 GM/DL (14.0-18.0); Immature Granulocytes % 1.2 %; Lymphocytes # 1.3 10*3/uL (1.4-4.0); Lymphocytes % 14.9 % (21.2-54.2); Mean Corpuscular HGB Conc 30.8 GM/DL (32-36); Mean Corpuscular Volume 99.6 FL (87-102); Monocytes % 4.4 % (1.7-12.7); Platelet Count 150 T/CUMM (130-400); Red Blood Count 2.67 MC/CUMM (3.8-5.5); Red Cell Distribution Width 18.2 % (9.3-17.3); White Blood Count 8.6 T/CUMM (4-12)
[2020-06-19 17:36] LABS: Albumin 2.1 G/DL (3.4-5.0); Bilirubin,Total 0.7 MG/DL (0.2-1.0); Calcium 8.6 MG/DL (8.5-10.1); Potassium 4.5 MMOL/L (3.5-5.1); Total Protein 8.3 G/DL (6.4-8.2)
[2020-06-19 17:45] LABS: Anisocytosis 1+; Band Neutrophils 2 % (0-10); Elliptocytes Few; Eosinophils 4 % (0-10); Hypochromasia 1+; Lymphocytes 15 % (20-55); Polychromasia 1+; Segmented Neutrophils 75 % (50-85); Total Cells Counted 100
[2020-06-19 17:46] LABS: Platelet Estimate Adequate
[2020-06-19] MEDS ORDERED: MAGNESIUM SULF RIDER 2 GM in PREMIX 1 EACH IV PRN (18:00)
[2020-06-19] MEDS ORDERED: GLUCAGON 1 MG VIAL IM PRN (18:00)
[2020-06-19] MEDS ORDERED: MAGNESIUM SULF RIDER 4 GM in PREMIX 1 EACH IV PRN (18:00)
[2020-06-19] MEDS ORDERED: DEXTROSE 50% 25 GM/50 ML VIAL IV PRN (18:00)
[2020-06-19 18:21] LABS: INR 1.3; PT Patient Result 13.6 SECS (9.8-11.9)
[2020-06-19] MEDS ORDERED: ALBUTEROL 2.5 MG/3 ML NEB RESP TX PRN (18:36)
[2020-06-19] MEDS ORDERED: BENZONATATE 100 MG CAPSULE PO PRN (18:42)
[2020-06-19] MEDS ORDERED: ENOXAPARIN 80 MG/0.8 ML SYRINGE SUBCUT SCH (19:00)
[2020-06-19] MEDS ORDERED: WARFARIN 3 MG TABLET PO SCH (20:00)
[2020-06-19] MEDS: POTASSIUM CHLORIDE 20 MEQ TABLET PO SCH (21:51)
[2020-06-19] MEDS: hydrALAZINE 10 MG TABLET PO SCH (21:52)
[2020-06-19] MEDS: DOCUSATE SODIUM 100 MG CAPSULE PO SCH (21:53)
[2020-06-19] MEDS: PANTOPRAZOLE 40 MG TABLET PO SCH (21:54)
[2020-06-19] MEDS: carvediloL 25 MG TABLET PO SCH (21:54)
[2020-06-19] MEDS: BUDESONIDE/FORMOTEROL 160-4.5 INHALER 6 GM INH SCH (22:02)
[2020-06-20 05:20] LABS: Basophils # 0.1 10*3/uL (0.0-0.2); Eosinophils # 0.3 10*3/uL (0.0-0.87); Hematocrit 24.9 VOL% (42.0-52.0); Hemoglobin 7.7 GM/DL (14.0-18.0); Immature Granulocytes % 1.6 %; Immature Granulocytes Absolute 0.11 #; Lymphocytes # 1.2 10*3/uL (1.4-4.0); Lymphocytes % 17.8 % (21.2-54.2); Mean Corpuscular HGB Conc 30.9 GM/DL (32-36); Mean Platelet Volume 14.4 FL (9.6-12.0); Monocytes % 5.5 % (1.7-12.7); Neutrophils % 70.1 % (38.7-73.9); Platelet Count 123 T/CUMM (130-400); Red Blood Count 2.49 MC/CUMM (3.8-5.5)
[2020-06-20 05:29] LABS: INR 1.3
[2020-06-20 05:39] LABS: Albumin 1.8 G/DL (3.4-5.0); Bilirubin,Total 0.8 MG/DL (0.2-1.0); Calcium 8.7 MG/DL (8.5-10.1); Osmolality,Calculated 288.4 MOS/KG (273-304); Potassium 4.8 MMOL/L (3.5-5.1); Total Protein 7.4 G/DL (6.4-8.2)
[2020-06-20 05:45] LABS: Eosinophils 3 % (0-10); Lymphocytes 10 % (20-55); Platelet Estimate Normal; Segmented Neutrophils 83 % (50-85)
[2020-06-20 05:46] LABS: Hypochromasia 1+; Macrocytosis Slight; Total Cells Counted 100
[2020-06-20] MEDS: ALBUTEROL 2.5 MG/3 ML NEB RESP TX SCH ×4 (09:38→20:32)
[2020-06-20] MEDS: POLYETHYLENE GLYCOL POWDER 17 GM PACK PO SCH (09:46)
[2020-06-20] MEDS: BUDESONIDE/FORMOTEROL 160-4.5 INHALER 6 GM INH SCH ×2 (09:47→22:22)
[2020-06-20] MEDS: hydrALAZINE 10 MG TABLET PO SCH ×3 (09:48→22:22)
[2020-06-20] MEDS: POTASSIUM CHLORIDE 20 MEQ TABLET PO SCH ×2 (09:48→22:22)
[2020-06-20] MEDS: ITRACONAZOLE 100 MG CAPSULE PO SCH (09:48)
[2020-06-20] MEDS: ISOSORBIDE MONONITRATE 30 MG TABLET PO SCH (09:49)
[2020-06-20] MEDS: carvediloL 25 MG TABLET PO SCH ×2 (09:49→22:22)
[2020-06-20] MEDS: PANTOPRAZOLE 40 MG TABLET PO SCH ×2 (09:49→22:22)
[2020-06-20] MEDS: FUROSEMIDE 40 MG/4 ML VIAL IV SCH ×2 (09:49→15:12)
[2020-06-20] MEDS: DOCUSATE SODIUM 100 MG CAPSULE PO SCH ×2 (09:49→22:22)
[2020-06-20 11:16] LABS: Ferritin 401.3 ng/ml (26-388)
[2020-06-20] MEDS ORDERED: WARFARIN 3 MG TABLET PO SCH (18:00)
[2020-06-21] MEDS: ALBUTEROL 2.5 MG/3 ML NEB RESP TX SCH ×6 (00:52→21:02)
[2020-06-21 07:51] LABS: Eosinophils % 3.3 % (0.00-10.9); Hemoglobin 8.2 GM/DL (14.0-18.0); Red Blood Count 2.71 MC/CUMM (3.8-5.5)
[2020-06-21 07:58] LABS: Basophils # 0.1 10*3/uL (0.0-0.2); Basophils % 0.8 % (0.0-0.8); Eosinophils # 0.2 10*3/uL (0.0-0.87); Hematocrit 26.1 VOL% (42.0-52.0); Immature Granulocytes % 1.5 %; Immature Granulocytes Absolute 0.11 #; Lymphocytes # 1.1 10*3/uL (1.4-4.0); Lymphocytes % 15.2 % (21.2-54.2); Mean Corpuscular HGB Conc 31.4 GM/DL (32-36); Mean Corpuscular Volume 96.3 FL (87-102); Mean Platelet Volume 13.9 FL (9.6-12.0); Monocytes % 5.8 % (1.7-12.7); Neutrophils % 73.4 % (38.7-73.9); Red Cell Distribution Width 18.1 % (9.3-17.3); White Blood Count 7.3 T/CUMM (4-12)
[2020-06-21 08:03] LABS: Platelet Count 139 T/CUMM (130-400)
[2020-06-21 08:06] LABS: Calcium 8.7 MG/DL (8.5-10.1); Osmolality,Calculated 284.8 MOS/KG (273-304); Potassium 4.9 MMOL/L (3.5-5.1)
[2020-06-21 08:15] LABS: Platelet Estimate Decreased
[2020-06-21 08:16] LABS: Anisocytosis 1+; Giant Platelets Few; Hypochromasia 2+; Macrocytosis 1+
[2020-06-21 08:49] LABS: Band Neutrophils 2 % (0-10); Eosinophils 4 % (0-10); Lymphocytes 9 % (20-55); Segmented Neutrophils 81 % (50-85); Total Cells Counted 100
[2020-06-21] MEDS ORDERED: WARFARIN 3 MG TABLET PO SCH (09:00)
[2020-06-21] MEDS: MULTIVITAMIN (BEROCCA) TABLET PO SCH (09:50)
[2020-06-21] MEDS: POTASSIUM CHLORIDE 20 MEQ TABLET PO SCH ×2 (09:50→22:03)
[2020-06-21] MEDS: FERROUS SULFATE 325 MG TABLET PO SCH ×3 (09:50→22:03)
[2020-06-21] MEDS: ITRACONAZOLE 100 MG CAPSULE PO SCH (09:50)
[2020-06-21] MEDS: POLYETHYLENE GLYCOL POWDER 17 GM PACK PO SCH (09:50)
[2020-06-21] MEDS: DOCUSATE SODIUM 100 MG CAPSULE PO SCH ×2 (09:50→22:02)
[2020-06-21] MEDS: ISOSORBIDE MONONITRATE 30 MG TABLET PO SCH (09:51)
[2020-06-21] MEDS: carvediloL 25 MG TABLET PO SCH ×2 (09:51→22:02)
[2020-06-21] MEDS: PANTOPRAZOLE 40 MG TABLET PO SCH ×2 (09:51→22:03)
[2020-06-21] MEDS: hydrALAZINE 10 MG TABLET PO SCH ×3 (09:52→22:02)
[2020-06-21] MEDS: FUROSEMIDE 40 MG/4 ML VIAL IV SCH ×2 (09:52→17:08)
[2020-06-21] MEDS: BUDESONIDE/FORMOTEROL 160-4.5 INHALER 6 GM INH SCH ×2 (09:58→22:03)
[2020-06-22] MEDS: ALBUTEROL 2.5 MG/3 ML NEB RESP TX SCH ×6 (00:34→20:15)
[2020-06-22 06:14] LABS: Basophils # 0.1 10*3/uL (0.0-0.2); Basophils % 1.3 % (0.0-0.8); Eosinophils # 0.1 10*3/uL (0.0-0.87); Eosinophils % 1.3 % (0.00-10.9); Hematocrit 25.8 VOL% (42.0-52.0); Hemoglobin 8.2 GM/DL (14.0-18.0); Immature Granulocytes % 2.5 %; Lymphocytes # 1.2 10*3/uL (1.4-4.0); Lymphocytes % 15.7 % (21.2-54.2); Mean Corpuscular HGB Conc 31.8 GM/DL (32-36); Mean Corpuscular Volume 94.9 FL (87-102); Mean Platelet Volume 14.2 FL (9.6-12.0); Monocytes % 5.4 % (1.7-12.7); Neutrophils % 73.8 % (38.7-73.9); Platelet Count 155 T/CUMM (130-400); Red Blood Count 2.72 MC/CUMM (3.8-5.5); Red Cell Distribution Width 17.9 % (9.3-17.3); White Blood Count 7.9 T/CUMM (4-12)
[2020-06-22 06:43] LABS: Calcium 9.1 MG/DL (8.5-10.1); Osmolality,Calculated 291.5 MOS/KG (273-304)
[2020-06-22 07:05] LABS: Anisocytosis 1+; Band Neutrophils 9 % (0-10); Eosinophils 3 % (0-10); Lymphocytes 15 % (20-55); Platelet Estimate Normal; Segmented Neutrophils 65 % (50-85); Total Cells Counted 100
[2020-06-22 07:06] LABS: Macrocytosis 1+
[2020-06-22] MEDS: POLYETHYLENE GLYCOL POWDER 17 GM PACK PO SCH (09:31)
[2020-06-22] MEDS: hydrALAZINE 10 MG TABLET PO SCH ×3 (09:34→22:10)
[2020-06-22] MEDS: FERROUS SULFATE 325 MG TABLET PO SCH ×3 (09:34→22:12)
[2020-06-22] MEDS: FUROSEMIDE 40 MG/4 ML VIAL IV SCH ×2 (09:34→16:45)
[2020-06-22] MEDS: ITRACONAZOLE 100 MG CAPSULE PO SCH (09:34)
[2020-06-22] MEDS: carvediloL 25 MG TABLET PO SCH ×2 (09:34→22:12)
[2020-06-22] MEDS: MULTIVITAMIN (BEROCCA) TABLET PO SCH (09:34)
[2020-06-22] MEDS: PANTOPRAZOLE 40 MG TABLET PO SCH ×2 (09:35→22:14)
[2020-06-22] MEDS: BUDESONIDE/FORMOTEROL 160-4.5 INHALER 6 GM INH SCH ×2 (09:35→22:14)
[2020-06-22] MEDS: ISOSORBIDE MONONITRATE 30 MG TABLET PO SCH (09:35)
[2020-06-22] MEDS: DOCUSATE SODIUM 100 MG CAPSULE PO SCH ×2 (09:35→22:11)
[2020-06-22] MEDS: POTASSIUM CHLORIDE 20 MEQ TABLET PO SCH ×2 (10:27→22:13)
[2020-06-22] MEDS ORDERED: SODIUM CHLORIDE 0.9% 1,000 ML IV PRN (11:40)
[2020-06-22] MEDS: ASPIRIN EC 81 MG TABLET PO SCH (15:09)
[2020-06-22 22:22] LABS: Hematocrit 29.8 VOL% (42.0-52.0); Hemoglobin 9.7 GM/DL (14.0-18.0)
[2020-06-23] MEDS: ALBUTEROL 2.5 MG/3 ML NEB RESP TX SCH ×6 (00:30→20:00)
[2020-06-23 06:00] LABS: Basophils # 0.1 10*3/uL (0.0-0.2); Basophils % 1.1 % (0.0-0.8); Eosinophils # 0.1 10*3/uL (0.0-0.87); Hematocrit 29.1 VOL% (42.0-52.0); Hemoglobin 9.5 GM/DL (14.0-18.0); Immature Granulocytes % 1.8 %; Immature Granulocytes Absolute 0.16 #; Lymphocytes # 1.4 10*3/uL (1.4-4.0); Mean Corpuscular HGB Conc 32.6 GM/DL (32-36); Mean Corpuscular Volume 94.8 FL (87-102); Monocytes % 4.1 % (1.7-12.7); NRBC # 0.02 10*3/uL; Platelet Count 119 T/CUMM (130-400); Red Blood Count 3.07 MC/CUMM (3.8-5.5); Red Cell Distribution Width 17.3 % (9.3-17.3); White Blood Count 8.9 T/CUMM (4-12)
[2020-06-23 06:20] LABS: Calcium 9.1 MG/DL (8.5-10.1); Osmolality,Calculated 289.8 MOS/KG (273-304); Potassium 4.7 MMOL/L (3.5-5.1)
[2020-06-23 06:54] LABS: Band Neutrophils 8 % (0-10); Eosinophils 3 % (0-10); Lymphocytes 18 % (20-55); Platelet Estimate Adequate; Segmented Neutrophils 66 % (50-85); Total Cells Counted 100
[2020-06-23 06:55] LABS: Anisocytosis 2+; Macrocytosis 1+
[2020-06-23] MEDS: MULTIVITAMIN (BEROCCA) TABLET PO SCH (09:03)
[2020-06-23] MEDS: FERROUS SULFATE 325 MG TABLET PO SCH ×3 (09:03→21:02)
[2020-06-23] MEDS: PANTOPRAZOLE 40 MG TABLET PO SCH ×2 (09:03→21:02)
[2020-06-23] MEDS: hydrALAZINE 10 MG TABLET PO SCH ×3 (09:03→21:02)
[2020-06-23] MEDS: carvediloL 25 MG TABLET PO SCH (09:04)
[2020-06-23] MEDS: ISOSORBIDE MONONITRATE 30 MG TABLET PO SCH (09:04)
[2020-06-23] MEDS: ITRACONAZOLE 100 MG CAPSULE PO SCH (09:04)
[2020-06-23] MEDS: POTASSIUM CHLORIDE 20 MEQ TABLET PO SCH ×2 (09:05→21:02)
[2020-06-23] MEDS: DOCUSATE SODIUM 100 MG CAPSULE PO SCH ×2 (09:05→21:02)
[2020-06-23] MEDS: ASPIRIN EC 81 MG TABLET PO SCH (09:05)
[2020-06-23] MEDS: POLYETHYLENE GLYCOL POWDER 17 GM PACK PO SCH (09:06)
[2020-06-23] MEDS: BUDESONIDE/FORMOTEROL 160-4.5 INHALER 6 GM INH SCH ×2 (09:06→21:05)
[2020-06-23] MEDS: FUROSEMIDE 40 MG/4 ML VIAL IV SCH (09:07)
[2020-06-23] MEDS ORDERED: SODIUM CHLORIDE 0.45% 1,000 ML IV SCH (16:00)
[2020-06-23] MEDS: LEVOFLOXACIN INJ 750 MG in PREMIX 1 EACH IV SCH (17:23)
[2020-06-23] MEDS ORDERED: carvediloL 25 MG TABLET PO ONE (21:00)
[2020-06-24] MEDS: ALBUTEROL 2.5 MG/3 ML NEB RESP TX SCH ×7 (00:47→23:56)
[2020-06-24 05:15] LABS: Basophils # 0.1 10*3/uL (0.0-0.2); Basophils % 0.8 % (0.0-0.8); Eosinophils # 0.1 10*3/uL (0.0-0.87); Eosinophils % 1.2 % (0.00-10.9); Hematocrit 28.7 VOL% (42.0-52.0); Immature Granulocytes % 1.9 %; Immature Granulocytes Absolute 0.19 #; Lymphocytes # 1.2 10*3/uL (1.4-4.0); Lymphocytes % 12.3 % (21.2-54.2); Mean Corpuscular HGB Conc 31.4 GM/DL (32-36); Mean Corpuscular Volume 96.6 FL (87-102); Monocytes % 4.4 % (1.7-12.7); NRBC # 0.04 10*3/uL; Neutrophils % 79.4 % (38.7-73.9); Platelet Count 159 T/CUMM (130-400); Red Blood Count 2.97 MC/CUMM (3.8-5.5); Red Cell Distribution Width 17.7 % (9.3-17.3); White Blood Count 9.9 T/CUMM (4-12)
[2020-06-24 05:33] LABS: Band Neutrophils 1 % (0-10); Eosinophils 2 % (0-10); Hypochromasia 1+; Lymphocytes 8 % (20-55); Macrocytosis 1+; Segmented Neutrophils 86 % (50-85); Total Cells Counted 100
[2020-06-24 05:34] LABS: Platelet Estimate Adequate; Polychromasia Slight
[2020-06-24 05:50] LABS: Calcium 8.8 MG/DL (8.5-10.1); Osmolality,Calculated 294.5 MOS/KG (273-304); Potassium 5.2 MMOL/L (3.5-5.1)
[2020-06-24] MEDS: BUDESONIDE/FORMOTEROL 160-4.5 INHALER 6 GM INH SCH ×2 (08:25→21:14)
[2020-06-24] MEDS: ITRACONAZOLE 100 MG CAPSULE PO SCH (10:55)
[2020-06-24] MEDS: PANTOPRAZOLE 40 MG TABLET PO SCH ×2 (10:55→21:13)
[2020-06-24] MEDS: POLYETHYLENE GLYCOL POWDER 17 GM PACK PO SCH (10:55)
[2020-06-24] MEDS: DOCUSATE SODIUM 100 MG CAPSULE PO SCH ×2 (10:56→21:13)
[2020-06-24] MEDS: ISOSORBIDE MONONITRATE 30 MG TABLET PO SCH (10:56)
[2020-06-24] MEDS: FERROUS SULFATE 325 MG TABLET PO SCH ×3 (10:57→21:13)
[2020-06-24] MEDS: hydrALAZINE 10 MG TABLET PO SCH ×3 (10:57→21:13)
[2020-06-24] MEDS: ASPIRIN EC 81 MG TABLET PO SCH (10:57)
[2020-06-24] MEDS: MULTIVITAMIN (BEROCCA) TABLET PO SCH (10:57)
[2020-06-24] MEDS: NEBIVOLOL 10 MG TABLET PO SCH (10:57)
[2020-06-25] MEDS: ALBUTEROL 2.5 MG/3 ML NEB RESP TX SCH ×6 (04:35→23:28)
[2020-06-25 05:13] LABS: Basophils # 0.1 10*3/uL (0.0-0.2); Eosinophils # 0.2 10*3/uL (0.0-0.87); Eosinophils % 2.3 % (0.00-10.9); Hematocrit 26.8 VOL% (42.0-52.0); Hemoglobin 8.3 GM/DL (14.0-18.0); Immature Granulocytes % 1.8 %; Immature Granulocytes Absolute 0.15 #; Lymphocytes # 1.3 10*3/uL (1.4-4.0); Lymphocytes % 15.8 % (21.2-54.2); Mean Corpuscular Volume 98.9 FL (87-102); NRBC # 0.02 10*3/uL; Neutrophils % 74.1 % (38.7-73.9); Platelet Count 157 T/CUMM (130-400); Red Blood Count 2.71 MC/CUMM (3.8-5.5); White Blood Count 8.2 T/CUMM (4-12)
[2020-06-25 05:16] LABS: Calcium 8.6 MG/DL (8.5-10.1); Osmolality,Calculated 296.5 MOS/KG (273-304); Potassium 5.1 MMOL/L (3.5-5.1)
[2020-06-25 05:39] LABS: Eosinophils 7 % (0-10); Lymphocytes 13 % (20-55); Metamyelocytes 1 %; Segmented Neutrophils 75 % (50-85); Total Cells Counted 100
[2020-06-25 05:40] LABS: Hypochromasia 1+; Macrocytosis 1+
[2020-06-25] MEDS ORDERED: FUROSEMIDE 40 MG/4 ML VIAL IV ONE (09:41)
[2020-06-25] MEDS: POLYETHYLENE GLYCOL POWDER 17 GM PACK PO SCH (09:41)
[2020-06-25] MEDS: MULTIVITAMIN (BEROCCA) TABLET PO SCH (09:51)
[2020-06-25] MEDS: ASPIRIN EC 81 MG TABLET PO SCH (09:51)
[2020-06-25] MEDS: DOCUSATE SODIUM 100 MG CAPSULE PO SCH ×2 (09:51→21:20)
[2020-06-25] MEDS: ISOSORBIDE MONONITRATE 30 MG TABLET PO SCH (09:52)
[2020-06-25] MEDS: PANTOPRAZOLE 40 MG TABLET PO SCH ×2 (09:52→21:20)
[2020-06-25] MEDS: FERROUS SULFATE 325 MG TABLET PO SCH ×3 (09:52→21:20)
[2020-06-25] MEDS: NEBIVOLOL 10 MG TABLET PO SCH (09:52)
[2020-06-25] MEDS: DOBUTamine 500 MG/250 ML PREMIX IV SCH (09:53)
[2020-06-25] MEDS: ITRACONAZOLE 100 MG CAPSULE PO SCH (09:53)
[2020-06-25] MEDS: BUDESONIDE/FORMOTEROL 160-4.5 INHALER 6 GM INH SCH ×2 (09:53→21:22)
[2020-06-25] MEDS: hydrALAZINE 10 MG TABLET PO SCH ×3 (09:58→21:20)
[2020-06-25] MEDS: methylPREDNISolone SOD SUC 40 MG/1 ML VIAL IV SCH ×2 (16:48→23:45)
[2020-06-25] MEDS: LEVOFLOXACIN INJ 750 MG in PREMIX 1 EACH IV SCH (16:49)
[2020-06-26] MEDS: ALBUTEROL 2.5 MG/3 ML NEB RESP TX SCH ×6 (02:22→23:14)
[2020-06-26 05:32] LABS: Basophils % 0.2 % (0.0-0.8); Hematocrit 26.9 VOL% (42.0-52.0); Hemoglobin 8.4 GM/DL (14.0-18.0); Immature Granulocytes % 1.8 %; Immature Granulocytes Absolute 0.09 #; Lymphocytes # 0.9 10*3/uL (1.4-4.0); Lymphocytes % 17.1 % (21.2-54.2); Mean Corpuscular HGB Conc 31.2 GM/DL (32-36); Mean Corpuscular Volume 98.2 FL (87-102); Mean Platelet Volume 14.6 FL (9.6-12.0); Monocytes % 1.6 % (1.7-12.7); Neutrophils % 79.3 % (38.7-73.9); Platelet Count 166 T/CUMM (130-400); Red Blood Count 2.74 MC/CUMM (3.8-5.5); Red Cell Distribution Width 18.1 % (9.3-17.3); White Blood Count 5.1 T/CUMM (4-12)
[2020-06-26 05:54] LABS: Potassium 4.9 MMOL/L (3.5-5.1)
[2020-06-26 05:58] LABS: Hypochromasia 1+; Microcytosis 1+; Platelet Estimate Adequate
[2020-06-26] MEDS: DOCUSATE SODIUM 100 MG CAPSULE PO SCH ×2 (08:53→20:54)
[2020-06-26] MEDS: ASPIRIN EC 81 MG TABLET PO SCH (08:54)
[2020-06-26] MEDS: ISOSORBIDE MONONITRATE 30 MG TABLET PO SCH (08:54)
[2020-06-26] MEDS: NEBIVOLOL 10 MG TABLET PO SCH (08:54)
[2020-06-26] MEDS: ITRACONAZOLE 100 MG CAPSULE PO SCH (08:54)
[2020-06-26] MEDS: MULTIVITAMIN (BEROCCA) TABLET PO SCH (08:54)
[2020-06-26] MEDS: PANTOPRAZOLE 40 MG TABLET PO SCH ×2 (08:55→20:54)
[2020-06-26] MEDS: methylPREDNISolone SOD SUC 40 MG/1 ML VIAL IV SCH ×2 (08:55→17:19)
[2020-06-26] MEDS: POLYETHYLENE GLYCOL POWDER 17 GM PACK PO SCH (08:55)
[2020-06-26] MEDS: hydrALAZINE 10 MG TABLET PO SCH ×3 (08:55→20:54)
[2020-06-26] MEDS: FERROUS SULFATE 325 MG TABLET PO SCH ×3 (08:55→20:54)
[2020-06-26] MEDS: BUDESONIDE/FORMOTEROL 160-4.5 INHALER 6 GM INH SCH ×2 (08:56→20:55)
[2020-06-26] MEDS: FUROSEMIDE 80 MG TABLET PO SCH (08:57)
[2020-06-26] MEDS: DOBUTamine 500 MG/250 ML PREMIX IV SCH (09:03)
[2020-06-27] MEDS: methylPREDNISolone SOD SUC 40 MG/1 ML VIAL IV SCH ×3 (00:20→16:20)
[2020-06-27] MEDS: ALBUTEROL 2.5 MG/3 ML NEB RESP TX SCH ×5 (03:12→19:36)
[2020-06-27 05:36] LABS: Hematocrit 26.2 VOL% (42.0-52.0); Hemoglobin 8.5 GM/DL (14.0-18.0); Immature Granulocytes % 1.1 %; Immature Granulocytes Absolute 0.08 #; Mean Corpuscular HGB Conc 32.4 GM/DL (32-36); Mean Corpuscular Volume 96.3 FL (87-102); Monocytes % 2.1 % (1.7-12.7); Neutrophils % 83.8 % (38.7-73.9); Platelet Count 169 T/CUMM (130-400); Red Blood Count 2.72 MC/CUMM (3.8-5.5); Red Cell Distribution Width 18.1 % (9.3-17.3); White Blood Count 7.5 T/CUMM (4-12)
[2020-06-27 05:58] LABS: Band Neutrophils 1 % (0-10); Lymphocytes 7 % (20-55); Segmented Neutrophils 90 % (50-85); Total Cells Counted 100
[2020-06-27 05:59] LABS: Anisocytosis 1+; Hypochromasia 1+; Microcytosis 1+; Platelet Estimate Adequate
[2020-06-27 06:36] LABS: Calcium 8.9 MG/DL (8.5-10.1); Osmolality,Calculated 305.5 MOS/KG (273-304); Potassium 4.4 MMOL/L (3.5-5.1)
[2020-06-27] MEDS: ASPIRIN EC 81 MG TABLET PO SCH (08:31)
[2020-06-27] MEDS: DOCUSATE SODIUM 100 MG CAPSULE PO SCH ×2 (08:31→21:39)
[2020-06-27] MEDS: FUROSEMIDE 80 MG TABLET PO SCH (08:31)
[2020-06-27] MEDS: NEBIVOLOL 10 MG TABLET PO SCH (08:31)
[2020-06-27] MEDS: hydrALAZINE 10 MG TABLET PO SCH ×3 (08:31→21:40)
[2020-06-27] MEDS: MULTIVITAMIN (BEROCCA) TABLET PO SCH (08:31)
[2020-06-27] MEDS: FERROUS SULFATE 325 MG TABLET PO SCH ×3 (08:31→21:40)
[2020-06-27] MEDS: ISOSORBIDE MONONITRATE 30 MG TABLET PO SCH (08:32)
[2020-06-27] MEDS: ITRACONAZOLE 100 MG CAPSULE PO SCH (08:33)
[2020-06-27] MEDS: DOBUTamine 500 MG/250 ML PREMIX IV SCH (08:34)
[2020-06-27] MEDS: BUDESONIDE/FORMOTEROL 160-4.5 INHALER 6 GM INH SCH ×2 (08:44→21:40)
[2020-06-27] MEDS: POLYETHYLENE GLYCOL POWDER 17 GM PACK PO SCH (08:44)
[2020-06-27] MEDS: LEVOFLOXACIN 750 MG TABLET PO SCH (08:55)
[2020-06-27] MEDS: PANTOPRAZOLE 40 MG TABLET PO SCH ×2 (08:55→21:40)
[2020-06-28] MEDS: ALBUTEROL 2.5 MG/3 ML NEB RESP TX SCH ×7 (00:11→19:26)
[2020-06-28] MEDS: methylPREDNISolone SOD SUC 40 MG/1 ML VIAL IV SCH ×3 (00:30→16:37)
[2020-06-28 05:44] LABS: Basophils % 0.1 % (0.0-0.8); Hematocrit 25.9 VOL% (42.0-52.0); Hemoglobin 8.2 GM/DL (14.0-18.0); Immature Granulocytes % 1.5 %; Immature Granulocytes Absolute 0.13 #; Lymphocytes # 0.8 10*3/uL (1.4-4.0); Lymphocytes % 8.9 % (21.2-54.2); Mean Corpuscular HGB Conc 31.7 GM/DL (32-36); Mean Corpuscular Volume 98.5 FL (87-102); Monocytes % 2.2 % (1.7-12.7); Neutrophils % 87.3 % (38.7-73.9); Platelet Count 160 T/CUMM (130-400); Red Blood Count 2.63 MC/CUMM (3.8-5.5); Red Cell Distribution Width 18.3 % (9.3-17.3); White Blood Count 8.7 T/CUMM (4-12)
[2020-06-28 06:07] LABS: Hypochromasia 1+; Microcytosis 1+; Platelet Estimate Adequate
[2020-06-28 06:09] LABS: Calcium 8.8 MG/DL (8.5-10.1); Osmolality,Calculated 303.8 MOS/KG (273-304); Potassium 4.7 MMOL/L (3.5-5.1)
[2020-06-28] MEDS: ASPIRIN EC 81 MG TABLET PO SCH (09:17)
[2020-06-28] MEDS: NEBIVOLOL 10 MG TABLET PO SCH (09:17)
[2020-06-28] MEDS: MULTIVITAMIN (BEROCCA) TABLET PO SCH (09:17)
[2020-06-28] MEDS: DOCUSATE SODIUM 100 MG CAPSULE PO SCH ×2 (09:18→20:30)
[2020-06-28] MEDS: FUROSEMIDE 80 MG TABLET PO SCH (09:18)
[2020-06-28] MEDS: FERROUS SULFATE 325 MG TABLET PO SCH ×3 (09:18→20:30)
[2020-06-28] MEDS: POLYETHYLENE GLYCOL POWDER 17 GM PACK PO SCH (09:18)
[2020-06-28] MEDS: ISOSORBIDE MONONITRATE 30 MG TABLET PO SCH (09:18)
[2020-06-28] MEDS: hydrALAZINE 10 MG TABLET PO SCH ×3 (09:18→20:30)
[2020-06-28] MEDS: PANTOPRAZOLE 40 MG TABLET PO SCH ×2 (09:18→20:30)
[2020-06-28] MEDS: BUDESONIDE/FORMOTEROL 160-4.5 INHALER 6 GM INH SCH ×2 (09:19→20:30)
[2020-06-28] MEDS: DOBUTamine 500 MG/250 ML PREMIX IV SCH (10:57)
[2020-06-28] MEDS: ITRACONAZOLE 100 MG CAPSULE PO SCH (16:33)
[2020-06-29] MEDS: ALUMINUM/MAGNES/SIMETH MAX STR 30 ML UDCUP PO PRN ×2 (00:40→08:42)
[2020-06-29] MEDS: methylPREDNISolone SOD SUC 40 MG/1 ML VIAL IV SCH ×2 (00:40→08:48)
[2020-06-29] MEDS: ALBUTEROL 2.5 MG/3 ML NEB RESP TX SCH ×2 (03:05→07:46)
[2020-06-29 05:43] LABS: Hematocrit 27.8 VOL% (42.0-52.0); Hemoglobin 8.4 GM/DL (14.0-18.0); Immature Granulocytes Absolute 0.17 #; Lymphocytes # 0.8 10*3/uL (1.4-4.0); Lymphocytes % 9.5 % (21.2-54.2); Mean Corpuscular HGB Conc 30.2 GM/DL (32-36); Mean Corpuscular Volume 100.7 FL (87-102); Monocytes % 2.5 % (1.7-12.7); NRBC # 0.02 10*3/uL; Platelet Count 171 T/CUMM (130-400); Red Blood Count 2.76 MC/CUMM (3.8-5.5); Red Cell Distribution Width 18.4 % (9.3-17.3); White Blood Count 8.6 T/CUMM (4-12)
[2020-06-29 06:01] LABS: Calcium 8.8 MG/DL (8.5-10.1); Osmolality,Calculated 306.7 MOS/KG (273-304); Potassium 5.2 MMOL/L (3.5-5.1)
[2020-06-29 06:31] LABS: Lymphocytes 7 % (20-55); Segmented Neutrophils 91 % (50-85); Total Cells Counted 100
[2020-06-29 06:33] LABS: Macrocytosis Slight; Platelet Estimate Adequate; Polychromasia Slight
[2020-06-29 07:49] VITALS: BP 148/55
[2020-06-29] MEDS: ITRACONAZOLE 100 MG CAPSULE PO SCH (08:39)
[2020-06-29] MEDS: ASPIRIN EC 81 MG TABLET PO SCH (08:39)
[2020-06-29] MEDS: FERROUS SULFATE 325 MG TABLET PO SCH (08:39)
[2020-06-29] MEDS: FUROSEMIDE 80 MG TABLET PO SCH (08:39)
[2020-06-29] MEDS: NEBIVOLOL 10 MG TABLET PO SCH (08:39)
[2020-06-29] MEDS: PANTOPRAZOLE 40 MG TABLET PO SCH (08:39)
[2020-06-29] MEDS: LEVOFLOXACIN 750 MG TABLET PO SCH (08:39)
[2020-06-29] MEDS: hydrALAZINE 10 MG TABLET PO SCH (08:39)
[2020-06-29] MEDS: MULTIVITAMIN (BEROCCA) TABLET PO SCH (08:39)
[2020-06-29] MEDS: DOCUSATE SODIUM 100 MG CAPSULE PO SCH (08:40)
[2020-06-29] MEDS: ISOSORBIDE MONONITRATE 30 MG TABLET PO SCH (08:42)
[2020-06-29] MEDS: BUDESONIDE/FORMOTEROL 160-4.5 INHALER 6 GM INH SCH (08:48)
[2020-06-29] MEDS: POLYETHYLENE GLYCOL POWDER 17 GM PACK PO SCH (09:25)
== END 2020-06-29 10:06 | DRG 291 ==
LOC: N.ED 16:43 → N.EDINP 19:36 → SUATTDRO 19:36 → N.TELES 19:46
PROVIDERS: ADMIT Internal Medicine; ATTEND Internal Medicine